=== PATIENT | female | born 1940 | race Caucasian/White ===

== ENCOUNTER 2021-07-29 15:12 | Inpatient (IN) | payer MEDICARE, OTHER ==
[~2021-07-29] VITALS: Ht 152.4 cm; Wt 65.4 kg
[2021-07-29] MEDS ORDERED: ERGO500090 PO (15:48)
[2021-07-29] MEDS ORDERED: NYST15PO9 TP (15:48)
[2021-07-29] MEDS ORDERED: [UNRECOGNIZED DRUG - CODE] TP (15:48)
[2021-07-29] MEDS ORDERED: MULT-460 PO (15:48)
[2021-07-29] MEDS ORDERED: ALPR1TAB2 PO (15:48)
[2021-07-29] MEDS ORDERED: ARIP15TA36 PO (15:48)
--- NOTE | 2021-07-29 16:03 | NUR ---
Nsg Note; admission Admission Note with Justification for Admission to [facility] Patient admitted to [facility] for protective oversight for emergency stabilization of acute psychiatric crisis. Pt admitted from: Home Mode of arrival: Secure Transport Accompanied By: EMS personnel Precipitating behaviors that initiated intake and admission: paranoia, packing bags to leave home, delusional, thinks someone is trying to steal her stuff, hiding knives, writing her name all over her clothes with a sharpie, insomnia, periods of aggression Description of failure of out patient attempts at stabilization in previous setting list behavior and medication trials: medication changes Behaviors and assessment findings upon admission: calm, amb to floor and room with staff, speech garbled, able to make needs known, states she was told she was coming here to see the doctor then go home, accepted well being told she is here for several weeks, conversant, oriented to name and but not date and knows she is in the hospital Plan: Admit for protective oversight for adjustment and stabilization of medications, behaviors and mood. Intense treatment regimen including groups, medication adjustments, therapy, consistent regimen for ADL's, self care, and sleep hygiene. Daily monitoring by Inpatient staff, Psychiatry, and Medical Physician.
[2021-07-29 16:12] VITALS: BP 162/79
[2021-07-29] MEDS ORDERED: NYSTATIN TOPICAL POWDER 15GM BOTTLE. TP PRN (16:15)
[2021-07-29] MEDS ORDERED: MAGNESIUM HYDROXIDE 2,400 MG/30 ML ORAL.SUSP. PO PRN (16:15)
[2021-07-29] MEDS ORDERED: MAG HYDROX/AL HYDROX/SIMETH 30 ML ORAL.SUSP PO PRN (16:15)
[2021-07-29] MEDS ORDERED: ACETAMINOPHEN 325 MG TABLET PO PRN (16:15)
[2021-07-29] MEDS ORDERED: METHYL SALICYLATE/MENTHOL TOPICAL OINTMENT 57GM TUBE. TP PRN (16:15)
[2021-07-29] MEDS ORDERED: diphenhydrAMINE/ZINC 2%/0.1% 28GM TUBE. TP PRN (16:30)
--- NOTE | 2021-07-29 17:04 | NUR ---
Nsg Note; vaccine status Pt refused flu vaccine this season and again refused it when offered today. Pt is not vaccinated for Covid
[2021-07-29 18:59] LABS: BASO # 0.1 x10^3/uL (0.0-0.2); BASO % 1 % (0-3); EOS # 0.1 x10^3/uL (0.0-0.7); EOS % 1 % (0-3); HEMATOCRIT 41.7 % (36.0-47.0); HEMOGLOBIN 13.9 g/dL (12.0-15.5); LYMPH # 1.3 x10^3/uL (1.0-4.8); LYMPH % 13 % (24-48); MEAN CORPUSCULAR HEMOGLOBIN 31 pg (25-35); MEAN CORPUSCULAR HGB CONC 33 g/dL (31-37); MEAN CORPUSCULAR VOLUME 92 fL (79-100); MONO # 0.5 x10^3/uL (0.0-1.1); MONO % 6 % (0-9); NEUT # 7.6 x10^3uL (1.8-7.7); NEUT % 79 % (31-73); PLATELET COUNT 295 x10^3/uL (140-400); RED BLOOD COUNT 4.55 x10^6/uL (3.50-5.40); RED CELL DISTRIBUTION WIDTH 14.6 % (11.5-14.5); WHITE BLOOD COUNT 9.6 x10^3/uL (4.0-11.0)
[2021-07-29 19:15] LABS: ALBUMIN 3.1 g/dL (3.4-5.0); ALBUMIN/GLOBULIN RATIO 0.8 (1.0-1.7); CALCIUM 9.7 mg/dL (8.5-10.1); CREATININE 0.9 mg/dL (0.6-1.0); GFR 60.4; MAGNESIUM 2.3 mg/dL (1.8-2.4); POTASSIUM 4.2 mmol/L (3.5-5.1); TOTAL BILIRUBIN 0.3 mg/dL (0.2-1.0); TOTAL PROTEIN 7.1 g/dL (6.4-8.2)
[2021-07-29] MEDS: ALPRAZolam 0.5 MG TABLET PO SCH ×2 (21:10→23:33)
--- NOTE | 2021-07-29 22:17 | PDOC ---
Exam Note: Florencio Note: Please also refer to the separate dictated note~for this date of service dictated separately.~Patient seen individually. Discussed the patient with Nursing staff reviewed the chart.~Reviewed interim history and current functioning. Reviewed vital signs,~Labs/ Radiology~and current medications noted below. Continue current treatment with the changes noted in the dictated addendum note Assessment: Vital Signs/I&O: Vital Signs Date Time Temp Pulse Resp B/P (MAP) Pulse Ox O2 Delivery O2 Flow Rate FiO2 07/29/21 16:12 98.1 68 16 162/79 (106) 95 Labs: Laboratory Tests Test 07/29/21 18:50 White Blood Count 9.6 x10^3/uL (4.0-11.0) Red Blood Count 4.55 x10^6/uL (3.50-5.40) Hemoglobin 13.9 g/dL (12.0-15.5) Hematocrit 41.7 % (36.0-47.0) Mean Corpuscular Volume 92 fL (79-100) Mean Corpuscular Hemoglobin 31 pg (25-35) Mean Corpuscular Hemoglobin Concent 33 g/dL (31-37) Red Cell Distribution Width 14.6 % (11.5-14.5) H Platelet Count 295 x10^3/uL (140-400) Neutrophils (%) (Auto) 79 % (31-73) H Lymphocytes (%) (Auto) 13 % (24-48) L Monocytes (%) (Auto) 6 % (0-9) Eosinophils (%) (Auto) 1 % (0-3) Basophils (%) (Auto) 1 % (0-3) Neutrophils # (Auto) 7.6 x10^3uL (1.8-7.7) Lymphocytes # (Auto) 1.3 x10^3/uL (1.0-4.8) Monocytes # (Auto) 0.5 x10^3/uL (0.0-1.1) Eosinophils # (Auto) 0.1 x10^3/uL (0.0-0.7) Basophils # (Auto) 0.1 x10^3/uL (0.0-0.2) Sodium Level 134 mmol/L (136-145) L Potassium Level 4.2 mmol/L (3.5-5.1) Chloride Level 101 mmol/L (98-107) Carbon Dioxide Level 27 mmol/L (21-32) Anion Gap 6 (6-14) Blood Urea Nitrogen 10 mg/dL (7-20) Creatinine 0.9 mg/dL (0.6-1.0) Estimated GFR (Cockcroft-Gault) 60.4 BUN/Creatinine Ratio 11 (6-20) Glucose Level 109 mg/dL (70-99) H Calcium Level 9.7 mg/dL (8.5-10.1) Magnesium Level 2.3 mg/dL (1.8-2.4) Total Bilirubin 0.3 mg/dL (0.2-1.0) Aspartate Amino Transferase (AST) 12 U/L (15-37) L Alanine Aminotransferase (ALT) 12 U/L (14-59) L Alkaline Phosphatase 93 U/L (46-116) Total Protein 7.1 g/dL (6.4-8.2) Albumin 3.1 g/dL (3.4-5.0) L Albumin/Globulin Ratio 0.8 (1.0-1.7) L Current Medications: I have reviewed the current psychotropics carefully including drug interactions. Risk benefit ratio favors no change other than as noted in my dictated progress note. Diagnosis: Problems: (1) Schizophrenia, chronic with acute exacerbation PATRIC DAVIS MD Jul 29, 2021 22:17
[2021-07-30 06:22] VITALS: BP 142/55
[2021-07-30 07:09] LABS: BACTERIA,URINE MANY /HPF (0-FEW); CLARITY,URINE CLOUDY; COLOR,URINE YELLOW; GLUCOSE,URINE NEG (NEG); NITRITE,URINE POS (NEG); UROBILINOGEN,URINE 0.2 mg/dL (0.2 mg/dL); WBC,URINE TNTC /HPF (0-4)
[2021-07-30] MEDS: ARIPiprazole 15 MG TABLET PO SCH (08:39)
[2021-07-30] MEDS: MULTIVITAMIN with MINERAL TABLET. PO SCH (08:39)
--- NOTE | 2021-07-30 09:21 | NUR ---
Nursing Note: Pt was in her room at time of AM med pass and assessment. She was pleasant and cooperative with her assessment. Compliant in taking her meds whole. She denied any pain at this time. Pt is currently working with PT in the hallway. Will continue to monitor.
--- NOTE | 2021-07-30 10:56 | NUR ---
WEEKLY ACTIVITY THERAPY NOTE Date of Admission:07/29/21 Date of AT Assessment: TBD Precipitating behaviors that initiated intake and admission: paranoia, packing bags to leave home, delusional, thinks someone is trying to steal her stuff, hiding knives, writing her name all over her clothes with a sharpie, insomnia, periods of aggression Goal aimed: TBD Initial Goal: TBD Weekly progress towards goal: NA Group participation level: NA Weekly highlights: arrived on [facility] Behaviors observed: Plan: meet/assess pt Beneficial adaptations: TBD
[2021-07-30] MEDS ORDERED: traZODone 50 MG TABLET. PO PRN (11:15)
--- NOTE | 2021-07-30 11:42 | HP ---
DATE OF SERVICE: 07/29/2021 ADMIT DATE: 07/29/2021 PSYCHIATRIC ADMISSION HISTORY/EVALUATION This note covers elements not covered in my initial note of 07/29. The patient was seen individually in the evening of 07/29 at length in her room. Discussed with Radha, nursing staff, reviewed the chart. Previously, I discussed the patient with Laurie Zimmerman, patient relations coordinator and obtained information from her primary care physician's office with ___ IDENTIFYING DATA: The patient is a 80-year-old female referred by her primary care physician noted above and admitted at the behest of her daughter who is her legal guardian on account of worsening psychosis within the context of her diagnosis of schizophrenia, chronic paranoid type versus schizoaffective disorder, bipolar type. She has been living at home with her and reportedly has been extremely paranoid, psychotic, hiding knives. She is delusional, thinking someone is stealing her things, packing her bags to leave. She is writing all over her clothing with a Sharpie. Reportedly, she had marked insomnia, had been off her medications and failed outpatient psychiatric interventions with her outpatient psychiatrist. The patient's behaviors were deemed dangerous and referred for inpatient psychiatric stabilization. CHIEF COMPLAINT: "I came today. They are stealing things from me." It is very difficult to understand the patient since she seems to have some articulation problems or perhaps some dystonia from her Abilify. HISTORY OF PRESENT ILLNESS: Reportedly, the patient has a long history of schizophrenia, chronic paranoid type. She has been treated as an outpatient and she states she has been treated by Dr. Solomon. Recently, she has had marked insomnia, psychosis, paranoia, agitation, sleep and appetite changes. No clear suicidal or homicidal ideation. PAST PSYCHIATRIC HISTORY: As above. MEDICAL HISTORY: Dysphagia, recurrent UTIs, vitamin D deficiency, garbled speech. DIET: Regular. ACCU-CHEKS: None. Ambulates independently. Takes medications whole. UA as needed. CURRENT PSYCHOTROPICS: Xanax 1 mg at bedtime, Abilify 15 mg a day. FAMILY HISTORY: Noncontributory. 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 No alcohol, drug abuse, physical, sexual, elder abuse. She is not known to be a perpetrator. REACTION TO HOSPITALIZATION: The patient accepting of it. ASSETS: Supportive family. REVIEW OF SYSTEMS: Difficulty with speech. No CV, , pulmonary, eye system symptoms on review. MENTAL STATUS EXAM: The patient is oriented to herself, situation. She knew she was admitted earlier today, knew the year was 2021, but thought the president was Been though she knew the prior president was President Jessica. Speech difficult to understand. Abstraction fair. Computation impaired. Language function intact. She is quite paranoid, suspicious with questionable hallucinations. No active suicidal or homicidal ideation. IMPRESSION: Schizophrenia, chronic paranoid type with acute exacerbation versus schizoaffective disorder, bipolar type, mixed, with psychotic features; anxiety disorder, unspecified; impulse control disorder, unspecified; mild cognitive impairment versus major neurocognitive disorder, early Alzheimer, vascular with delusion, depression. Rest as above. PLAN: Admit to Geropsychiatry unit at [facility]. I will see the patient daily individually from a psychiatric standpoint, medical followup, Dr. Dale/Dr. Bedoya. Continue the patient on her current psychotropics. Consider trazodone for insomnia or Remeron and Depakote as a mood stabilizer. May need to adjust Abilify depending on baseline assessment. ESTIMATED LENGTH OF STAY: 10-12 days. DISPOSITION PLANS: Back home to outpatient treatment once stable. GENESIS PEREZ: Maldonado TID: [id number]
[2021-07-30 13:10] LABS: THYROXINE 10.2 ug/dL (4.5-12.0)
--- NOTE | 2021-07-30 13:10 | NUR ---
ACTIVITY THERAPY ASSESSMENT completed based on notes, observation, and interview. Pt was sitting in the hallway after lunch and willing to answer assessment questions. Pt ambulates with a walker and did not report any pain during assessment. Pt has garbled speech and is very difficult to understand. Pt was delusional during time of assessment. HEAD USHER oriented pt to activities offered on the unit and asked her what activities she enjoys. Pt said "I don't get out much because I have a broken knee." Pt did say that she enjoys watching TV and reading. Pt reports that she is from her Romeo and HEAD USHER was unable to understand if she has children or not. Pt said "I'm " when talking about children.Pt did report some stress from being in the hospital but seemed to be in good spirits. Pt reports that she came from home and is fairly independent. Per notes pt has been cooperative and compliant sense admission. Initial goal aimed to increase socialization and engagement. Pt will participate in at least three Activity Therapy sessions per week. Addendum: 08/20/21 at 1128 by JOSSELINE CAPONE ACT Goal changed 08/20:Pt. will participate in at least five Activity Therapy sessions before discharge
--- NOTE | 2021-07-30 15:50 | RAD ---
EXAM: CT HEAD WITHOUT CONTRAST. HISTORY: Altered mental status. TECHNIQUE: Computed tomography of the head was performed without intravenous contrast. One or more of the following individualized dose reduction techniques were utilized for this examination: 1. Automated exposure control. 2. Adjustment of the mA and/or kV according to patient size. 3. Use of iterative reconstruction technique. COMPARISON: None. FINDINGS: There is no intracranial hemorrhage. Hypoattenuation within the periventricular white matte r indicates mild chronic microangiopathic change. The ventricles are normal in size and position. There is mucosal thickening bilaterally within the anterior nasal cavity, versus mucous retention cys ts or another mass. The orbits are unremarkable. The temporal bones are unremarkable. The calvarium reveals no suspicious lesions. IMPRESSION: 1. No acute intracranial findings for patient age. 2. Mucosal thickening versus a mass within the anterior nasal cavity. Recommend correlation with dire ct visualization. Electronically signed by: Felipe Pinzon MD (07/30/2021 3:48 PM) [id number]
--- NOTE | 2021-07-30 17:07 | NUR ---
Initial treatment team note: Pt ate 100% of breakfast this morning and slept 4.75 hours last night. Pt is mostly calm and compliant with cares. Pt is A/O x 4; however, was also found this morning in her room digging in her stools. Pt speech is difficult to understand and pt does at times appear anxious but is easily redirected. SW to completed PSA today and will look toward finding out more information re: her psych history so that records can be gathered.
[2021-07-30 17:12] VITALS: BP 124/54
[2021-07-30] MEDS: ALPRAZolam 0.5 MG TABLET PO SCH (20:41)
[2021-07-30 20:52] LABS: CHOLESTEROL/HDL RATIO 2.3; THYROID STIM HORMONE (TSH) 4.2 uIU/mL (0.358-3.740)
--- NOTE | 2021-07-30 22:13 | PDOC ---
Exam Note: Florencio Note: Please also refer to the separate dictated note~for this date of service dictated separately.~Patient seen individually. Discussed the patient with Nursing staff reviewed the chart.~Reviewed interim history and current functioning. Reviewed vital signs,~Labs/ Radiology~and current medications noted below. Continue current treatment with the changes noted in the dictated addendum note Assessment: Vital Signs/I&O: Vital Signs Date Time Temp Pulse Resp B/P (MAP) Pulse Ox O2 Delivery O2 Flow Rate FiO2 07/30/21 17:12 97.5 48 16 124/54 (77) 99 I & O 07/29/21 07/29/21 07/30/21 15:00 23:00 07:00 Intake Total 480 ml Balance 480 ml Labs: Laboratory Tests Test 07/30/21 05:50 Urine Collection Type Unknown Urine Color Yellow Urine Clarity Cloudy Urine pH 6.0 Urine Specific [place] 1.020 Urine Protein 100 mg/dl (NEG-TRACE) Urine Glucose (UA) Neg mg/dL (NEG) Urine Ketones (Stick) Neg mg/dL (NEG) Urine Blood Mod (NEG) Urine Nitrite Pos (NEG) Urine Bilirubin Neg (NEG) Urine Urobilinogen Dipstick 0.2 mg/dL (0.2 mg/dL) Urine Leukocyte Esterase Large (NEG) Urine RBC 3-5 /HPF (0-2) Urine WBC Tntc /HPF (0-4) Urine Squamous Epithelial Cells None /LPF Urine Bacteria Many /HPF (0-FEW) Current Medications: Meds: Laboratory Tests Test 07/30/21 05:50 Urine Collection Type Unknown Urine Color Yellow Urine Clarity Cloudy Urine pH 6.0 Urine Specific [place] 1.020 Urine Protein 100 mg/dl Urine Glucose (UA) Neg mg/dL Urine Ketones (Stick) Neg mg/dL Urine Blood Mod Urine Nitrite Pos Urine Bilirubin Neg Urine Urobilinogen Dipstick 0.2 mg/dL Urine Leukocyte Esterase Large Urine RBC 3-5 /HPF Urine WBC Tntc /HPF Urine Squamous Epithelial Cells None /LPF Urine Bacteria Many /HPF Current Medications Medications (Trade) Dose Ordered Sig/Dawit Route PRN Reason Start Time Stop Time Status Last Admin Dose Admin Acetaminophen (Tylenol) 650 mg PRN Q6HRS PRN PO MILD PAIN / TEMP > 100.3'F 07/29/21 16:15 Multi-Ingredient Ointment (Analgesic [place]) 1 paulo PRN QID PRN TP MUSCLE PAIN 07/29/21 16:15 Al Hydroxide/Mg Hydroxide (Mylanta Plus Xs) 15 ml PRN AFTMEALHC PRN PO DYSPEPSIA 07/29/21 16:15 Magnesium Hydroxide (Milk Of Magnesia) 2,400 mg PRN QHS PRN PO CONSTIPATION 07/29/21 16:15 Aripiprazole (Abilify) 15 mg DAILY PO 07/30/21 09:00 07/30/21 08:39 Nystatin (Nystop) 1 paulo PRN BID PRN TP RASH 07/29/21 16:15 Alprazolam (Xanax) 1 mg HS PO 07/29/21 21:00 07/30/21 20:41 Zinc Acetate/ Diphenhydramine (Benadryl Topical) 1 paulo PRN TID PRN TP ITCHY SKIN 07/29/21 16:30 Vitamin D (Vitamin D3) 50,000 unit WEEKLY PO 08/02/21 09:00 Multivitamins/ Calcium (Thera-M Plus) 1 tab DAILY PO 07/30/21 09:00 07/30/21 08:39 Olanzapine (ZyPREXA ZYDIS) 2.5 mg PRN Q2HR PRN PO PSYCHOSIS 07/30/21 11:15 Trazodone HCl (Desyrel) 50 mg PRN QHS PRN PO INSOMNIA, MAY REPEAT X1 07/30/21 11:15 07/30/21 20:41 Current Medications Medications (Trade) Dose Ordered Sig/Dawit Route PRN Reason Start Time Stop Time Status Last Admin Dose Admin Aripiprazole (Abilify) 15 mg DAILY PO 07/30/21 09:00 07/30/21 08:39 Multivitamins/ Calcium (Thera-M Plus) 1 tab DAILY PO 07/30/21 09:00 07/30/21 08:39 Trazodone HCl (Desyrel) 50 mg PRN QHS PRN PO INSOMNIA, MAY REPEAT X1 07/30/21 11:15 07/30/21 20:41 I have reviewed the current psychotropics carefully including drug interactions. Risk benefit ratio favors no change other than as noted in my dictated progress note. Diagnosis: Problems: (1) Schizophrenia, paranoid, chronic with acute exacerbation (2) Schizoaffective disorder, bipolar type (3) Mild cognitive impairment (4) Anxiety disorder, unspecified (5) Impulse control disorder, unspecified (6) Schizophrenia, chronic with acute exacerbation PATRIC DAVIS MD Jul 30, 2021 22:13
[2021-07-31 00:16] LABS: HEMOGLOBIN A1C 5.4 % (4.8-5.6)
--- NOTE | 2021-07-31 02:07 | NUR ---
assumed care of patient at 2100. Patient has been calm and cooperative. She took her medications whole with water. She did have some restlessness during the night, and was up a few times.
[2021-07-31 06:30] VITALS: BP 129/74
[2021-07-31] MEDS: ARIPiprazole 15 MG TABLET PO SCH (09:27)
[2021-07-31] MEDS: MULTIVITAMIN with MINERAL TABLET. PO SCH (09:27)
--- NOTE | 2021-07-31 13:01 | NUR ---
LATE ENTRY: WOUND CARE: Dressing change instructions left for this patient in book at nursing station. Spoke with RN regarding wounds and based dressings off picture assessment. Patient in isolation, unable to see yesterday. RN agreeable with dressings and v/u. Wound care will follow up next week if able to see patient. Please see orange paper regarding wound dressing change instructions.
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
[2021-07-31 16:10] VITALS: BP 109/63
--- NOTE | 2021-07-31 16:22 | NUR ---
Nursing note: MILL BEAM FITTER reports pulse rate 40. Manual pulse checked and confirmed pulse of 40. Pt is alert and oriented and is reporting no symptoms of low pulse rate. Will continue to monitor and report to Dr. Bedoya on rounds tomorrow.
[2021-07-31] MEDS: DIVALPROEX ER 500 MG TAB.ER.24H PO SCH (21:10)
[2021-07-31] MEDS: ALPRAZolam 0.5 MG TABLET PO SCH (21:10)
--- NOTE | 2021-07-31 22:15 | PDOC ---
Exam Note: Florencio Note: Please also refer to the separate dictated note~for this date of service dictated separately.~Patient seen individually. Discussed the patient with Nursing staff reviewed the chart.~Reviewed interim history and current functioning. Reviewed vital signs,~Labs/ Radiology~and current medications noted below. Continue current treatment with the changes noted in the dictated addendum note Assessment: Vital Signs/I&O: Vital Signs Date Time Temp Pulse Resp B/P (MAP) Pulse Ox O2 Delivery O2 Flow Rate FiO2 07/31/21 16:10 97.2 18 109/63 (78) 99 07/31/21 06:30 75 Room Air I & O 07/30/21 07/30/21 07/31/21 14:59 22:59 06:59 Intake Total 880 ml 780 ml Balance 880 ml 780 ml Current Medications: Meds: Current Medications Medications (Trade) Dose Ordered Sig/Dawit Route PRN Reason Start Time Stop Time Status Last Admin Dose Admin Acetaminophen (Tylenol) 650 mg PRN Q6HRS PRN PO MILD PAIN / TEMP > 100.3'F 07/29/21 16:15 Multi-Ingredient Ointment (Analgesic [place]) 1 paulo PRN QID PRN TP MUSCLE PAIN 07/29/21 16:15 Al Hydroxide/Mg Hydroxide (Mylanta Plus Xs) 15 ml PRN AFTMEALHC PRN PO DYSPEPSIA 07/29/21 16:15 Magnesium Hydroxide (Milk Of Magnesia) 2,400 mg PRN QHS PRN PO CONSTIPATION 07/29/21 16:15 Aripiprazole (Abilify) 15 mg DAILY PO 07/30/21 09:00 07/31/21 09:27 Nystatin (Nystop) 1 paulo PRN BID PRN TP RASH 07/29/21 16:15 Alprazolam (Xanax) 1 mg HS PO 07/29/21 21:00 07/31/21 21:10 Zinc Acetate/ Diphenhydramine (Benadryl Topical) 1 paulo PRN TID PRN TP ITCHY SKIN 07/29/21 16:30 Vitamin D (Vitamin D3) 50,000 unit WEEKLY PO 08/02/21 09:00 Multivitamins/ Calcium (Thera-M Plus) 1 tab DAILY PO 07/30/21 09:00 07/31/21 09:27 Olanzapine (ZyPREXA ZYDIS) 2.5 mg PRN Q2HR PRN PO PSYCHOSIS 07/30/21 11:15 Trazodone HCl (Desyrel) 50 mg PRN QHS PRN PO INSOMNIA, MAY REPEAT X1 07/30/21 11:15 07/30/21 20:41 Divalproex Sodium (Depakote Er) 500 mg QHS PO 07/31/21 21:00 07/31/21 21:10 Current Medications Medications (Trade) Dose Ordered Sig/Dawit Route PRN Reason Start Time Stop Time Status Last Admin Dose Admin Divalproex Sodium (Depakote Er) 500 mg QHS PO 07/31/21 21:00 07/31/21 21:10 I have reviewed the current psychotropics carefully including drug interactions. Risk benefit ratio favors no change other than as noted in my dictated progress note. Diagnosis: Problems: (1) Bipolar disorder, current episode mixed, severe, with psychotic features (2) Schizophrenia, chronic with acute exacerbation (3) Schizoaffective disorder, bipolar type (4) Impulse control disorder, unspecified (5) Mild cognitive impairment (6) Anxiety disorder, unspecified (7) Schizophrenia, paranoid, chronic with acute exacerbation PATRIC DAVIS MD Jul 31, 2021 22:15
--- NOTE | 2021-08-01 02:52 | CONS ---
DATE OF CONSULTATION: 07/31/2021 ATTENDING PHYSICIANS: Dr. Muñoz, Dr. Bedoya. We are asked to see the patient for medical consultation. HISTORY OF PRESENT ILLNESS: The patient is a 80-year-old female who has been living at home with her in [place], [place]. She has a longstanding history of schizoaffective disorder. She has been somewhat inappropriate, took a Sharpie and wrote names on her clothing. She has been hiding knives and seeing things, somewhat delusional. She is admitted here for further treatment adjustment of her medications. PAST MEDICAL HISTORY: From the chart indicates that she has a longstanding history of schizoaffective disorder, dysphagia, history of urinary tract infection and some dysarthria with her language. MEDICATIONS: Quite simple. She was on scheduled alprazolam, Abilify, diphenhydramine, vitamin D2, multivitamin and nystatin. ALLERGIES: SHE HAS ALLERGIES TO HALOPERIDOL, EXACT REACTION IS UNCLEAR. SOCIAL HISTORY: She is a nonsmoker, nondrinker. FAMILY HISTORY: Unobtainable. REVIEW OF SYSTEMS: Unobtainable due to the patient's confusion. PHYSICAL EXAMINATION: GENERAL: When I saw her, this is a pleasant elderly female in no acute distress. INITIAL VITAL SIGNS: Showed blood pressure 129/74 mm, her temperature 97.1 degrees Fahrenheit, her pulse is 75 and regular, oxygen saturation 99% on room air. HEENT: Head is without trauma. Pupils are reactive. Sclerae nonicteric. There is mild component of tardive dyskinesia. NECK: Supple, no bruits. LUNGS: Good breath sounds. CARDIOVASCULAR: Regular heart tones. No gallops. ABDOMEN: Soft. No guarding. EXTREMITIES: Showed degenerative arthritis and changes of her knees and ankles. SKIN: Warm and dry. NEUROLOGIC: Pleasantly confused. PERTINENT LABORATORY AND X-RAY STUDIES: Her admission hemoglobin was 13.9 g/dL with white count of 9600. Her TSH was normal. Her chemistry panel was unremarkable. Serology negative for Treponema pallidum. ASSESSMENT: 1. This 80-year-old female has a longstanding schizoaffective disorder with delusional behavior. 2. History of dysarthria and dysphagia. RECOMMENDATIONS: 1. I have reviewed her medications they are quite simple and should be continued on the same dosage. 2. She is stable from a medical standpoint at this time. Thank you again for asking me to see the patient for medical consultation. We shall gladly follow along during her inpatient course. UMER/LAKISHA DR: Hossein TID: [id number]
--- NOTE | 2021-08-01 06:10 | NUR ---
Patient was withdrawn to her room in the evening. She is pleasant when approached and cooperative. Patients speech is very hard to understand it is garbled and unintelligible. Patient drank an entire glass of water with her HS medications. Her preliminary UA has shown E.Coli >100,000. Patient was started on depakote ER last night, no adverse reactions have been noted.
[2021-08-01 06:18] VITALS: BP 137/59
[2021-08-01] MEDS: MULTIVITAMIN with MINERAL TABLET. PO SCH (09:10)
[2021-08-01] MEDS: ARIPiprazole 15 MG TABLET PO SCH (09:10)
--- NOTE | 2021-08-01 09:18 | PDOC ---
Exam Note: Florencio Note: This note is a late entry for 07/30/2021 covers elements not covered in my initial note. Subjective: The patient was reviewed at treatment team meeting individually in the morning on 07/30/2021 with Sofie Abdi, Laurie Light, and Irena Herrera (social services coordinator), Floridalma, activity therapy, and Cuco SIMON, discussed and reviewed the chart. Discussed her diagnoses, progress at length. The patient slept 4-3/4 hours previous night. Average sleep 4-3/4 hours. Appetite 100%. We will do a CT head if not done in 6 months and requesting past psyche records. She is alert and oriented x4. UA has been checked this morning. She has been digging in her bowels. We will defer to Dr. Dale, somewhat anxious at midnight when she woke up. We will start Zyprexa 2.5 mg q.2h. p.r.n. psychosis and agitation, maximum 7.5 mg in 24 hours and trazodone 50 mg h.s. p.r.n., may repeat x1. Review of Systems: Hard of hearing. No CV, , pulmonary, eye system symptoms on review. Reliability poor. Mental Status Exam: The patient is oriented to herself. Insight and judgment, recent and remote memory, attention and concentration, fund of knowledge is poor consistent with her diagnoses. Laboratory Data: Reviewed. Impression: Schizoaffective disorder, bipolar type, mixed with psychotic features. Schizophrenia with acute exacerbation. Anxiety disorder unspecified. Impulse control disorder unspecified. Plan: We will continue current psychotropics. Reviewed drug interactions, risk-benefit ratio. Assessment: Vital Signs/I&O: Vital Signs Date Time Temp Pulse Resp B/P (MAP) Pulse Ox O2 Delivery O2 Flow Rate FiO2 08/01/21 06:18 97.2 44 16 137/59 (85) 98 07/31/21 06:30 Room Air I & O 07/31/21 07/31/21 08/01/21 15:00 23:00 07:00 Intake Total 720 ml 120 ml Balance 720 ml 120 ml Current Medications: Meds: Current Medications Medications (Trade) Dose Ordered Sig/Dawit Route PRN Reason Start Time Stop Time Status Last Admin Dose Admin Divalproex Sodium (Depakote Er) 500 mg QHS PO 07/31/21 21:00 07/31/21 21:10 I have reviewed the current psychotropics carefully including drug interactions. Risk benefit ratio favors no change other than as noted in my dictated progress note. Diagnosis: Problems: (1) Schizophrenia, chronic with acute exacerbation (2) Schizoaffective disorder, bipolar type (3) Impulse control disorder, unspecified (4) Mild cognitive impairment (5) Anxiety disorder, unspecified (6) Schizophrenia, paranoid, chronic with acute exacerbation (7) Bipolar disorder, current episode mixed, severe, with psychotic features PATRIC DAVIS MD Aug 01, 2021 09:18
[2021-08-01 15:56] VITALS: BP 109/52
[2021-08-01] MEDS: DIVALPROEX ER 500 MG TAB.ER.24H PO SCH (20:27)
[2021-08-01] MEDS: ALPRAZolam 0.5 MG TABLET PO SCH (20:27)
--- NOTE | 2021-08-01 22:02 | PDOC ---
Exam Note: Florencio Note: Please also refer to the separate dictated note~for this date of service dictated separately.~Patient seen individually. Discussed the patient with Nursing staff reviewed the chart.~Reviewed interim history and current functioning. Reviewed vital signs,~Labs/ Radiology~and current medications noted below. Continue current treatment with the changes noted in the dictated addendum note Assessment: Vital Signs/I&O: Vital Signs Date Time Temp Pulse Resp B/P (MAP) Pulse Ox O2 Delivery O2 Flow Rate FiO2 08/01/21 15:56 97.4 56 16 109/52 (71) 97 07/31/21 06:30 Room Air I & O 07/31/21 07/31/21 08/01/21 15:00 23:00 07:00 Intake Total 720 ml 120 ml Balance 720 ml 120 ml Current Medications: Meds: Current Medications Medications (Trade) Dose Ordered Sig/Dawit Route PRN Reason Start Time Stop Time Status Last Admin Dose Admin Acetaminophen (Tylenol) 650 mg PRN Q6HRS PRN PO MILD PAIN / TEMP > 100.3'F 07/29/21 16:15 Multi-Ingredient Ointment (Analgesic [place]) 1 paulo PRN QID PRN TP MUSCLE PAIN 07/29/21 16:15 Al Hydroxide/Mg Hydroxide (Mylanta Plus Xs) 15 ml PRN AFTMEALHC PRN PO DYSPEPSIA 07/29/21 16:15 Magnesium Hydroxide (Milk Of Magnesia) 2,400 mg PRN QHS PRN PO CONSTIPATION 07/29/21 16:15 Aripiprazole (Abilify) 15 mg DAILY PO 07/30/21 09:00 08/01/21 09:10 Nystatin (Nystop) 1 paulo PRN BID PRN TP RASH 07/29/21 16:15 Alprazolam (Xanax) 1 mg HS PO 07/29/21 21:00 08/01/21 20:27 Zinc Acetate/ Diphenhydramine (Benadryl Topical) 1 paulo PRN TID PRN TP ITCHY SKIN 07/29/21 16:30 Vitamin D (Vitamin D3) 50,000 unit WEEKLY PO 08/02/21 09:00 Multivitamins/ Calcium (Thera-M Plus) 1 tab DAILY PO 07/30/21 09:00 08/01/21 09:10 Olanzapine (ZyPREXA ZYDIS) 2.5 mg PRN Q2HR PRN PO PSYCHOSIS 07/30/21 11:15 Trazodone HCl (Desyrel) 50 mg PRN QHS PRN PO INSOMNIA, MAY REPEAT X1 07/30/21 11:15 08/01/21 12:48 DC 07/30/21 20:41 Divalproex Sodium (Depakote Er) 500 mg QHS PO 07/31/21 21:00 08/01/21 20:27 Levofloxacin (Levaquin) 250 mg DAILY06 PO 08/02/21 06:00 I have reviewed the current psychotropics carefully including drug interactions. Risk benefit ratio favors no change other than as noted in my dictated progress note. Diagnosis: Problems: (1) Schizophrenia, chronic with acute exacerbation (2) Schizoaffective disorder, bipolar type (3) Impulse control disorder, unspecified (4) Mild cognitive impairment (5) Anxiety disorder, unspecified (6) Schizophrenia, paranoid, chronic with acute exacerbation (7) Bipolar disorder, current episode mixed, severe, with psychotic features PATRIC DAVIS MD Aug 01, 2021 22:02
--- NOTE | 2021-08-01 23:11 | NUR ---
Pt non compliant with her shower this evening, playing possum the entire time refusing to help staff shower her. Once placed in bed, pt was compliant with whole medications. Pt A/O to name and . Pt has very garbled speech and is hard to understand. No delusions noted this evening.
--- NOTE | 2021-08-01 23:17 | PDOC ---
Exam Note: Florencio Note: This note is a late entry for 07/31/2021 covers elements not covered in my initial note. Subjective: The patient was seen individually on 07/31/2021, discussed and reviewed the chart with Kristen SIMON. The patient slept 4-3/4 hours previous night. She has been fairly cooperative, withdrawn, spends much time in her room, still somewhat paranoid. I met with her in her room at some length. Review of Systems: Hard of hearing. No CV, , pulmonary, eye system symptoms on review. Mental Status Exam: The patient is oriented to herself and situation. Speech has some latency, difficult to understand but typical for her. Abstraction fair. Computation impaired. Language function intact. Mood and affect remains somewhat withdrawn. Laboratory Data: Reviewed. Impression: Schizoaffective disorder, bipolar type, with psychotic features. Anxiety disorder unspecified. Impulse control disorder unspecified. Plan: We will continue current psychotropics mentioned in my initial note including Abilify 15 mg a day. Start Depakote ER 500 mg p.o. h.s. Reviewed drug interactions, risk-benefit ratio. Check CBC, CMP, valproic level in 3 days. Adjust as clinically indicated. Assessment: Vital Signs/I&O: Vital Signs Date Time Temp Pulse Resp B/P (MAP) Pulse Ox O2 Delivery O2 Flow Rate FiO2 08/01/21 15:56 97.4 56 16 109/52 (71) 97 07/31/21 06:30 Room Air I & O 07/31/21 07/31/21 08/01/21 15:00 23:00 07:00 Intake Total 720 ml 120 ml Balance 720 ml 120 ml Current Medications: I have reviewed the current psychotropics carefully including drug interactions. Risk benefit ratio favors no change other than as noted in my dictated progress note. Diagnosis: Problems: (1) Schizoaffective disorder, bipolar type (2) Impulse control disorder, unspecified (3) Mild cognitive impairment (4) Anxiety disorder, unspecified (5) Bipolar disorder, current episode mixed, severe, with psychotic features PATRIC DAVIS MD Aug 01, 2021 23:16
[2021-08-02] MEDS: levoFLOXacin 250 MG TABLET PO SCH (05:27)
[2021-08-02 06:45] VITALS: BP 130/69
[2021-08-02] MEDS: CHOLECALCIFEROL (VITAMIN D3) 50,000 UNIT CAPSULE PO SCH (08:52)
[2021-08-02] MEDS: MULTIVITAMIN with MINERAL TABLET. PO SCH (08:52)
[2021-08-02] MEDS: ARIPiprazole 15 MG TABLET PO SCH (08:52)
--- NOTE | 2021-08-02 14:55 | NUR ---
Nursing note: Patient in bedroom for assessment & medication. She is compliant with medications taken whole. She is A/O X2, unable to report , or situation, did state she knew she was in the hospital. Patient denies pain/discomfort. She is very garbled when she speaks making it hard to understand her. She is calm, & cooperative. She ambulates with walker, can be unsteady at times. She is currently sitting in chair in her room. Will continue to monitor.
[2021-08-02 15:57] VITALS: BP 114/45
[2021-08-02] MEDS: ALPRAZolam 0.5 MG TABLET PO SCH (20:01)
[2021-08-02] MEDS: DIVALPROEX ER 500 MG TAB.ER.24H PO SCH (20:01)
--- NOTE | 2021-08-02 22:02 | PDOC ---
Exam Note: Florencio Note: Please also refer to the separate dictated note~for this date of service dictated separately.~Patient seen individually. Discussed the patient with Nursing staff reviewed the chart.~Reviewed interim history and current functioning. Reviewed vital signs,~Labs/ Radiology~and current medications noted below. Continue current treatment with the changes noted in the dictated addendum note Assessment: Vital Signs/I&O: Vital Signs Date Time Temp Pulse Resp B/P (MAP) Pulse Ox O2 Delivery O2 Flow Rate FiO2 08/02/21 15:57 98.9 49 16 114/45 (68) 97 08/02/21 06:45 Room Air I & O 08/01/21 08/01/21 08/02/21 15:00 23:00 07:00 Intake Total 420 ml 360 ml Balance 420 ml 360 ml Current Medications: Meds: Current Medications Medications (Trade) Dose Ordered Sig/Dawit Route PRN Reason Start Time Stop Time Status Last Admin Dose Admin Acetaminophen (Tylenol) 650 mg PRN Q6HRS PRN PO MILD PAIN / TEMP > 100.3'F 07/29/21 16:15 Multi-Ingredient Ointment (Analgesic Barn[place]) 1 paulo PRN QID PRN TP MUSCLE PAIN 07/29/21 16:15 Al Hydroxide/Mg Hydroxide (Mylanta Plus Xs) 15 ml PRN AFTMEALHC PRN PO DYSPEPSIA 07/29/21 16:15 Magnesium Hydroxide (Milk Of Magnesia) 2,400 mg PRN QHS PRN PO CONSTIPATION 07/29/21 16:15 Aripiprazole (Abilify) 15 mg DAILY PO 07/30/21 09:00 08/02/21 08:52 Nystatin (Nystop) 1 paulo PRN BID PRN TP RASH 07/29/21 16:15 Alprazolam (Xanax) 1 mg HS PO 07/29/21 21:00 08/02/21 20:01 Zinc Acetate/ Diphenhydramine (Benadryl Topical) 1 paulo PRN TID PRN TP ITCHY SKIN 07/29/21 16:30 Vitamin D (Vitamin D3) 50,000 unit WEEKLY PO 08/02/21 09:00 08/02/21 08:52 Multivitamins/ Calcium (Thera-M Plus) 1 tab DAILY PO 07/30/21 09:00 08/02/21 08:52 Olanzapine (ZyPREXA ZYDIS) 2.5 mg PRN Q2HR PRN PO PSYCHOSIS 07/30/21 11:15 Trazodone HCl (Desyrel) 50 mg PRN QHS PRN PO INSOMNIA, MAY REPEAT X1 07/30/21 11:15 08/01/21 12:48 DC 07/30/21 20:41 Divalproex Sodium (Depakote Er) 500 mg QHS PO 07/31/21 21:00 08/02/21 20:01 Levofloxacin (Levaquin) 250 mg DAILY06 PO 08/02/21 06:00 08/06/21 23:00 08/02/21 05:27 Current Medications Medications (Trade) Dose Ordered Sig/Dawit Route PRN Reason Start Time Stop Time Status Last Admin Dose Admin Vitamin D (Vitamin D3) 50,000 unit WEEKLY PO 08/02/21 09:00 08/02/21 08:52 Levofloxacin (Levaquin) 250 mg DAILY06 PO 08/02/21 06:00 08/06/21 23:00 08/02/21 05:27 I have reviewed the current psychotropics carefully including drug interactions. Risk benefit ratio favors no change other than as noted in my dictated progress note. Diagnosis: Problems: (1) Schizophrenia, chronic with acute exacerbation (2) Schizoaffective disorder, bipolar type (3) Impulse control disorder, unspecified (4) Mild cognitive impairment (5) Anxiety disorder, unspecified (6) Schizophrenia, paranoid, chronic with acute exacerbation (7) Bipolar disorder, current episode mixed, severe, with psychotic features PATRIC DAVIS MD Aug 02, 2021 22:02
--- NOTE | 2021-08-02 23:21 | NUR ---
Pt located in her room this evening sitting calmly. Pt pleasantly confused, A/O to name and . Compliant with whole medications.
[2021-08-03] MEDS: levoFLOXacin 250 MG TABLET PO SCH (05:26)
[2021-08-03 06:04] VITALS: BP 123/54
--- NOTE | 2021-08-03 06:29 | EKG ---
[address] [address] Test Date: 2021-08-03 Test Time: 05:05:53 Pat Name: SARAHI ARGUETA Department: Room: [address] [place] [address] Gender: F Superintendent Commissary: TERESA : 1940 Requested By: MOIRA MCKEE Order Number: [id number] Reading MD: Maikol Mcclain Measurements Intervals [place] Rate: 39 P: MA: QRS: -146 QRSD: 86 T: -159 QT: 548 QTc: 442 Interpretive Statements SINUS BRADYCARDIA QRS(T) CONTOUR ABNORMALITY CONSISTENT WITH ANTEROSEPTAL INFARCT AGE UNDETERMINED CONSISTENT WITH INFEROLATERAL INFARCT AGE UNDETERMINED Electronically Signed On 08-03-2021 8:59:07 CDT by Maikol Mcclain
[2021-08-03 07:53] LABS: BASO % 0 % (0-3); EOS # 0.5 x10^3/uL (0.0-0.7); EOS % 7 % (0-3); HEMATOCRIT 38.7 % (36.0-47.0); HEMOGLOBIN 12.7 g/dL (12.0-15.5); LYMPH % 28 % (24-48); MEAN CORPUSCULAR HEMOGLOBIN 30 pg (25-35); MEAN CORPUSCULAR HGB CONC 33 g/dL (31-37); MEAN CORPUSCULAR VOLUME 93 fL (79-100); MONO # 0.5 x10^3/uL (0.0-1.1); MONO % 7 % (0-9); NEUT # 4.1 x10^3uL (1.8-7.7); NEUT % 58 % (31-73); PLATELET COUNT 272 x10^3/uL (140-400); RED BLOOD COUNT 4.18 x10^6/uL (3.50-5.40); WHITE BLOOD COUNT 7.2 x10^3/uL (4.0-11.0)
[2021-08-03 08:10] LABS: ALBUMIN 2.7 g/dL (3.4-5.0); ALBUMIN/GLOBULIN RATIO 0.9 (1.0-1.7); ALK PHOS 79 U/L (46-116); ALT (SGPT) 9 U/L (14-59); ANION GAP 11 (6-14); AST (SGOT) 12 U/L (15-37); BLOOD UREA NITROGEN 15 mg/dL (7-20); BUN/CREATININE RATIO 21 (6-20); CALCIUM 9.4 mg/dL (8.5-10.1); CARBON DIOXIDE 25 mmol/L (21-32); CHLORIDE 100 mmol/L (98-107); CREATININE 0.7 mg/dL (0.6-1.0); GFR 80.7; GLUCOSE 125 mg/dL (70-99); POTASSIUM 4.2 mmol/L (3.5-5.1); SODIUM 136 mmol/L (136-145); TOTAL BILIRUBIN 0.3 mg/dL (0.2-1.0); TOTAL PROTEIN 5.8 g/dL (6.4-8.2)
[2021-08-03 08:13] LABS: VAL ACID 40 mcg/mL (50-100)
[2021-08-03] MEDS: ARIPiprazole 15 MG TABLET PO SCH (08:43)
[2021-08-03] MEDS: MULTIVITAMIN with MINERAL TABLET. PO SCH (08:43)
[2021-08-03] MEDS: LACTOBACILLUS RHAMNOSUS GG 1 CAPSULE. PO SCH ×2 (08:43→20:06)
--- NOTE | 2021-08-03 08:54 | PDOC ---
Exam Note: Florencio Note: This note is a late entry for 08/01/2021 covers elements not covered in my initial note. Subjective: The patient was seen individually on 08/01/2021, discussed and reviewed the chart with Kerry SIMON. The patient slept 5-1/4 hours previous night. Overall she is doing a little better. Nursing staff noticed that she was trying to make herself vomit after breakfast. She was talking about being and people here were trying to poison her. Her trazodone has been stopped secondary to possible heart rate in the 40s. Review of Systems: Hard of hearing. No CV, , pulmonary, eye system symptoms on review. Mental Status Exam: The patient is oriented to herself and situation. I met with her in her room. Speech difficult to understand because of deficit and she remains paranoid somewhat delusional. Abstraction fair. Computation impaired. Language function intact. Mood and affect remains somewhat withdrawn. Laboratory Data: Reviewed. Impression: Schizoaffective disorder, bipolar type, with psychotic features. Anxiety disorder unspecified. Impulse control disorder unspecified. Plan: We will continue current psychotropics mentioned in my initial note. Reviewed drug interactions, risk-benefit ratio. Adjust as clinically indicated. Assessment: Vital Signs/I&O: Vital Signs Date Time Temp Pulse Resp B/P (MAP) Pulse Ox O2 Delivery O2 Flow Rate FiO2 08/03/21 06:04 98.2 41 20 123/54 (77) 97 08/02/21 06:45 Room Air I & O 08/02/21 08/02/21 08/03/21 15:00 23:00 07:00 Intake Total 720 ml 360 ml Balance 720 ml 360 ml Labs: Laboratory Tests Test 08/03/21 06:20 White Blood Count 7.2 x10^3/uL (4.0-11.0) Red Blood Count 4.18 x10^6/uL (3.50-5.40) Hemoglobin 12.7 g/dL (12.0-15.5) Hematocrit 38.7 % (36.0-47.0) Mean Corpuscular Volume 93 fL (79-100) Mean Corpuscular Hemoglobin 30 pg (25-35) Mean Corpuscular Hemoglobin Concent 33 g/dL (31-37) Red Cell Distribution Width 15.0 % (11.5-14.5) H Platelet Count 272 x10^3/uL (140-400) Neutrophils (%) (Auto) 58 % (31-73) Lymphocytes (%) (Auto) 28 % (24-48) Monocytes (%) (Auto) 7 % (0-9) Eosinophils (%) (Auto) 7 % (0-3) H Basophils (%) (Auto) 0 % (0-3) Neutrophils # (Auto) 4.1 x10^3uL (1.8-7.7) Lymphocytes # (Auto) 2.0 x10^3/uL (1.0-4.8) Monocytes # (Auto) 0.5 x10^3/uL (0.0-1.1) Eosinophils # (Auto) 0.5 x10^3/uL (0.0-0.7) Basophils # (Auto) 0.0 x10^3/uL (0.0-0.2) Sodium Level 136 mmol/L (136-145) Potassium Level 4.2 mmol/L (3.5-5.1) Chloride Level 100 mmol/L (98-107) Carbon Dioxide Level 25 mmol/L (21-32) Anion Gap 11 (6-14) Blood Urea Nitrogen 15 mg/dL (7-20) Creatinine 0.7 mg/dL (0.6-1.0) Estimated GFR (Cockcroft-Gault) 80.7 BUN/Creatinine Ratio 21 (6-20) H Glucose Level 125 mg/dL (70-99) H Calcium Level 9.4 mg/dL (8.5-10.1) Total Bilirubin 0.3 mg/dL (0.2-1.0) Aspartate Amino Transferase (AST) 12 U/L (15-37) L Alanine Aminotransferase (ALT) 9 U/L (14-59) L Alkaline Phosphatase 79 U/L (46-116) Total Protein 5.8 g/dL (6.4-8.2) L Albumin 2.7 g/dL (3.4-5.0) L Albumin/Globulin Ratio 0.9 (1.0-1.7) L Valproic Acid Level 40 mcg/mL (50-100) L Valproic Acid Last Dose Date 08/02/21 Valproic Acid Last Dose Time 2100 Current Medications: Meds: Current Medications Medications (Trade) Dose Ordered Sig/Dawit Route PRN Reason Start Time Stop Time Status Last Admin Dose Admin Vitamin D (Vitamin D3) 50,000 unit WEEKLY PO 08/02/21 09:00 08/02/21 08:52 Lactobacillus Rhamnosus (Culturelle) 1 cap BID PO 08/03/21 09:00 08/03/21 08:43 I have reviewed the current psychotropics carefully including drug interactions. Risk benefit ratio favors no change other than as noted in my dictated progress note. Diagnosis: Problems: (1) Schizophrenia, chronic with acute exacerbation (2) Schizoaffective disorder, bipolar type (3) Impulse control disorder, unspecified (4) Mild cognitive impairment (5) Anxiety disorder, unspecified (6) Schizophrenia, paranoid, chronic with acute exacerbation (7) Bipolar disorder, current episode mixed, severe, with psychotic features PATRIC DAVIS MD Aug 03, 2021 08:54
--- NOTE | 2021-08-03 14:22 | NUR ---
SW contacted pt dtrs to do a conference call on how pt is doing and to have pt present so that they could speak to her. Pt informed them that she was doing well and doing what is asked of her. Pt noted that she had her slippers and wears her jacket all the time because it is cold in here. Pt then opened her jacket and told SW "it's raggedy" and laughed. Pt requested that her dtr send her brush and her Bible. Pt dtr questioned SW if that possible and SW noted she could have them. SW noted no major need for a bunch of snacks or depends; however, pt did ask for cookies and noted she likes the cookies with icing on them. SW told the family the cookies were perfectly acceptable. Pt family inquired about having a Facetime set up and SW planned to have a Zoom meeting for Tuesday at 1300. Addendum: 08/05/21 at 1415 by BARBARA GUIDO Correction: Zoom meeting is for Saturday 08/05 @ 1300
--- NOTE | 2021-08-03 14:37 | NUR ---
Nursing note: Patient in bedroom for assessment & medication. She is compliant with medications taken whole. She is A/O X3, unable to report , or situation. She reported being and having a different last name, this nurse was unable to understand the name voiced. Patient denies pain/discomfort. She is very garbled when she speaks making it hard to understand her. She is calm, & cooperative. She ambulates with walker, can be unsteady at times. She is currently sitting in chair in her room. Will continue to monitor.
[2021-08-03 15:35] VITALS: BP 156/63
[2021-08-03] MEDS: ALPRAZolam 0.5 MG TABLET PO SCH (20:06)
[2021-08-03] MEDS: DIVALPROEX ER 500 MG TAB.ER.24H PO SCH (20:06)
[2021-08-03] MEDS: risperiDONE 0.5 MG TABLET. PO SCH (20:06)
[2021-08-03] MEDS: DIVALPROEX ER 250 MG TAB.ER.24H. PO SCH (20:06)
--- NOTE | 2021-08-03 21:49 | PDOC ---
Exam Note: Florencio Note: Please also refer to the separate dictated note~for this date of service dictated separately.~Patient seen individually. Discussed the patient with Nursing staff reviewed the chart.~Reviewed interim history and current functioning. Reviewed vital signs,~Labs/ Radiology~and current medications noted below. Continue current treatment with the changes noted in the dictated addendum note Assessment: Vital Signs/I&O: Vital Signs Date Time Temp Pulse Resp B/P (MAP) Pulse Ox O2 Delivery O2 Flow Rate FiO2 08/03/21 15:35 98.2 55 16 156/63 (94) 95 08/02/21 06:45 Room Air I & O 08/02/21 08/02/21 08/03/21 15:00 23:00 07:00 Intake Total 720 ml 360 ml Balance 720 ml 360 ml Labs: Laboratory Tests Test 08/03/21 06:20 White Blood Count 7.2 x10^3/uL (4.0-11.0) Red Blood Count 4.18 x10^6/uL (3.50-5.40) Hemoglobin 12.7 g/dL (12.0-15.5) Hematocrit 38.7 % (36.0-47.0) Mean Corpuscular Volume 93 fL (79-100) Mean Corpuscular Hemoglobin 30 pg (25-35) Mean Corpuscular Hemoglobin Concent 33 g/dL (31-37) Red Cell Distribution Width 15.0 % (11.5-14.5) H Platelet Count 272 x10^3/uL (140-400) Neutrophils (%) (Auto) 58 % (31-73) Lymphocytes (%) (Auto) 28 % (24-48) Monocytes (%) (Auto) 7 % (0-9) Eosinophils (%) (Auto) 7 % (0-3) H Basophils (%) (Auto) 0 % (0-3) Neutrophils # (Auto) 4.1 x10^3uL (1.8-7.7) Lymphocytes # (Auto) 2.0 x10^3/uL (1.0-4.8) Monocytes # (Auto) 0.5 x10^3/uL (0.0-1.1) Eosinophils # (Auto) 0.5 x10^3/uL (0.0-0.7) Basophils # (Auto) 0.0 x10^3/uL (0.0-0.2) Sodium Level 136 mmol/L (136-145) Potassium Level 4.2 mmol/L (3.5-5.1) Chloride Level 100 mmol/L (98-107) Carbon Dioxide Level 25 mmol/L (21-32) Anion Gap 11 (6-14) Blood Urea Nitrogen 15 mg/dL (7-20) Creatinine 0.7 mg/dL (0.6-1.0) Estimated GFR (Cockcroft-Gault) 80.7 BUN/Creatinine Ratio 21 (6-20) H Glucose Level 125 mg/dL (70-99) H Calcium Level 9.4 mg/dL (8.5-10.1) Total Bilirubin 0.3 mg/dL (0.2-1.0) Aspartate Amino Transferase (AST) 12 U/L (15-37) L Alanine Aminotransferase (ALT) 9 U/L (14-59) L Alkaline Phosphatase 79 U/L (46-116) Total Protein 5.8 g/dL (6.4-8.2) L Albumin 2.7 g/dL (3.4-5.0) L Albumin/Globulin Ratio 0.9 (1.0-1.7) L Valproic Acid Level 40 mcg/mL (50-100) L Valproic Acid Last Dose Date 08/02/21 Valproic Acid Last Dose Time 2100 Current Medications: Meds: Laboratory Tests Test 08/03/21 06:20 White Blood Count 7.2 x10^3/uL Red Blood Count 4.18 x10^6/uL Hemoglobin 12.7 g/dL Hematocrit 38.7 % Mean Corpuscular Volume 93 fL Mean Corpuscular Hemoglobin 30 pg Mean Corpuscular Hemoglobin Concent 33 g/dL Red Cell Distribution Width 15.0 % Platelet Count 272 x10^3/uL Neutrophils (%) (Auto) 58 % Lymphocytes (%) (Auto) 28 % Monocytes (%) (Auto) 7 % Eosinophils (%) (Auto) 7 % Basophils (%) (Auto) 0 % Neutrophils # (Auto) 4.1 x10^3uL Lymphocytes # (Auto) 2.0 x10^3/uL Monocytes # (Auto) 0.5 x10^3/uL Eosinophils # (Auto) 0.5 x10^3/uL Basophils # (Auto) 0.0 x10^3/uL Sodium Level 136 mmol/L Potassium Level 4.2 mmol/L Chloride Level 100 mmol/L Carbon Dioxide Level 25 mmol/L Anion Gap 11 Blood Urea Nitrogen 15 mg/dL Creatinine 0.7 mg/dL Estimated GFR (Cockcroft-Gault) 80.7 BUN/Creatinine Ratio 21 Glucose Level 125 mg/dL Calcium Level 9.4 mg/dL Total Bilirubin 0.3 mg/dL Aspartate Amino Transf (AST/SGOT) 12 U/L Alanine Aminotransferase (ALT/SGPT) 9 U/L Alkaline Phosphatase 79 U/L Total Protein 5.8 g/dL Albumin 2.7 g/dL Albumin/Globulin Ratio 0.9 Valproic Acid (Depakene) Level 40 mcg/mL Valproic Acid Last Dose Date 08/02/21 Valproic Acid Last Dose Time 2100 Current Medications Medications (Trade) Dose Ordered Sig/Dawit Route PRN Reason Start Time Stop Time Status Last Admin Dose Admin Acetaminophen (Tylenol) 650 mg PRN Q6HRS PRN PO MILD PAIN / TEMP > 100.3'F 07/29/21 16:15 Multi-Ingredient Ointment (Analgesic [place]) 1 paulo PRN QID PRN TP MUSCLE PAIN 07/29/21 16:15 Al Hydroxide/Mg Hydroxide (Mylanta Plus Xs) 15 ml PRN AFTMEALHC PRN PO DYSPEPSIA 07/29/21 16:15 Magnesium Hydroxide (Milk Of Magnesia) 2,400 mg PRN QHS PRN PO CONSTIPATION 07/29/21 16:15 Aripiprazole (Abilify) 15 mg DAILY PO 07/30/21 09:00 08/03/21 18:42 DC 08/03/21 08:43 Nystatin (Nystop) 1 paulo PRN BID PRN TP RASH 07/29/21 16:15 08/03/21 10:30 Alprazolam (Xanax) 1 mg HS PO 07/29/21 21:00 08/03/21 20:06 Zinc Acetate/ Diphenhydramine (Benadryl Topical) 1 paulo PRN TID PRN TP ITCHY SKIN 07/29/21 16:30 Vitamin D (Vitamin D3) 50,000 unit WEEKLY PO 08/02/21 09:00 08/02/21 08:52 Multivitamins/ Calcium (Thera-M Plus) 1 tab DAILY PO 07/30/21 09:00 08/03/21 08:43 Olanzapine (ZyPREXA ZYDIS) 2.5 mg PRN Q2HR PRN PO PSYCHOSIS 07/30/21 11:15 Trazodone HCl (Desyrel) 50 mg PRN QHS PRN PO INSOMNIA, MAY REPEAT X1 07/30/21 11:15 08/01/21 12:48 DC 07/30/21 20:41 Divalproex Sodium (Depakote Er) 500 mg QHS PO 07/31/21 21:00 08/03/21 18:58 DC 08/02/21 20:01 Levofloxacin (Levaquin) 250 mg DAILY06 PO 08/02/21 06:00 08/06/21 23:00 08/03/21 05:26 Lactobacillus Rhamnosus (Culturelle) 1 cap BID PO 08/03/21 09:00 08/03/21 20:06 Risperidone (RisperDAL) 0.5 mg QHS PO 08/03/21 21:00 08/03/21 20:06 Divalproex Sodium (Depakote Er) 250 mg HS PO 08/03/21 21:00 08/03/21 20:06 Divalproex Sodium (Depakote Er) 500 mg HS PO 08/03/21 21:00 08/03/21 20:06 Current Medications Medications (Trade) Dose Ordered Sig/Dawit Route PRN Reason Start Time Stop Time Status Last Admin Dose Admin Lactobacillus Rhamnosus (Culturelle) 1 cap BID PO 08/03/21 09:00 08/03/21 20:06 Risperidone (RisperDAL) 0.5 mg QHS PO 08/03/21 21:00 08/03/21 20:06 Divalproex Sodium (Depakote Er) 250 mg HS PO 08/03/21 21:00 08/03/21 20:06 Divalproex Sodium (Depakote Er) 500 mg HS PO 08/03/21 21:00 08/03/21 20:06 I have reviewed the current psychotropics carefully including drug interactions. Risk benefit ratio favors no change other than as noted in my dictated progress note. Diagnosis: Problems: (1) Schizoaffective disorder, bipolar type (2) Impulse control disorder, unspecified (3) Mild cognitive impairment (4) Anxiety disorder, unspecified (5) Schizophrenia, paranoid, chronic with acute exacerbation (6) Bipolar disorder, current episode mixed, severe, with psychotic features PATRIC DAVIS MD Aug 03, 2021 21:49
--- NOTE | 2021-08-03 22:42 | NUR ---
Patient was in bed asleep when this nurse entered her room to give her HS medications. Patient sat up to take medications and then laid down. When checked a bit later she was asleep. Patient took medications whole.
[2021-08-04] MEDS: levoFLOXacin 250 MG TABLET PO SCH (05:57)
[2021-08-04 06:10] VITALS: BP 148/74
--- NOTE | 2021-08-04 08:32 | PDOC ---
Exam Note: Florencio Note: This note is a late entry for 08/02/2021 covers elements not covered in my initial note. Subjective: The patient was seen individually on 08/02/2021, discussed and reviewed the chart with Yesy SIMON. The patient slept 8 hours previous night. She does have UTI and on antibiotics. She seems to have speech problems but no behavioral dyscontrol. I met with her in her room. Review of Systems: Hard of hearing. No CV, , pulmonary, eye system symptoms on review. Mental Status Exam: The patient is oriented to herself and situation. Speech she continues to have some articulation problems, has been paranoid intermittently per nursing staff. Abstraction fair. Computation impaired. Aman guage function intact. Mood and affect remains somewhat withdrawn. No suicidal or homicidal ideation. Laboratory Data: Reviewed. Impression: Schizoaffective disorder, bipolar type, with psychotic features. Anxiety disorder unspecified. Impulse control disorder unspecified. Plan: We are adjusting her Depakote, labs and valproic acid level to be checked on 08/03. Reviewed drug interactions, risk-benefit ratio. We will adjust further as clinically indicated. Assessment: Vital Signs/I&O: Vital Signs Date Time Temp Pulse Resp B/P (MAP) Pulse Ox O2 Delivery O2 Flow Rate FiO2 08/04/21 06:10 97.6 56 18 148/74 (98) 96 Room Air I & O 08/03/21 08/03/21 08/04/21 15:00 23:00 07:00 Intake Total 600 ml 600 ml Balance 600 ml 600 ml Current Medications: Meds: Current Medications Medications (Trade) Dose Ordered Sig/Dawit Route PRN Reason Start Time Stop Time Status Last Admin Dose Admin Lactobacillus Rhamnosus (Culturelle) 1 cap BID PO 08/03/21 09:00 08/03/21 20:06 Risperidone (RisperDAL) 0.5 mg QHS PO 08/03/21 21:00 08/03/21 20:06 Divalproex Sodium (Depakote Er) 250 mg HS PO 08/03/21 21:00 08/03/21 20:06 Divalproex Sodium (Depakote Er) 500 mg HS PO 08/03/21 21:00 08/03/21 20:06 I have reviewed the current psychotropics carefully including drug interactions. Risk benefit ratio favors no change other than as noted in my dictated progress note. Diagnosis: Problems: (1) Schizoaffective disorder, bipolar type (2) Impulse control disorder, unspecified (3) Mild cognitive impairment (4) Anxiety disorder, unspecified (5) Schizophrenia, paranoid, chronic with acute exacerbation (6) Bipolar disorder, current episode mixed, severe, with psychotic features PATRIC DAVIS MD Aug 04, 2021 08:32
[2021-08-04] MEDS: LACTOBACILLUS RHAMNOSUS GG 1 CAPSULE. PO SCH ×2 (08:44→19:52)
[2021-08-04] MEDS: MULTIVITAMIN with MINERAL TABLET. PO SCH (08:44)
--- NOTE | 2021-08-04 08:47 | PDOC ---
Exam Note: Florencio Note: This note is a late entry for 08/03/2021 covers elements not covered in my initial note. Subjective: The patient was seen individually on 08/03/2021, discussed and reviewed the chart with Kira SIMON. The patient slept 4-3/4 hours previous night. I met with her in her room at some length in the evening. I have reviewed an email from the patients daughter reflecting that family feels the Abilify currently 15 mg a day has been relatively ineffective recently. She has been on it about 6 to 8 months and this was helpful for her psychotic symptoms initially but not now. She is a little confused, knows her first name, does not know her date of or the month and the year though she knew she was in the hospital. She has had some intermittent psychotic symptoms observed by nursing staff. Review of Systems: Difficulty with speech. Hard of hearing. No CV, , pulmonary, eye system symptoms on review. She is still on Levaquin for UTI. Mental Status Exam: The patient is alert and oriented to herself and situation. Speech difficult to understand because of her dysarthria. Abstraction fair. Computation impaired. Language function intact, somewhat distractible, anxious, suspicious. No suicidal or homicidal ideation. Laboratory Data: Reviewed. Impression: Schizoaffective disorder, bipolar type, with psychotic features. Anxiety disorder unspecified. Impulse control disorder unspecified. Plan: We will continue current psychotropics mentioned in my initial note. Reviewed drug interactions, risk-benefit ratio. Patients valproic acid level is 40 subtherapeutic on Depakote ER 500 mg h.s. We will increase to 750 mg h.s. Check CBC, CMP, valproic acid level in 3 days. Also we will change the Abilify to Risperdal 0.5 mg h.s. and increase gradually as tolerated for her psychotic symptoms. Assessment: Vital Signs/I&O: Vital Signs Date Time Temp Pulse Resp B/P (MAP) Pulse Ox O2 Delivery O2 Flow Rate FiO2 08/04/21 06:10 97.6 56 18 148/74 (98) 96 Room Air I & O 08/03/21 08/03/21 08/04/21 15:00 23:00 07:00 Intake Total 600 ml 600 ml Balance 600 ml 600 ml Current Medications: Meds: Current Medications Medications (Trade) Dose Ordered Sig/Dawit Route PRN Reason Start Time Stop Time Status Last Admin Dose Admin Lactobacillus Rhamnosus (Culturelle) 1 cap BID PO 08/03/21 09:00 08/03/21 20:06 Risperidone (RisperDAL) 0.5 mg QHS PO 08/03/21 21:00 08/03/21 20:06 Divalproex Sodium (Depakote Er) 250 mg HS PO 08/03/21 21:00 08/03/21 20:06 Divalproex Sodium (Depakote Er) 500 mg HS PO 08/03/21 21:00 08/03/21 20:06 I have reviewed the current psychotropics carefully including drug interactions. Risk benefit ratio favors no change other than as noted in my dictated progress note. Diagnosis: Problems: (1) Schizoaffective disorder, bipolar type (2) Impulse control disorder, unspecified (3) Mild cognitive impairment (4) Anxiety disorder, unspecified (5) Schizophrenia, paranoid, chronic with acute exacerbation (6) Bipolar disorder, current episode mixed, severe, with psychotic features PATRIC DAVIS MD Aug 04, 2021 08:47
--- NOTE | 2021-08-04 15:07 | NUR ---
Patient remained in her room most of the morning sitting in her wheelchair. She was compliant and took her whole medication. . She is A/O X3, unable to report , or situation. She's pleasant and cooperative, but confused. Pt was encouraged She reported being and having a different last name, this nurse was unable to understand the name voiced. Patient denies pain/discomfort, no acute distress noted. She is calm and was encouraged to socialize with peers, but she did not leave her room. She ambulates with walker, can be unsteady at times. She is currently sitting in chair in her room. Will continue to monitor for safety.
[2021-08-04 16:19] VITALS: BP 120/44
[2021-08-04] MEDS: DIVALPROEX ER 500 MG TAB.ER.24H PO SCH (19:52)
[2021-08-04] MEDS: ALPRAZolam 0.5 MG TABLET PO SCH (19:52)
[2021-08-04] MEDS: DIVALPROEX ER 250 MG TAB.ER.24H. PO SCH (19:52)
[2021-08-04] MEDS: risperiDONE 0.5 MG TABLET. PO SCH (19:52)
--- NOTE | 2021-08-04 22:01 | PDOC ---
Exam Note: Florencio Note: Please also refer to the separate dictated note~for this date of service dictated separately.~Patient seen individually. Discussed the patient with Nursing staff reviewed the chart.~Reviewed interim history and current functioning. Reviewed vital signs,~Labs/ Radiology~and current medications noted below. Continue current treatment with the changes noted in the dictated addendum note Assessment: Vital Signs/I&O: Vital Signs Date Time Temp Pulse Resp B/P (MAP) Pulse Ox O2 Delivery O2 Flow Rate FiO2 08/04/21 16:19 99.0 43 14 120/44 (69) 97 08/04/21 06:10 Room Air I & O 08/03/21 08/03/21 08/04/21 15:00 23:00 07:00 Intake Total 600 ml 600 ml Balance 600 ml 600 ml Current Medications: Meds: Current Medications Medications (Trade) Dose Ordered Sig/Dawit Route PRN Reason Start Time Stop Time Status Last Admin Dose Admin Acetaminophen (Tylenol) 650 mg PRN Q6HRS PRN PO MILD PAIN / TEMP > 100.3'F 07/29/21 16:15 Multi-Ingredient Ointment (Analgesic [place]) 1 paulo PRN QID PRN TP MUSCLE PAIN 07/29/21 16:15 Al Hydroxide/Mg Hydroxide (Mylanta Plus Xs) 15 ml PRN AFTMEALHC PRN PO DYSPEPSIA 07/29/21 16:15 Magnesium Hydroxide (Milk Of Magnesia) 2,400 mg PRN QHS PRN PO CONSTIPATION 07/29/21 16:15 Aripiprazole (Abilify) 15 mg DAILY PO 07/30/21 09:00 08/03/21 18:42 DC 08/03/21 08:43 Nystatin (Nystop) 1 paulo PRN BID PRN TP RASH 07/29/21 16:15 08/03/21 10:30 Alprazolam (Xanax) 1 mg HS PO 07/29/21 21:00 08/04/21 19:52 Zinc Acetate/ Diphenhydramine (Benadryl Topical) 1 paulo PRN TID PRN TP ITCHY SKIN 07/29/21 16:30 Vitamin D (Vitamin D3) 50,000 unit WEEKLY PO 08/02/21 09:00 08/02/21 08:52 Multivitamins/ Calcium (Thera-M Plus) 1 tab DAILY PO 07/30/21 09:00 08/04/21 08:44 Olanzapine (ZyPREXA ZYDIS) 2.5 mg PRN Q2HR PRN PO PSYCHOSIS 07/30/21 11:15 Trazodone HCl (Desyrel) 50 mg PRN QHS PRN PO INSOMNIA, MAY REPEAT X1 07/30/21 11:15 08/01/21 12:48 DC 07/30/21 20:41 Divalproex Sodium (Depakote Er) 500 mg QHS PO 07/31/21 21:00 08/03/21 18:58 DC 08/02/21 20:01 Levofloxacin (Levaquin) 250 mg DAILY06 PO 08/02/21 06:00 08/06/21 23:00 08/04/21 05:57 Lactobacillus Rhamnosus (Culturelle) 1 cap BID PO 08/03/21 09:00 08/04/21 19:52 Risperidone (RisperDAL) 0.5 mg QHS PO 08/03/21 21:00 08/04/21 19:52 Divalproex Sodium (Depakote Er) 250 mg HS PO 08/03/21 21:00 08/04/21 19:52 Divalproex Sodium (Depakote Er) 500 mg HS PO 08/03/21 21:00 08/04/21 19:52 I have reviewed the current psychotropics carefully including drug interactions. Risk benefit ratio favors no change other than as noted in my dictated progress note. Diagnosis: Problems: (1) Schizoaffective disorder, bipolar type (2) Impulse control disorder, unspecified (3) Mild cognitive impairment (4) Anxiety disorder, unspecified (5) Schizophrenia, paranoid, chronic with acute exacerbation (6) Bipolar disorder, current episode mixed, severe, with psychotic features PATRIC DAVIS MD Aug 04, 2021 22:01
--- NOTE | 2021-08-04 22:10 | NUR ---
Patient was in her room most of the night, she was cooperative and compliant with medications. Patient was sitting in the chair and then went to bed shortly after that. She has been calm and pleasant.
[2021-08-05] MEDS: levoFLOXacin 250 MG TABLET PO SCH (05:32)
[2021-08-05 06:05] VITALS: BP 138/72
[2021-08-05] MEDS: LACTOBACILLUS RHAMNOSUS GG 1 CAPSULE. PO SCH ×2 (08:51→20:14)
[2021-08-05] MEDS: MULTIVITAMIN with MINERAL TABLET. PO SCH (08:51)
--- NOTE | 2021-08-05 10:12 | PDOC ---
Exam Note: Florencio Note: This note is a late entry for 08/04/2021 covers elements not covered in my initial note. Subjective: The patient was seen individually on 08/04/2021, discussed and reviewed the chart with Kira ISMON. The patient slept 5-1/4 hours previous night. I met with her in her room. The patient has been somewhat delusional, believed she has , in fact she is not. She knew the year, unable to tell me her date of and situation. She is on Levaquin for her UTI till 08/06. Review of Systems: Hard of hearing. No CV, , pulmonary, eye system symptoms on review. Mental Status Exam: The patient is alert and oriented to herself and situation. I met with her in her room. Speech difficult to understand due to her dysarthria. Abstraction fair. Computation impaired. Language function intact. Mood and affect quite paranoid but denied this when I specifically questioned her, anxious. No suicidal or homicidal ideation. Laboratory Data: Reviewed. Impression: Schizoaffective disorder, bipolar type, with psychotic features. Anxiety disorder unspecified. Impulse control disorder unspecified. Plan: We will continue current psychotropics mentioned in my initial note. Reviewed drug interactions, risk-benefit ratio. Adjust as clinically indicated. Assessment: Vital Signs/I&O: Vital Signs Date Time Temp Pulse Resp B/P (MAP) Pulse Ox O2 Delivery O2 Flow Rate FiO2 08/05/21 06:05 97.8 38 16 138/72 (94) 98 08/04/21 06:10 Room Air I & O 08/04/21 08/04/21 08/05/21 15:00 23:00 07:00 Intake Total 480 ml 700 ml Balance 480 ml 700 ml Current Medications: I have reviewed the current psychotropics carefully including drug interactions. Risk benefit ratio favors no change other than as noted in my dictated progress note. Diagnosis: Problems: (1) Schizophrenia, chronic with acute exacerbation (2) Schizoaffective disorder, bipolar type (3) Impulse control disorder, unspecified (4) Mild cognitive impairment (5) Anxiety disorder, unspecified (6) Schizophrenia, paranoid, chronic with acute exacerbation (7) Bipolar disorder, current episode mixed, severe, with psychotic features PATRIC DAVIS MD Aug 05, 2021 10:12
--- NOTE | 2021-08-05 13:05 | NUR ---
HAY completed a Zoom meeting with pt so that she could see her family. Pt smiled and was able to note her children; however, was adamant that her Isidro was not present, although he was sitting in front of the camera. She said her Isidro was a ysabel named Ramos. But could not tell SW who Ramos was. Pt smiled and told her daughters that she was taking her medications and doing what is asked of her, "I'm ready to come home". SW noted that she would be moved later today if not tomorrow and would get to start attending groups. Pt dtr will be by priscilla around 2030 to drop off a few items for pt. HAY will notify staff. HAY will call pt family tomorrow for treatment team.
[2021-08-05 16:11] VITALS: BP 135/54
--- NOTE | 2021-08-05 18:49 | NUR ---
Patient was compliant with medications taken whole. She is A/O X3, unable to report , or situation. Patient denies pain/discomfort. She is very garbled when she speaks making it hard to understand her. She stays in her room sitting most of the shift. Will continue to monitor for safety.
[2021-08-05] MEDS: DIVALPROEX ER 250 MG TAB.ER.24H. PO SCH (20:14)
[2021-08-05] MEDS: risperiDONE 0.5 MG TABLET. PO SCH (20:14)
[2021-08-05] MEDS: DIVALPROEX ER 500 MG TAB.ER.24H PO SCH (20:14)
[2021-08-05] MEDS: ALPRAZolam 0.5 MG TABLET PO SCH (20:15)
--- NOTE | 2021-08-05 21:30 | NUR ---
At change of shift, Pt was calm and pleasant sitting in chair in hallway with walker next to her. Pt was pleasant and cooperative during assessment. Pt ate HS snack independently. Pt was interactive and appropriate with staff during shower. Pt was compliant with her HS medications taken whole. Pt ambulated with walker to new room and sat in chair till bedtime.
--- NOTE | 2021-08-05 21:58 | PDOC ---
Exam Note: Florencio Note: Please also refer to the separate dictated note~for this date of service dictated separately.~Patient seen individually. Discussed the patient with Nursing staff reviewed the chart.~Reviewed interim history and current functioning. Reviewed vital signs,~Labs/ Radiology~and current medications noted below. Continue current treatment with the changes noted in the dictated addendum note Assessment: Vital Signs/I&O: Vital Signs Date Time Temp Pulse Resp B/P (MAP) Pulse Ox O2 Delivery O2 Flow Rate FiO2 08/05/21 16:11 98.4 48 19 135/54 (81) 98 08/04/21 06:10 Room Air I & O 08/04/21 08/04/21 08/05/21 15:00 23:00 07:00 Intake Total 480 ml 700 ml Balance 480 ml 700 ml Labs: Laboratory Tests Test 08/05/21 07:50 SARS-CoV-2 (PCR) Not detected (NOT DETECTD) Current Medications: Meds: Laboratory Tests Test 08/05/21 07:50 Coronavirus (COVID-19)(PCR) Not detected Current Medications Medications (Trade) Dose Ordered Sig/Dawit Route PRN Reason Start Time Stop Time Status Last Admin Dose Admin Acetaminophen (Tylenol) 650 mg PRN Q6HRS PRN PO MILD PAIN / TEMP > 100.3'F 07/29/21 16:15 08/05/21 03:07 Multi-Ingredient Ointment (Analgesic [place]) 1 paulo PRN QID PRN TP MUSCLE PAIN 07/29/21 16:15 Al Hydroxide/Mg Hydroxide (Mylanta Plus Xs) 15 ml PRN AFTMEALHC PRN PO DYSPEPSIA 07/29/21 16:15 Magnesium Hydroxide (Milk Of Magnesia) 2,400 mg PRN QHS PRN PO CONSTIPATION 07/29/21 16:15 Aripiprazole (Abilify) 15 mg DAILY PO 07/30/21 09:00 08/03/21 18:42 DC 08/03/21 08:43 Nystatin (Nystop) 1 paulo PRN BID PRN TP RASH 07/29/21 16:15 08/03/21 10:30 Alprazolam (Xanax) 1 mg HS PO 07/29/21 21:00 08/05/21 20:15 Zinc Acetate/ Diphenhydramine (Benadryl Topical) 1 paulo PRN TID PRN TP ITCHY SKIN 07/29/21 16:30 Vitamin D (Vitamin D3) 50,000 unit WEEKLY PO 08/02/21 09:00 08/02/21 08:52 Multivitamins/ Calcium (Thera-M Plus) 1 tab DAILY PO 07/30/21 09:00 08/05/21 08:51 Olanzapine (ZyPREXA ZYDIS) 2.5 mg PRN Q2HR PRN PO PSYCHOSIS 07/30/21 11:15 Trazodone HCl (Desyrel) 50 mg PRN QHS PRN PO INSOMNIA, MAY REPEAT X1 07/30/21 11:15 08/01/21 12:48 DC 07/30/21 20:41 Divalproex Sodium (Depakote Er) 500 mg QHS PO 07/31/21 21:00 08/03/21 18:58 DC 08/02/21 20:01 Levofloxacin (Levaquin) 250 mg DAILY06 PO 08/02/21 06:00 08/06/21 23:00 08/05/21 05:32 Lactobacillus Rhamnosus (Culturelle) 1 cap BID PO 08/03/21 09:00 08/05/21 20:14 Risperidone (RisperDAL) 0.5 mg QHS PO 08/03/21 21:00 08/05/21 20:14 Divalproex Sodium (Depakote Er) 250 mg HS PO 08/03/21 21:00 08/05/21 20:14 Divalproex Sodium (Depakote Er) 500 mg HS PO 08/03/21 21:00 08/05/21 20:14 I have reviewed the current psychotropics carefully including drug interactions. Risk benefit ratio favors no change other than as noted in my dictated progress note. Diagnosis: Problems: (1) Schizoaffective disorder, bipolar type (2) Impulse control disorder, unspecified (3) Mild cognitive impairment (4) Anxiety disorder, unspecified (5) Schizophrenia, paranoid, chronic with acute exacerbation (6) Bipolar disorder, current episode mixed, severe, with psychotic features PATRIC DAVIS MD Aug 05, 2021 21:58
[2021-08-06 06:23] VITALS: BP 95/56
[2021-08-06 06:25] VITALS: BP 136/75
[2021-08-06] MEDS: levoFLOXacin 250 MG TABLET PO SCH (06:28)
[2021-08-06 07:19] LABS: BASO % 1 % (0-3); EOS # 0.3 x10^3/uL (0.0-0.7); EOS % 6 % (0-3); HEMATOCRIT 39.9 % (36.0-47.0); HEMOGLOBIN 13.2 g/dL (12.0-15.5); LYMPH # 1.7 x10^3/uL (1.0-4.8); LYMPH % 29 % (24-48); MEAN CORPUSCULAR HEMOGLOBIN 30 pg (25-35); MEAN CORPUSCULAR HGB CONC 33 g/dL (31-37); MEAN CORPUSCULAR VOLUME 92 fL (79-100); MONO # 0.4 x10^3/uL (0.0-1.1); MONO % 7 % (0-9); NEUT # 3.4 x10^3uL (1.8-7.7); NEUT % 58 % (31-73); PLATELET COUNT 266 x10^3/uL (140-400); RED BLOOD COUNT 4.36 x10^6/uL (3.50-5.40); RED CELL DISTRIBUTION WIDTH 14.8 % (11.5-14.5); WHITE BLOOD COUNT 5.9 x10^3/uL (4.0-11.0)
[2021-08-06 07:40] LABS: ALBUMIN 2.9 g/dL (3.4-5.0); ALBUMIN/GLOBULIN RATIO 0.9 (1.0-1.7); ALK PHOS 79 U/L (46-116); ALT (SGPT) 12 U/L (14-59); ANION GAP 6 (6-14); AST (SGOT) 13 U/L (15-37); BLOOD UREA NITROGEN 15 mg/dL (7-20); BUN/CREATININE RATIO 21 (6-20); CALCIUM 9.6 mg/dL (8.5-10.1); CARBON DIOXIDE 29 mmol/L (21-32); CHLORIDE 95 mmol/L (98-107); CREATININE 0.7 mg/dL (0.6-1.0); GFR 80.7; GLUCOSE 100 mg/dL (70-99); POTASSIUM 4.4 mmol/L (3.5-5.1); SODIUM 130 mmol/L (136-145); TOTAL BILIRUBIN 0.2 mg/dL (0.2-1.0); TOTAL PROTEIN 6.2 g/dL (6.4-8.2)
[2021-08-06 07:44] LABS: VAL ACID 81 mcg/mL (50-100)
[2021-08-06] MEDS: LACTOBACILLUS RHAMNOSUS GG 1 CAPSULE. PO SCH ×2 (08:14→21:17)
[2021-08-06] MEDS: MULTIVITAMIN with MINERAL TABLET. PO SCH (08:14)
--- NOTE | 2021-08-06 09:16 | PDOC ---
Exam Note: Florencio Note: This note is a late entry for 08/05/2021 covers elements not covered in my initial note. Subjective: The patient was seen individually on 08/05/2021, discussed and reviewed the chart with Vlad SIMON. The patient slept 6-1/2 hours previous night. I met with her in her room. She has been isolative, withdrawn, somewhat delusional, but less so than before. Review of Systems: Ambulation impaired, with walker. No CV, , pulmonary, eye system symptoms on review. Mental Status Exam: The patient is alert and oriented to herself and situation. Speech difficult to understand due to her dysarthria. Abstraction fair. Computation impaired. Language function intact. Mood and affect somewhat paranoid, dysphoric, anxious. No suicidal or homicidal ideation. She is somewhat distractible. Laboratory Data: Reviewed. Impression: Schizoaffective disorder, bipolar type, with psychotic features. Anxiety disorder unspecified. Impulse control disorder unspecified. Plan: We will continue current psychotropics mentioned in my initial note. Reviewed drug interactions, risk-benefit ratio. Adjust as clinically indicated. Continue Risperdal, Xanax along with Zyprexa p.r.n., Depakote ER 750 mg h.s. We will repeat labs level to reach therapeutic level. Assessment: Vital Signs/I&O: Vital Signs Date Time Temp Pulse Resp B/P (MAP) Pulse Ox O2 Delivery O2 Flow Rate FiO2 08/06/21 06:25 97.4 48 18 136/75 (95) 97 08/04/21 06:10 Room Air I & O 08/05/21 08/05/21 08/06/21 14:59 22:59 06:59 Intake Total 440 ml 120 ml Balance 440 ml 120 ml Labs: Laboratory Tests Test 08/06/21 06:55 White Blood Count 5.9 x10^3/uL (4.0-11.0) Red Blood Count 4.36 x10^6/uL (3.50-5.40) Hemoglobin 13.2 g/dL (12.0-15.5) Hematocrit 39.9 % (36.0-47.0) Mean Corpuscular Volume 92 fL (79-100) Mean Corpuscular Hemoglobin 30 pg (25-35) Mean Corpuscular Hemoglobin Concent 33 g/dL (31-37) Red Cell Distribution Width 14.8 % (11.5-14.5) H Platelet Count 266 x10^3/uL (140-400) Neutrophils (%) (Auto) 58 % (31-73) Lymphocytes (%) (Auto) 29 % (24-48) Monocytes (%) (Auto) 7 % (0-9) Eosinophils (%) (Auto) 6 % (0-3) H Basophils (%) (Auto) 1 % (0-3) Neutrophils # (Auto) 3.4 x10^3uL (1.8-7.7) Lymphocytes # (Auto) 1.7 x10^3/uL (1.0-4.8) Monocytes # (Auto) 0.4 x10^3/uL (0.0-1.1) Eosinophils # (Auto) 0.3 x10^3/uL (0.0-0.7) Basophils # (Auto) 0.0 x10^3/uL (0.0-0.2) Sodium Level 130 mmol/L (136-145) L Potassium Level 4.4 mmol/L (3.5-5.1) Chloride Level 95 mmol/L (98-107) L Carbon Dioxide Level 29 mmol/L (21-32) Anion Gap 6 (6-14) Blood Urea Nitrogen 15 mg/dL (7-20) Creatinine 0.7 mg/dL (0.6-1.0) Estimated GFR (Cockcroft-Gault) 80.7 BUN/Creatinine Ratio 21 (6-20) H Glucose Level 100 mg/dL (70-99) H Calcium Level 9.6 mg/dL (8.5-10.1) Total Bilirubin 0.2 mg/dL (0.2-1.0) Aspartate Amino Transferase (AST) 13 U/L (15-37) L Alanine Aminotransferase (ALT) 12 U/L (14-59) L Alkaline Phosphatase 79 U/L (46-116) Ammonia < 10 mcmol/L (11-34) L Total Protein 6.2 g/dL (6.4-8.2) L Albumin 2.9 g/dL (3.4-5.0) L Albumin/Globulin Ratio 0.9 (1.0-1.7) L Valproic Acid Level 81 mcg/mL (50-100) Valproic Acid Last Dose Date 08/05/21 Valproic Acid Last Dose Time 2100 Current Medications: I have reviewed the current psychotropics carefully including drug interactions. Risk benefit ratio favors no change other than as noted in my dictated progress note. Diagnosis: Problems: (1) Schizoaffective disorder, bipolar type (2) Impulse control disorder, unspecified (3) Mild cognitive impairment (4) Anxiety disorder, unspecified (5) Schizophrenia, paranoid, chronic with acute exacerbation (6) Bipolar disorder, current episode mixed, severe, with psychotic features PATRIC DAVIS MD Aug 06, 2021 09:16
--- NOTE | 2021-08-06 09:49 | NUR ---
WEEKLY ACTIVITY THERAPY NOTE Date of Admission:07/29/21 Date of AT Assessment: 07/30 Precipitating behaviors that initiated intake and admission: paranoia, packing bags to leave home, delusional, thinks someone is trying to steal her stuff, hiding knives, writing her name all over her clothes with a sharpie, insomnia, periods of aggression Goal aimed: increase socialization and engagement Initial Goal: Pt will participate in at least three Activity Therapy sessions per week Weekly progress towards goal: did not achieve, on admission lopez Group participation level: declined 1:1 Tuesday afternoon, 1 mod 1:1 Weekly highlights: accepted coloring pages from [employer] Tuesday Behaviors observed: declined 1:1 Tuesday afternoon Plan: no change to goal, move to group therapy side 08/05 Beneficial adaptations:
--- NOTE | 2021-08-06 14:15 | NUR ---
Wound Care Wound Type/Assessment: patient seen per wound care consult. see wound assessment. patient had previously had breakdown to the buttocks and right groin- this appears healed at this time. patient has a scab to the left abdomen. the patient has dry crusty red non granulated small round open areas to the left and right hip, these areas were cleaned, measured, pictured and a dressing was applied at this time. Treatment Recommendations/Plan: Recommendations of Cleansing the area then apply Betadine to the areas then apply a foam dressing, change every 3-4 days. Education provided: Educated patient about the POC with her wounds Offloading surface/device: N/A Recommended Referrals/Tests: N/A Discharge Recommendations for dressings: Wound care will continue to f/u. Notified ALFRED Gomez about the POC
--- NOTE | 2021-08-06 14:55 | NUR ---
Treatment team updates: Pt is eating between 75-100% of meals and sleeping on average 5.5 hours. Pt mostly stays in her room and withdrawn from peers but interactive with staff. Pt is medication compliant and today is the last day for antibiotic re: her UTI. Pt dtrs Chinmay were present during treatment team via conference call. Pt dtrs are questioned if Dementia is part of the diagnosis. It is noted that with pt psychosis it is hard to make the dementia determination; once the psychosis clears up a bit then Dementia can be evaluated. Pt dtrs were also made aware of the fact that pt may need a pacemaker; she will be placed on the list for the hospitalist to see and determine if a consult to cardiology will need to be made. The family is questioning if placement is needed and SW will plan to further discuss this with the family tomorrow around 1300.
--- NOTE | 2021-08-06 15:51 | TX PLAN ---
Interdisciplinary Tx Plan Admission Information Jul 29, 2021 at 15:45 Legal Status (on Admission): Voluntary DPOA/Guardian Name: Michelle Scruggs Contact Other Contact Verified Code Status: Full Code Allergies: Coded Allergies: haloperidol (Verified Allergy, Intermediate, 07/29/21) Diagnoses Primary Diagnosis: Schiizophrenia with acute exacerbation Reasons for Admission: Delusions, Suspicious/paranoid, Poor impulse control, Other Problem in Patient's Words: Not consistently taking her medications and had a few medication changes that may not be appropriate for her at this time. Additional Admission Comments: According to the intake, pt took a sharpie and wrote names all over her clothing, hiding knives , packing various items around the house, delusional and thinks someone is stealing her stuff. Problems Active Problems: withdrawn delusional Inactive Problems: medication compliant Pt Strengths/Limitations Ability for [place]: Poor Cognitive Functioning/Ability: Fair Communication Skills/Ability: Fair Financial Resources: Fair Insight/Judgement: Poor Intellectual Ability: Fair Physical Health: Fair Social Skills: Fair Stability in Family: Excellent Stability in School/Work: Poor Verbal Skills: Fair Discharge Criteria Discharge Criteria: Adequate arrangements @DC, Improved behavior, Improved mood/thought Preliminary Discharge Plan Preliminary DC Plan: Current Living Arrange., Other Special Precautions Fall Risk: Low Initial D/C Plan Pt may discharge home. Identified Discharge Needs: considering possible referral for placement Currently Utilized Resources Currently Utilized Resources/P: PCP Identified Problems/Hx/Goals Objectives/Short-Term Goals Short Term Goals: Dec. Hallucination/Delus, Dec. Outbursts, Medication Stabilization, Prevent Deterioration, Promote Coping Skill Short Term Goals in Patient's: n/a Interventions/Frequency Staff Interventions/Frequency&: Psychiatrist to assess pt at least 3x per week for medication management. Social Work to assess pt at least 2x per week to identify barriers to care and discharge planning goals Nursing to assess behavior modification, medication effects and complete 15 minute checks daily. Encourage participation in group activities (if applicable) or 1:1 engagement based off activity dept goals. 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 (-) Education: Pt did graduate from high school (12th grade). Community Follow-up PCP follow-up Treatment Plan Explained Patient/Metal Miner had this treatment plan explained to him/her as indicated by the signature below and has been given the opportunity to ask questions and make suggestions: Date: Patient/Metal Miner Signature: Patient/Metal Miner Decline: No (Family is very involved in pt care.) Status Update Update Pt is eating between 75-100% of meals and sleeping on average 5.5 hours. Pt asim carter stays in her room and withdrawn from peers but interactive with staff. Pt is medication compliant and today is the last day for antibiotic re: her UTI. Pt dtrs Chinmay were present during treatment team via conference call. Pt dtrs are questioned if Dementia is part of the diagnosis. It is noted that with pt psychosis it is hard to make the dementia determination; once the psychosis clears up a bit then Dementia can be evaluated. Pt dtrs were also made aware of the fact that pt may need a pacemaker; she will be placed on the list for the hospitalist to see and determine if a consult to cardiology will need to be made. The family is questioning if placement is needed and SW will plan to further discuss this with the family tomorrow around 1300. BARBARA FRANCIS Aug 06, 2021 15:51
[2021-08-06 16:34] VITALS: BP 162/88
--- NOTE | 2021-08-06 18:30 | NUR ---
Patient has been calm, disorganized, pleasantly confused, and withdrawn to her room throughout this shift. Will continue to monitor and report to oncoming shift.
[2021-08-06] MEDS: DIVALPROEX ER 500 MG TAB.ER.24H PO SCH (21:16)
[2021-08-06] MEDS: DIVALPROEX ER 250 MG TAB.ER.24H. PO SCH (21:16)
[2021-08-06] MEDS: risperiDONE 0.5 MG TABLET. PO SCH (21:17)
[2021-08-06] MEDS: ALPRAZolam 0.5 MG TABLET PO SCH (21:19)
--- NOTE | 2021-08-06 21:25 | PDOC ---
Exam Note: Florencio Note: Please also refer to the separate dictated note~for this date of service dictated separately.~Patient seen individually. Discussed the patient with Nursing staff reviewed the chart.~Reviewed interim history and current functioning. Reviewed vital signs,~Labs/ Radiology~and current medications noted below. Continue current treatment with the changes noted in the dictated addendum note Assessment: Vital Signs/I&O: Vital Signs Date Time Temp Pulse Resp B/P (MAP) Pulse Ox O2 Delivery O2 Flow Rate FiO2 08/06/21 16:34 98.1 75 18 162/88 (112) 95 08/04/21 06:10 Room Air I & O 08/05/21 08/05/21 08/06/21 15:00 23:00 07:00 Intake Total 440 ml 120 ml Balance 440 ml 120 ml Labs: Laboratory Tests Test 08/06/21 06:55 White Blood Count 5.9 x10^3/uL (4.0-11.0) Red Blood Count 4.36 x10^6/uL (3.50-5.40) Hemoglobin 13.2 g/dL (12.0-15.5) Hematocrit 39.9 % (36.0-47.0) Mean Corpuscular Volume 92 fL (79-100) Mean Corpuscular Hemoglobin 30 pg (25-35) Mean Corpuscular Hemoglobin Concent 33 g/dL (31-37) Red Cell Distribution Width 14.8 % (11.5-14.5) H Platelet Count 266 x10^3/uL (140-400) Neutrophils (%) (Auto) 58 % (31-73) Lymphocytes (%) (Auto) 29 % (24-48) Monocytes (%) (Auto) 7 % (0-9) Eosinophils (%) (Auto) 6 % (0-3) H Basophils (%) (Auto) 1 % (0-3) Neutrophils # (Auto) 3.4 x10^3uL (1.8-7.7) Lymphocytes # (Auto) 1.7 x10^3/uL (1.0-4.8) Monocytes # (Auto) 0.4 x10^3/uL (0.0-1.1) Eosinophils # (Auto) 0.3 x10^3/uL (0.0-0.7) Basophils # (Auto) 0.0 x10^3/uL (0.0-0.2) Sodium Level 130 mmol/L (136-145) L Potassium Level 4.4 mmol/L (3.5-5.1) Chloride Level 95 mmol/L (98-107) L Carbon Dioxide Level 29 mmol/L (21-32) Anion Gap 6 (6-14) Blood Urea Nitrogen 15 mg/dL (7-20) Creatinine 0.7 mg/dL (0.6-1.0) Estimated GFR (Cockcroft-Gault) 80.7 BUN/Creatinine Ratio 21 (6-20) H Glucose Level 100 mg/dL (70-99) H Calcium Level 9.6 mg/dL (8.5-10.1) Total Bilirubin 0.2 mg/dL (0.2-1.0) Aspartate Amino Transferase (AST) 13 U/L (15-37) L Alanine Aminotransferase (ALT) 12 U/L (14-59) L Alkaline Phosphatase 79 U/L (46-116) Ammonia < 10 mcmol/L (11-34) L Total Protein 6.2 g/dL (6.4-8.2) L Albumin 2.9 g/dL (3.4-5.0) L Albumin/Globulin Ratio 0.9 (1.0-1.7) L Valproic Acid Level 81 mcg/mL (50-100) Valproic Acid Last Dose Date 08/05/21 Valproic Acid Last Dose Time 2100 Current Medications: Meds: Laboratory Tests Test 08/06/21 06:55 White Blood Count 5.9 x10^3/uL Red Blood Count 4.36 x10^6/uL Hemoglobin 13.2 g/dL Hematocrit 39.9 % Mean Corpuscular Volume 92 fL Mean Corpuscular Hemoglobin 30 pg Mean Corpuscular Hemoglobin Concent 33 g/dL Red Cell Distribution Width 14.8 % Platelet Count 266 x10^3/uL Neutrophils (%) (Auto) 58 % Lymphocytes (%) (Auto) 29 % Monocytes (%) (Auto) 7 % Eosinophils (%) (Auto) 6 % Basophils (%) (Auto) 1 % Neutrophils # (Auto) 3.4 x10^3uL Lymphocytes # (Auto) 1.7 x10^3/uL Monocytes # (Auto) 0.4 x10^3/uL Eosinophils # (Auto) 0.3 x10^3/uL Basophils # (Auto) 0.0 x10^3/uL Sodium Level 130 mmol/L Potassium Level 4.4 mmol/L Chloride Level 95 mmol/L Carbon Dioxide Level 29 mmol/L Anion Gap 6 Blood Urea Nitrogen 15 mg/dL Creatinine 0.7 mg/dL Estimated GFR (Cockcroft-Gault) 80.7 BUN/Creatinine Ratio 21 Glucose Level 100 mg/dL Calcium Level 9.6 mg/dL Total Bilirubin 0.2 mg/dL Aspartate Amino Transf (AST/SGOT) 13 U/L Alanine Aminotransferase (ALT/SGPT) 12 U/L Alkaline Phosphatase 79 U/L Ammonia < 10 mcmol/L Total Protein 6.2 g/dL Albumin 2.9 g/dL Albumin/Globulin Ratio 0.9 Valproic Acid (Depakene) Level 81 mcg/mL Valproic Acid Last Dose Date 08/05/21 Valproic Acid Last Dose Time 2100 Current Medications Medications (Trade) Dose Ordered Sig/Dawit Route PRN Reason Start Time Stop Time Status Last Admin Dose Admin Acetaminophen (Tylenol) 650 mg PRN Q6HRS PRN PO MILD PAIN / TEMP > 100.3'F 07/29/21 16:15 08/05/21 03:07 Multi-Ingredient Ointment (Analgesic [place]) 1 paulo PRN QID PRN TP MUSCLE PAIN 07/29/21 16:15 Al Hydroxide/Mg Hydroxide (Mylanta Plus Xs) 15 ml PRN AFTMEALHC PRN PO DYSPEPSIA 07/29/21 16:15 Magnesium Hydroxide (Milk Of Magnesia) 2,400 mg PRN QHS PRN PO CONSTIPATION 07/29/21 16:15 Aripiprazole (Abilify) 15 mg DAILY PO 07/30/21 09:00 08/03/21 18:42 DC 08/03/21 08:43 Nystatin (Nystop) 1 paulo PRN BID PRN TP RASH 07/29/21 16:15 08/03/21 10:30 Alprazolam (Xanax) 1 mg HS PO 07/29/21 21:00 08/06/21 21:19 Zinc Acetate/ Diphenhydramine (Benadryl Topical) 1 paulo PRN TID PRN TP ITCHY SKIN 07/29/21 16:30 Vitamin D (Vitamin D3) 50,000 unit WEEKLY PO 08/02/21 09:00 08/02/21 08:52 Multivitamins/ Calcium (Thera-M Plus) 1 tab DAILY PO 07/30/21 09:00 08/06/21 08:14 Olanzapine (ZyPREXA ZYDIS) 2.5 mg PRN Q2HR PRN PO PSYCHOSIS 07/30/21 11:15 Trazodone HCl (Desyrel) 50 mg PRN QHS PRN PO INSOMNIA, MAY REPEAT X1 07/30/21 11:15 08/01/21 12:48 DC 07/30/21 20:41 Divalproex Sodium (Depakote Er) 500 mg QHS PO 07/31/21 21:00 08/03/21 18:58 DC 08/02/21 20:01 Levofloxacin (Levaquin) 250 mg DAILY06 PO 08/02/21 06:00 08/06/21 23:00 08/06/21 06:28 Lactobacillus Rhamnosus (Culturelle) 1 cap BID PO 08/03/21 09:00 08/06/21 21:17 Risperidone (RisperDAL) 0.5 mg QHS PO 08/03/21 21:00 08/06/21 21:17 Divalproex Sodium (Depakote Er) 250 mg HS PO 08/03/21 21:00 08/06/21 21:16 Divalproex Sodium (Depakote Er) 500 mg HS PO 08/03/21 21:00 08/06/21 21:16 I have reviewed the current psychotropics carefully including drug interactions. Risk benefit ratio favors no change other than as noted in my dictated progress note. Diagnosis: Problems: (1) Schizoaffective disorder, bipolar type (2) Impulse control disorder, unspecified (3) Mild cognitive impairment (4) Anxiety disorder, unspecified (5) Schizophrenia, paranoid, chronic with acute exacerbation (6) Bipolar disorder, current episode mixed, severe, with psychotic features PATRIC DAVIS MD Aug 06, 2021 21:25
--- NOTE | 2021-08-07 03:11 | NUR ---
Pt has been pleasant and cooperative with staff tonight. Meds were taken whole and she has had no behaviors tonight. Since going to bed she has been sleeping.
[2021-08-07 06:32] VITALS: BP 140/59
[2021-08-07] MEDS: LACTOBACILLUS RHAMNOSUS GG 1 CAPSULE. PO SCH ×2 (07:33→20:11)
[2021-08-07] MEDS: MULTIVITAMIN with MINERAL TABLET. PO SCH (07:33)
--- NOTE | 2021-08-07 08:34 | PDOC2 ---
CARDIAC CONSULT DATE OF CONSULT DOS: DATE: 08/07/21 TIME: 08:24 REASON FOR CONSULT Reason for Consult Bradycardia REFERRING PHYSICIAN Referring Physician Dr. Muñoz SOURCE Source: Chart review HPI History of Present Illness This is a 80 yo female who was admitted to [facility] secondary to increased paranoia, delusional thinking, and increased insomnia. Was noted to be bradycardic, which prompted this consult. Patient difficult to understand due to her dysarthria. She tells me she is at the hospital. Knows her name, but not year. She denies any dizziness, diaphoresis, chest pain, shortness of breath, or passing out episodes. HR per review of vital signs have range from 39-75. Has had multiple EKG's which all show sinus bradycardia. No high-grade AV blocks noted. RN reports no complaints of dizziness. She has had no falls or syncopal episodes. PAST MEDICAL HISTORY Cardiovascular: No pertinent hx Pulmonary: No pertinent hx Psych: Schizophrenia Renal/: No pertinent hx, UTI PAST SURGICAL HISTORY Past Surgical History: No pertinent history FAMILY HISTORY Family History: Family History Unknown SOCIAL HISTORY ALCOHOL: none Drugs: None Lives: Intermediate CURRENT MEDICATIONS Current Medications Current Medications Acetaminophen (Tylenol) 650 mg PRN Q6HRS PRN PO MILD PAIN / TEMP > 100.3'F Last administered on 08/05/21at 03:07; Start 07/29/21 at 16:15 Multi-Ingredient Ointment (Analgesic [place]) 1 eddy PRN QID PRN TP MUSCLE PAIN; Start 07/29/21 at 16:15 Al Hydroxide/Mg Hydroxide (Mylanta Plus Xs) 15 ml PRN AFTMEALHC PRN PO DYSPEPSIA; Start 07/29/21 at 16:15 Magnesium Hydroxide (Milk Of Magnesia) 2,400 mg PRN QHS PRN PO CONSTIPATION; Start 07/29/21 at 16:15 Aripiprazole (Abilify) 15 mg DAILY PO Last administered on 08/03/21at 08:43; Start 07/30/21 at 09:00; Stop 08/03/21 at 18:42; Status DC Nystatin (Nystop) 1 eddy PRN BID PRN TP RASH Last administered on 08/03/21at 10:30; Start 07/29/21 at 16:15 Alprazolam (Xanax) 1 mg HS PO Last administered on 08/06/21 21:19; Start 07/29/21 at 21:00 Zinc Acetate/ Diphenhydramine (Benadryl Topical) 1 eddy PRN TID PRN TP ITCHY SKIN; Start 07/29/21 at 16:30 Vitamin D (Vitamin D3) 50,000 unit WEEKLY PO Last administered on 08/02/21 08:52; Start 08/02/21 at 09:00 Multivitamins/ Calcium (Thera-M Plus) 1 tab DAILY PO Last administered on 08/07/21 07:33; Start 07/30/21 at 09:00 Olanzapine (ZyPREXA ZYDIS) 2.5 mg PRN Q2HR PRN PO PSYCHOSIS; Start 07/30/21 at 11:15 Trazodone HCl (Desyrel) 50 mg PRN QHS PRN PO INSOMNIA, MAY REPEAT X1 Last administered on 07/30/21at 20:41; Start 07/30/21 at 11:15; Stop 08/01/21 at 12:48; Status DC Divalproex Sodium (Depakote Er) 500 mg QHS PO Last administered on 08/02/21 20:01; Start 07/31/21 at 21:00; Stop 08/03/21 at 18:58; Status DC Levofloxacin (Levaquin) 250 mg DAILY06 PO Last administered on 08/06/21 06:28; Start 08/02/21 at 06:00; Stop 08/06/21 at 23:00; Status DC Lactobacillus Rhamnosus (Culturelle) 1 cap BID PO Last administered on 08/07/21 07:33; Start 08/03/21 at 09:00 Risperidone (RisperDAL) 0.5 mg QHS PO Last administered on 08/06/21 21:17; Start 08/03/21 at 21:00 Divalproex Sodium (Depakote Er) 250 mg HS PO Last administered on 08/06/21 21:16; Start 08/03/21 at 21:00 Divalproex Sodium (Depakote Er) 500 mg HS PO Last administered on 08/06/21 21:16; Start 08/03/21 at 21:00 Active Scripts Active Reported Abilify (Aripiprazole) 15 Mg Tablet 1 Tab PO DAILY Nystatin 15 Gm Powder 1 Eddy TP BID PRN apply to affected area(s) Benadryl Itch Cooling [place] (Diphenhydramine Hcl/Zinc Acet) 59 Ml [place] 1 Eddy TP TID PRN Vitamin D2 (Ergocalciferol (Vitamin D2)) 1,250 Mcg Capsule 1,250 Mcg PO WEEKLY Multiple Vitamin (Multivitamin With Minerals) 1 Each Tablet 1 Each PO DAILY Xanax (Alprazolam) 1 Mg Tablet 1 Tab PO HS ALLERGIES Allergies: Coded Allergies: haloperidol (Verified Allergy, Intermediate, 07/29/21) ROS Review of Systems unobtainable PHYSICAL EXAM General: Alert, Cooperative, No acute distress HEENT: Atraumatic Lungs: Clear to auscultation Heart: Other (SR/SB ) Abdomen: Soft, No tenderness Extremities: No cyanosis, Other (1+ bilateral LE edema ) Skin: No breakdown Neuro: Sensation intact, Other (dysarthria ) MUSCULOSKELETAL: Osteoarthritic changes both hands VITALS Vital Signs Vital Signs Date Time Temp Pulse Resp B/P (MAP) Pulse Ox O2 Delivery O2 Flow Rate FiO2 08/07/21 06:32 97.5 60 20 140/59 (86) 97 08/04/21 06:10 Room Air LABS LABS Laboratory Tests Test 08/06/21 06:55 White Blood Count 5.9 x10^3/uL (4.0-11.0) Red Blood Count 4.36 x10^6/uL (3.50-5.40) Hemoglobin 13.2 g/dL (12.0-15.5) Hematocrit 39.9 % (36.0-47.0) Mean Corpuscular Volume 92 fL (79-100) Mean Corpuscular Hemoglobin 30 pg (25-35) Mean Corpuscular Hemoglobin Concent 33 g/dL (31-37) Red Cell Distribution Width 14.8 % (11.5-14.5) Platelet Count 266 x10^3/uL (140-400) Neutrophils (%) (Auto) 58 % (31-73) Lymphocytes (%) (Auto) 29 % (24-48) Monocytes (%) (Auto) 7 % (0-9) Eosinophils (%) (Auto) 6 % (0-3) Basophils (%) (Auto) 1 % (0-3) Neutrophils # (Auto) 3.4 x10^3uL (1.8-7.7) Lymphocytes # (Auto) 1.7 x10^3/uL (1.0-4.8) Monocytes # (Auto) 0.4 x10^3/uL (0.0-1.1) Eosinophils # (Auto) 0.3 x10^3/uL (0.0-0.7) Basophils # (Auto) 0.0 x10^3/uL (0.0-0.2) Sodium Level 130 mmol/L (136-145) Potassium Level 4.4 mmol/L (3.5-5.1) Chloride Level 95 mmol/L (98-107) Carbon Dioxide Level 29 mmol/L (21-32) Anion Gap 6 (6-14) Blood Urea Nitrogen 15 mg/dL (7-20) Creatinine 0.7 mg/dL (0.6-1.0) Estimated GFR (Cockcroft-Gault) 80.7 BUN/Creatinine Ratio 21 (6-20) Glucose Level 100 mg/dL (70-99) Calcium Level 9.6 mg/dL (8.5-10.1) Total Bilirubin 0.2 mg/dL (0.2-1.0) Aspartate Amino Transf (AST/SGOT) 13 U/L (15-37) Alanine Aminotransferase (ALT/SGPT) 12 U/L (14-59) Alkaline Phosphatase 79 U/L (46-116) Ammonia < 10 mcmol/L (11-34) Total Protein 6.2 g/dL (6.4-8.2) Albumin 2.9 g/dL (3.4-5.0) Albumin/Globulin Ratio 0.9 (1.0-1.7) Valproic Acid (Depakene) Level 81 mcg/mL (50-100) Valproic Acid Last Dose Date 08/05/21 Valproic Acid Last Dose Time 2100 ASSESSMENT/PLAN Assessment/Plan 1. Schizophrenia, paranoia, delusional thinking; CT head without acute findings 2. Sinus bradycardia; HR ranges from 39-75 per vitals. No reports of dizziness, falls, or syncope. Meds list reviewed, no clear culprits for bradycardia noted 3. UTI 4. Hypothyroidism Recommendations Avoid AV denia blocking agents Monitor rate with activity today to ensure appropriate chronotropic response Doubt patient would comply with heart monitor Could consider outpatient loop recorder Supportive care STELLA GARCÍA APRN Aug 07, 2021 08:34
--- NOTE | 2021-08-07 12:00 | NUR ---
Per Cardiology's instructions, patient's pulse rate was measured at rest and then after walking around. Patient's pulse rate at rest was 51bpm; while walking her pulse varied between 61 and 75bpm, then when seated her pulse was 60bpm. She had no reports of feeling light-headed or dizzy. Will continue to monitor.
--- NOTE | 2021-08-07 13:55 | NUR ---
HAY had a conference call with pt dtrs Chinmay to further discuss discharge plans. SW educated the difference between AL, SNF and LTC as well as the financial responsibility. SW also discussed how pt is doing here, noting that pt may be performing well here as she is aware enough to know that she is in the hospital and with staff doing 15 minute checks and having a consistent schedule may be helping her. Pt family fears that in bringing pt home, she does not always recognize her and will not accept care from him; furthermore, they had struggle getting her to outpt appointments so home may not be the best option. SW went over options for placement and will send the options to them via email along with a copy of pt medication list. HAY did note that visiting is now open and explained how that would go. HAY was able to schedule a visit for Tuesday at 1200. Chinmay will discuss this with pt and get back to no later than Tuesday with their decision on discharge.
[2021-08-07 15:42] VITALS: BP 116/78
--- NOTE | 2021-08-07 17:54 | NUR ---
Patient has been withdrawn to her room most of the shift, only spending a short amount of time in the day room. She has been cooperative with meds and assessments. Patient has not voiced any psychoses. Will continue to monitor and report to oncoming staff.
--- NOTE | 2021-08-07 19:01 | EKG ---
[address] [address] Test Date: 2021-08-07 Test Time: 09:48:02 Pat Name: SARAHI ARGUETA Department: Room: [address] [place] [address] Gender: F [employer]: : 1940 Requested By: STELLA GARCÍA Order Number: [id number] Reading MD: Maikol Mcclain Measurements Intervals [place] Rate: 52 P: 37 MO: 154 QRS: -42 QRSD: 88 T: 12 QT: 442 QTc: 413 Interpretive Statements SINUS ARRHYTHMIA ABNORMAL LEFT AXIS DEVIATION QRS(T) CONTOUR ABNORMALITY CONSISTENT WITH ANTEROSEPTAL INFARCT PROBABLY OLD CONSISTENT WITH INFERIOR INFARCT PROBABLY OLD ABNORMAL ECG Electronically Signed On 08-14-2021 14:17:15 CDT by Maikol Mcclain
[2021-08-07] MEDS: risperiDONE 0.5 MG TABLET. PO SCH (20:10)
[2021-08-07] MEDS: ALPRAZolam 0.5 MG TABLET PO SCH (20:10)
[2021-08-07] MEDS: DIVALPROEX ER 250 MG TAB.ER.24H. PO SCH (20:11)
[2021-08-07] MEDS: DIVALPROEX ER 500 MG TAB.ER.24H PO SCH (20:11)
--- NOTE | 2021-08-07 22:14 | PDOC ---
Exam Note: Florencio Note: Please also refer to the separate dictated note~for this date of service dictated separately.~Patient seen individually. Discussed the patient with Nursing staff reviewed the chart.~Reviewed interim history and current functioning. Reviewed vital signs,~Labs/ Radiology~and current medications noted below. Continue current treatment with the changes noted in the dictated addendum note Assessment: Vital Signs/I&O: Vital Signs Date Time Temp Pulse Resp B/P (MAP) Pulse Ox O2 Delivery O2 Flow Rate FiO2 08/07/21 15:42 98.2 40 20 116/78 (91) 99 08/04/21 06:10 Room Air I & O 08/06/21 08/06/21 08/07/21 14:59 22:59 06:59 Intake Total 200 ml 420 ml Balance 200 ml 420 ml Current Medications: Meds: Current Medications Medications (Trade) Dose Ordered Sig/Dawit Route PRN Reason Start Time Stop Time Status Last Admin Dose Admin Acetaminophen (Tylenol) 650 mg PRN Q6HRS PRN PO MILD PAIN / TEMP > 100.3'F 07/29/21 16:15 08/05/21 03:07 Multi-Ingredient Ointment (Analgesic [place]) 1 paulo PRN QID PRN TP MUSCLE PAIN 07/29/21 16:15 Al Hydroxide/Mg Hydroxide (Mylanta Plus Xs) 15 ml PRN AFTMEALHC PRN PO DYSPEPSIA 07/29/21 16:15 Magnesium Hydroxide (Milk Of Magnesia) 2,400 mg PRN QHS PRN PO CONSTIPATION 07/29/21 16:15 Aripiprazole (Abilify) 15 mg DAILY PO 07/30/21 09:00 08/03/21 18:42 DC 08/03/21 08:43 Nystatin (Nystop) 1 paulo PRN BID PRN TP RASH 07/29/21 16:15 08/03/21 10:30 Alprazolam (Xanax) 1 mg HS PO 07/29/21 21:00 08/07/21 20:10 Zinc Acetate/ Diphenhydramine (Benadryl Topical) 1 paulo PRN TID PRN TP ITCHY SKIN 07/29/21 16:30 Vitamin D (Vitamin D3) 50,000 unit WEEKLY PO 08/02/21 09:00 08/02/21 08:52 Multivitamins/ Calcium (Thera-M Plus) 1 tab DAILY PO 07/30/21 09:00 08/07/21 07:33 Olanzapine (ZyPREXA ZYDIS) 2.5 mg PRN Q2HR PRN PO PSYCHOSIS 07/30/21 11:15 Trazodone HCl (Desyrel) 50 mg PRN QHS PRN PO INSOMNIA, MAY REPEAT X1 07/30/21 11:15 08/01/21 12:48 DC 07/30/21 20:41 Divalproex Sodium (Depakote Er) 500 mg QHS PO 07/31/21 21:00 08/03/21 18:58 DC 08/02/21 20:01 Levofloxacin (Levaquin) 250 mg DAILY06 PO 08/02/21 06:00 08/06/21 23:00 DC 08/06/21 06:28 Lactobacillus Rhamnosus (Culturelle) 1 cap BID PO 08/03/21 09:00 08/07/21 20:11 Risperidone (RisperDAL) 0.5 mg QHS PO 08/03/21 21:00 08/07/21 20:10 Divalproex Sodium (Depakote Er) 250 mg HS PO 08/03/21 21:00 08/07/21 20:11 Divalproex Sodium (Depakote Er) 500 mg HS PO 08/03/21 21:00 08/07/21 20:11 I have reviewed the current psychotropics carefully including drug interactions. Risk benefit ratio favors no change other than as noted in my dictated progress note. Diagnosis: Problems: (1) Schizoaffective disorder, bipolar type (2) Impulse control disorder, unspecified (3) Mild cognitive impairment (4) Anxiety disorder, unspecified (5) Schizophrenia, paranoid, chronic with acute exacerbation (6) Bipolar disorder, current episode mixed, severe, with psychotic features PATRIC DAVIS MD Aug 07, 2021 22:13
--- NOTE | 2021-08-07 23:54 | NUR ---
Pt located in her room this evening sitting calmly. Pt compliant with whole medications. Pt pleasant and has garbled speech.
[2021-08-08 05:58] VITALS: BP 129/69
--- NOTE | 2021-08-08 10:27 | PDOC ---
Exam Note: Florencio Note: This note is a late entry for 08/06/2021 covers elements not covered in my initial note. Subjective: The patient was reviewed at treatment team meeting individually in the morning on 08/06/2021 with Sofie Abdi and Irena Herrera (professor of social work), Floridalma, activity therapy, and Jason SIMON, discussed and reviewed the chart. Her daughter Chinmay attended the meeting and shared very relevant historical information including progressive memory deficits, questionable diagnosis of dementia. However, she does have psychotic symptoms and we like these to be resolved to be able to assess level of dementia. She may then need neuropsychological testing at that stage. It could be done as an outpatient. The patient slept 3 hours previous night. Average sleep 5-1/2 hours. Appetite 80%. Discussed the patients diagnoses, progress, prognosis and medications at great length in treatment team meeting and answered many appropriate questions by the family. Also discussed with Sammy SIMON in the evening. She has had some bradycardia and we will have a Cardiology consult to follow up on this. She has completed Levaquin for UTI. Review of Systems: Ambulation impaired, with walker. No CV, , pulmonary, eye system symptoms on review. Mental Status Exam: The patient is oriented to herself and situation. Speech d ifficult to understand due to her dysarthria. Abstraction fair. Computation impaired. Language function intact. Short-term memory impaired. She denies hallucinations. No suicidal or homicidal ideation. Laboratory Data: Reviewed. Impression: Schizoaffective disorder, bipolar type, with psychotic features. Anxiety disorder unspecified. Impulse control disorder unspecified. Plan: We will continue current psychotropics mentioned in my initial note. Reviewed drug interactions, risk-benefit ratio. We will have Cardiology follow up and for now there is no psychotic symptoms even though the low dose Risperdal 0.5 mg h.s. we will maintain at that together with Xanax and Depakote and we will adjust latter to reach therapeutic level. Assessment: Vital Signs/I&O: Vital Signs Date Time Temp Pulse Resp B/P (MAP) Pulse Ox O2 Delivery O2 Flow Rate FiO2 08/08/21 05:58 97.1 47 14 129/69 (89) 96 08/04/21 06:10 Room Air I & O 08/07/21 08/07/21 08/08/21 15:00 23:00 07:00 Intake Total 600 ml 880 ml Balance 600 ml 880 ml Current Medications: I have reviewed the current psychotropics carefully including drug interactions. Risk benefit ratio favors no change other than as noted in my dictated progress note. Diagnosis: Problems: (1) Schizophrenia, chronic with acute exacerbation (2) Schizoaffective disorder, bipolar type (3) Impulse control disorder, unspecified (4) Mild cognitive impairment (5) Anxiety disorder, unspecified (6) Schizophrenia, paranoid, chronic with acute exacerbation (7) Bipolar disorder, current episode mixed, severe, with psychotic features PATRIC DAVIS MD Aug 08, 2021 10:27
[2021-08-08] MEDS: MULTIVITAMIN with MINERAL TABLET. PO SCH (12:26)
[2021-08-08] MEDS: LACTOBACILLUS RHAMNOSUS GG 1 CAPSULE. PO SCH ×2 (12:26→20:07)
[2021-08-08 16:29] VITALS: BP 100/64
--- NOTE | 2021-08-08 17:40 | NUR ---
Patient has been withdrawn to her room most of the shift, she slept in late and skipped breakfast. She has been cooperative with meds and assessments. Patient has not voiced any psychoses. Will continue to monitor and report to oncoming staff.
[2021-08-08] MEDS: DIVALPROEX ER 500 MG TAB.ER.24H PO SCH (20:06)
[2021-08-08] MEDS: ALPRAZolam 0.5 MG TABLET PO SCH (20:07)
[2021-08-08] MEDS: DIVALPROEX ER 250 MG TAB.ER.24H. PO SCH (20:07)
[2021-08-08] MEDS: risperiDONE 0.5 MG TABLET. PO SCH (20:07)
--- NOTE | 2021-08-08 21:58 | PDOC ---
Exam Note: Florencio Note: Please also refer to the separate dictated note~for this date of service dictated separately.~Patient seen individually. Discussed the patient with Nursing staff reviewed the chart.~Reviewed interim history and current functioning. Reviewed vital signs,~Labs/ Radiology~and current medications noted below. Continue current treatment with the changes noted in the dictated addendum note Assessment: Vital Signs/I&O: Vital Signs Date Time Temp Pulse Resp B/P (MAP) Pulse Ox O2 Delivery O2 Flow Rate FiO2 08/08/21 16:29 97.6 45 18 100/64 (76) 98 08/04/21 06:10 Room Air I & O 08/07/21 08/07/21 08/08/21 15:00 23:00 07:00 Intake Total 600 ml 880 ml Balance 600 ml 880 ml Labs: Laboratory Tests Test 08/08/21 19:16 Glucose (Fingerstick) 92 mg/dL (70-99) Current Medications: Meds: Laboratory Tests Test 08/08/21 19:16 Glucose (Fingerstick) 92 mg/dL Current Medications Medications (Trade) Dose Ordered Sig/Dawit Route PRN Reason Start Time Stop Time Status Last Admin Dose Admin Acetaminophen (Tylenol) 650 mg PRN Q6HRS PRN PO MILD PAIN / TEMP > 100.3'F 07/29/21 16:15 08/05/21 03:07 Multi-Ingredient Ointment (Analgesic [place]) 1 paulo PRN QID PRN TP MUSCLE PAIN 07/29/21 16:15 Al Hydroxide/Mg Hydroxide (Mylanta Plus Xs) 15 ml PRN AFTMEALHC PRN PO DYSPEPSIA 07/29/21 16:15 Magnesium Hydroxide (Milk Of Magnesia) 2,400 mg PRN QHS PRN PO CONSTIPATION 07/29/21 16:15 Aripiprazole (Abilify) 15 mg DAILY PO 07/30/21 09:00 08/03/21 18:42 DC 08/03/21 08:43 Nystatin (Nystop) 1 paulo PRN BID PRN TP RASH 07/29/21 16:15 08/03/21 10:30 Alprazolam (Xanax) 1 mg HS PO 07/29/21 21:00 08/08/21 20:07 Zinc Acetate/ Diphenhydramine (Benadryl Topical) 1 paulo PRN TID PRN TP ITCHY SKIN 07/29/21 16:30 Vitamin D (Vitamin D3) 50,000 unit WEEKLY PO 08/02/21 09:00 08/02/21 08:52 Multivitamins/ Calcium (Thera-M Plus) 1 tab DAILY PO 07/30/21 09:00 08/08/21 12:26 Olanzapine (ZyPREXA ZYDIS) 2.5 mg PRN Q2HR PRN PO PSYCHOSIS 07/30/21 11:15 Trazodone HCl (Desyrel) 50 mg PRN QHS PRN PO INSOMNIA, MAY REPEAT X1 07/30/21 11:15 08/01/21 12:48 DC 07/30/21 20:41 Divalproex Sodium (Depakote Er) 500 mg QHS PO 07/31/21 21:00 08/03/21 18:58 DC 08/02/21 20:01 Levofloxacin (Levaquin) 250 mg DAILY06 PO 08/02/21 06:00 08/06/21 23:00 DC 08/06/21 06:28 Lactobacillus Rhamnosus (Culturelle) 1 cap BID PO 08/03/21 09:00 08/08/21 20:07 Risperidone (RisperDAL) 0.5 mg QHS PO 08/03/21 21:00 08/08/21 20:07 Divalproex Sodium (Depakote Er) 250 mg HS PO 08/03/21 21:00 08/08/21 20:07 Divalproex Sodium (Depakote Er) 500 mg HS PO 08/03/21 21:00 08/08/21 20:06 I have reviewed the current psychotropics carefully including drug interactions. Risk benefit ratio favors no change other than as noted in my dictated progress note. Diagnosis: Problems: (1) Schizoaffective disorder, bipolar type (2) Impulse control disorder, unspecified (3) Mild cognitive impairment (4) Anxiety disorder, unspecified (5) Schizophrenia, paranoid, chronic with acute exacerbation (6) Bipolar disorder, current episode mixed, severe, with psychotic features PATRIC DAVIS MD Aug 08, 2021 21:57
--- NOTE | 2021-08-08 23:57 | NUR ---
Pt located in her room this evening. Compliant with whole medications. Pleasant and cooperative.
[2021-08-09 05:53] VITALS: BP 124/44
--- NOTE | 2021-08-09 08:14 | PDOC ---
Exam Note: Florencio Note: This note is a late entry for 08/07/2021 covers elements not covered in my initial note. Subjective: The patient was seen individually on 08/07/2021, discussed and reviewed the chart with Jason SIMON. The patient slept 3-1/4 hours previous night. She has been somewhat withdrawn. No clear psychotic symptoms. She was seen by Cardiology. EKG is being repeated and I will defer to them for her bradycardia. I met with her in her room. Review of Systems: Ambulation impaired, with walker. No CV, , pulmonary, eye system symptoms on review. Mental Status Exam: The patient is oriented to herself and situation. Speech difficult to understand.. Abstraction fair. Computation impaired. Language function intact. Short-term memory impaired. No suicidal or homicidal ideation. Laboratory Data: Reviewed. Impression: Schizoaffective disorder, bipolar type, with psychotic features. Anxiety disorder unspecified. Impulse control disorder unspecified. Plan: We will continue current psychotropics mentioned in my initial note. Reviewed drug interactions, risk-benefit ratio. Assessment: Vital Signs/I&O: Vital Signs Date Time Temp Pulse Resp B/P (MAP) Pulse Ox O2 Delivery O2 Flow Rate FiO2 08/09/21 05:53 98.1 48 18 124/44 (70) 94 Room Air I & O 08/08/21 08/08/21 08/09/21 15:00 23:00 07:00 Intake Total 240 ml 360 ml Balance 240 ml 360 ml Labs: Laboratory Tests Test 08/08/21 19:16 Glucose (Fingerstick) 92 mg/dL (70-99) Current Medications: I have reviewed the current psychotropics carefully including drug interactions. Risk benefit ratio favors no change other than as noted in my dictated progress note. Diagnosis: Problems: (1) Schizoaffective disorder, bipolar type (2) Impulse control disorder, unspecified (3) Mild cognitive impairment (4) Anxiety disorder, unspecified (5) Schizophrenia, paranoid, chronic with acute exacerbation (6) Bipolar disorder, current episode mixed, severe, with psychotic features PATRIC DAVIS MD Aug 09, 2021 08:14
[2021-08-09] MEDS: MULTIVITAMIN with MINERAL TABLET. PO SCH (08:48)
[2021-08-09] MEDS: CHOLECALCIFEROL (VITAMIN D3) 50,000 UNIT CAPSULE PO SCH (08:48)
[2021-08-09] MEDS: LACTOBACILLUS RHAMNOSUS GG 1 CAPSULE. PO SCH ×2 (08:48→20:48)
[2021-08-09 11:09] LABS: BASO % 1 % (0-3); EOS # 0.3 x10^3/uL (0.0-0.7); EOS % 6 % (0-3); HEMATOCRIT 36.9 % (36.0-47.0); HEMOGLOBIN 12.3 g/dL (12.0-15.5); LYMPH # 1.2 x10^3/uL (1.0-4.8); LYMPH % 25 % (24-48); MEAN CORPUSCULAR HEMOGLOBIN 31 pg (25-35); MEAN CORPUSCULAR HGB CONC 33 g/dL (31-37); MEAN CORPUSCULAR VOLUME 91 fL (79-100); MONO # 0.4 x10^3/uL (0.0-1.1); MONO % 8 % (0-9); NEUT # 3.1 x10^3uL (1.8-7.7); NEUT % 61 % (31-73); PLATELET COUNT 225 x10^3/uL (140-400); RED BLOOD COUNT 4.04 x10^6/uL (3.50-5.40); RED CELL DISTRIBUTION WIDTH 14.8 % (11.5-14.5)
[2021-08-09 11:33] LABS: ALBUMIN 2.7 g/dL (3.4-5.0); ALBUMIN/GLOBULIN RATIO 0.8 (1.0-1.7); CALCIUM 9.5 mg/dL (8.5-10.1); CREATININE 0.7 mg/dL (0.6-1.0); GFR 80.7; POTASSIUM 3.8 mmol/L (3.5-5.1); TOTAL BILIRUBIN 0.3 mg/dL (0.2-1.0); TOTAL PROTEIN 6.2 g/dL (6.4-8.2)
--- NOTE | 2021-08-09 15:36 | NUR ---
Nursing note: Patient in bedroom for assessment & medication. She is compliant with medications taken whole. She is A/O X3, unable to situation. She reported being and having a different last name. Patient denies pain/discomfort, 3+ pitting edema BLE noted. She is very garbled when she speaks making it hard to understand her. She is calm, & cooperative. She had a visit with family that went well. She ambulates with walker, can be unsteady at times. She is currently sitting in bed in her room. Will continue to monitor.
[2021-08-09 15:46] VITALS: BP 121/60
[2021-08-09] MEDS: DIVALPROEX ER 500 MG TAB.ER.24H PO SCH (20:48)
[2021-08-09] MEDS: risperiDONE 0.5 MG TABLET. PO SCH (20:48)
[2021-08-09] MEDS: DIVALPROEX ER 250 MG TAB.ER.24H. PO SCH (20:48)
[2021-08-09] MEDS: ALPRAZolam 0.5 MG TABLET PO SCH (20:50)
--- NOTE | 2021-08-09 21:58 | PDOC ---
Exam Note: Florencio Note: Please also refer to the separate dictated note~for this date of service dictated separately.~Patient seen individually. Discussed the patient with Nursing staff reviewed the chart.~Reviewed interim history and current functioning. Reviewed vital signs,~Labs/ Radiology~and current medications noted below. Continue current treatment with the changes noted in the dictated addendum note Assessment: Vital Signs/I&O: Vital Signs Date Time Temp Pulse Resp B/P (MAP) Pulse Ox O2 Delivery O2 Flow Rate FiO2 08/09/21 15:46 97.6 52 17 121/60 (80) 97 08/09/21 05:53 Room Air I & O 08/08/21 08/08/21 08/09/21 15:00 23:00 07:00 Intake Total 240 ml 360 ml Balance 240 ml 360 ml Labs: Laboratory Tests Test 08/09/21 10:30 White Blood Count 5.0 x10^3/uL (4.0-11.0) Red Blood Count 4.04 x10^6/uL (3.50-5.40) Hemoglobin 12.3 g/dL (12.0-15.5) Hematocrit 36.9 % (36.0-47.0) Mean Corpuscular Volume 91 fL (79-100) Mean Corpuscular Hemoglobin 31 pg (25-35) Mean Corpuscular Hemoglobin Concent 33 g/dL (31-37) Red Cell Distribution Width 14.8 % (11.5-14.5) H Platelet Count 225 x10^3/uL (140-400) Neutrophils (%) (Auto) 61 % (31-73) Lymphocytes (%) (Auto) 25 % (24-48) Monocytes (%) (Auto) 8 % (0-9) Eosinophils (%) (Auto) 6 % (0-3) H Basophils (%) (Auto) 1 % (0-3) Neutrophils # (Auto) 3.1 x10^3uL (1.8-7.7) Lymphocytes # (Auto) 1.2 x10^3/uL (1.0-4.8) Monocytes # (Auto) 0.4 x10^3/uL (0.0-1.1) Eosinophils # (Auto) 0.3 x10^3/uL (0.0-0.7) Basophils # (Auto) 0.0 x10^3/uL (0.0-0.2) Sodium Level 135 mmol/L (136-145) L Potassium Level 3.8 mmol/L (3.5-5.1) Chloride Level 100 mmol/L (98-107) Carbon Dioxide Level 25 mmol/L (21-32) Anion Gap 10 (6-14) Blood Urea Nitrogen 14 mg/dL (7-20) Creatinine 0.7 mg/dL (0.6-1.0) Estimated GFR (Cockcroft-Gault) 80.7 BUN/Creatinine Ratio 20 (6-20) Glucose Level 68 mg/dL (70-99) L Calcium Level 9.5 mg/dL (8.5-10.1) Total Bilirubin 0.3 mg/dL (0.2-1.0) Aspartate Amino Transferase (AST) 15 U/L (15-37) Alanine Aminotransferase (ALT) 11 U/L (14-59) L Alkaline Phosphatase 72 U/L (46-116) Total Protein 6.2 g/dL (6.4-8.2) L Albumin 2.7 g/dL (3.4-5.0) L Albumin/Globulin Ratio 0.8 (1.0-1.7) L Current Medications: Meds: Laboratory Tests Test 08/09/21 10:30 White Blood Count 5.0 x10^3/uL Red Blood Count 4.04 x10^6/uL Hemoglobin 12.3 g/dL Hematocrit 36.9 % Mean Corpuscular Volume 91 fL Mean Corpuscular Hemoglobin 31 pg Mean Corpuscular Hemoglobin Concent 33 g/dL Red Cell Distribution Width 14.8 % Platelet Count 225 x10^3/uL Neutrophils (%) (Auto) 61 % Lymphocytes (%) (Auto) 25 % Monocytes (%) (Auto) 8 % Eosinophils (%) (Auto) 6 % Basophils (%) (Auto) 1 % Neutrophils # (Auto) 3.1 x10^3uL Lymphocytes # (Auto) 1.2 x10^3/uL Monocytes # (Auto) 0.4 x10^3/uL Eosinophils # (Auto) 0.3 x10^3/uL Basophils # (Auto) 0.0 x10^3/uL Sodium Level 135 mmol/L Potassium Level 3.8 mmol/L Chloride Level 100 mmol/L Carbon Dioxide Level 25 mmol/L Anion Gap 10 Blood Urea Nitrogen 14 mg/dL Creatinine 0.7 mg/dL Estimated GFR (Cockcroft-Gault) 80.7 BUN/Creatinine Ratio 20 Glucose Level 68 mg/dL Calcium Level 9.5 mg/dL Total Bilirubin 0.3 mg/dL Aspartate Amino Transf (AST/SGOT) 15 U/L Alanine Aminotransferase (ALT/SGPT) 11 U/L Alkaline Phosphatase 72 U/L Total Protein 6.2 g/dL Albumin 2.7 g/dL Albumin/Globulin Ratio 0.8 Current Medications Medications (Trade) Dose Ordered Sig/Dawit Route PRN Reason Start Time Stop Time Status Last Admin Dose Admin Acetaminophen (Tylenol) 650 mg PRN Q6HRS PRN PO MILD PAIN / TEMP > 100.3'F 07/29/21 16:15 08/05/21 03:07 Multi-Ingredient Ointment (Analgesic [place]) 1 paulo PRN QID PRN TP MUSCLE PAIN 07/29/21 16:15 Al Hydroxide/Mg Hydroxide (Mylanta Plus Xs) 15 ml PRN AFTMEALHC PRN PO DYSPEPSIA 07/29/21 16:15 Magnesium Hydroxide (Milk Of Magnesia) 2,400 mg PRN QHS PRN PO CONSTIPATION 07/29/21 16:15 Aripiprazole (Abilify) 15 mg DAILY PO 07/30/21 09:00 08/03/21 18:42 DC 08/03/21 08:43 Nystatin (Nystop) 1 paulo PRN BID PRN TP RASH 07/29/21 16:15 08/03/21 10:30 Alprazolam (Xanax) 1 mg HS PO 07/29/21 21:00 08/09/21 20:50 Zinc Acetate/ Diphenhydramine (Benadryl Topical) 1 paulo PRN TID PRN TP ITCHY SKIN 07/29/21 16:30 Vitamin D (Vitamin D3) 50,000 unit WEEKLY PO 08/02/21 09:00 08/09/21 08:48 Multivitamins/ Calcium (Thera-M Plus) 1 tab DAILY PO 07/30/21 09:00 08/09/21 08:48 Olanzapine (ZyPREXA ZYDIS) 2.5 mg PRN Q2HR PRN PO PSYCHOSIS 07/30/21 11:15 Trazodone HCl (Desyrel) 50 mg PRN QHS PRN PO INSOMNIA, MAY REPEAT X1 07/30/21 11:15 08/01/21 12:48 DC 07/30/21 20:41 Divalproex Sodium (Depakote Er) 500 mg QHS PO 07/31/21 21:00 08/03/21 18:58 DC 08/02/21 20:01 Levofloxacin (Levaquin) 250 mg DAILY06 PO 08/02/21 06:00 08/06/21 23:00 DC 08/06/21 06:28 Lactobacillus Rhamnosus (Culturelle) 1 cap BID PO 08/03/21 09:00 08/09/21 20:48 Risperidone (RisperDAL) 0.5 mg QHS PO 08/03/21 21:00 08/09/21 20:48 Divalproex Sodium (Depakote Er) 250 mg HS PO 08/03/21 21:00 08/09/21 20:48 Divalproex Sodium (Depakote Er) 500 mg HS PO 08/03/21 21:00 08/09/21 20:48 I have reviewed the current psychotropics carefully including drug interactions. Risk benefit ratio favors no change other than as noted in my dictated progress note. Diagnosis: Problems: (1) Schizoaffective disorder, bipolar type (2) Impulse control disorder, unspecified (3) Mild cognitive impairment (4) Anxiety disorder, unspecified (5) Schizophrenia, paranoid, chronic with acute exacerbation (6) Bipolar disorder, current episode mixed, severe, with psychotic features PATRIC DAVIS MD Aug 09, 2021 21:58
--- NOTE | 2021-08-09 23:56 | NUR ---
Pt located in her room all evening. Pt pleasant and cooperative. Compliant with whole medications.
[2021-08-10 06:42] VITALS: BP 142/55
--- NOTE | 2021-08-10 08:24 | PDOC ---
Exam Note: Florencio Note: This note is a late entry for 08/08/2021 covers elements not covered in my initial note. Subjective: The patient was seen individually on 08/08/2021, discussed and reviewed the chart with Yesy SIMON. The patient slept 7-1/2 hours previous night. I met with her in her room. Overall she has been less paranoid, quite appropriate. She has difficulty with her speech due to the articulation problems. Review of Systems: Ambulation impaired, with walker. No CV, , pulmonary, eye system symptoms on review. Mental Status Exam: The patient is oriented to herself and situation. Speech difficult to understand. Abstraction fair. Computation impaired. Language function intact. Short-term memory impaired. No suicidal or homicidal ideation. When questioned directly on having any psychotic symptoms she denied these. Laboratory Data: Reviewed. Impression: Schizoaffective disorder, bipolar type, with psychotic features. Anxiety disorder unspecified. Impulse control disorder unspecified. Plan: We will continue current psychotropics mentioned in my initial note. Reviewed drug interactions, risk-benefit ratio. Assessment: Vital Signs/I&O: Vital Signs Date Time Temp Pulse Resp B/P (MAP) Pulse Ox O2 Delivery O2 Flow Rate FiO2 08/10/21 06:42 97.7 42 16 142/55 (84) 97 08/09/21 05:53 Room Air I & O 08/09/21 08/09/21 08/10/21 15:00 23:00 07:00 Intake Total 480 ml 300 ml 120 ml Balance 480 ml 300 ml 120 ml Labs: Laboratory Tests Test 08/09/21 10:30 White Blood Count 5.0 x10^3/uL (4.0-11.0) Red Blood Count 4.04 x10^6/uL (3.50-5.40) Hemoglobin 12.3 g/dL (12.0-15.5) Hematocrit 36.9 % (36.0-47.0) Mean Corpuscular Volume 91 fL (79-100) Mean Corpuscular Hemoglobin 31 pg (25-35) Mean Corpuscular Hemoglobin Concent 33 g/dL (31-37) Red Cell Distribution Width 14.8 % (11.5-14.5) H Platelet Count 225 x10^3/uL (140-400) Neutrophils (%) (Auto) 61 % (31-73) Lymphocytes (%) (Auto) 25 % (24-48) Monocytes (%) (Auto) 8 % (0-9) Eosinophils (%) (Auto) 6 % (0-3) H Basophils (%) (Auto) 1 % (0-3) Neutrophils # (Auto) 3.1 x10^3uL (1.8-7.7) Lymphocytes # (Auto) 1.2 x10^3/uL (1.0-4.8) Monocytes # (Auto) 0.4 x10^3/uL (0.0-1.1) Eosinophils # (Auto) 0.3 x10^3/uL (0.0-0.7) Basophils # (Auto) 0.0 x10^3/uL (0.0-0.2) Sodium Level 135 mmol/L (136-145) L Potassium Level 3.8 mmol/L (3.5-5.1) Chloride Level 100 mmol/L (98-107) Carbon Dioxide Level 25 mmol/L (21-32) Anion Gap 10 (6-14) Blood Urea Nitrogen 14 mg/dL (7-20) Creatinine 0.7 mg/dL (0.6-1.0) Estimated GFR (Cockcroft-Gault) 80.7 BUN/Creatinine Ratio 20 (6-20) Glucose Level 68 mg/dL (70-99) L Calcium Level 9.5 mg/dL (8.5-10.1) Total Bilirubin 0.3 mg/dL (0.2-1.0) Aspartate Amino Transferase (AST) 15 U/L (15-37) Alanine Aminotransferase (ALT) 11 U/L (14-59) L Alkaline Phosphatase 72 U/L (46-116) Total Protein 6.2 g/dL (6.4-8.2) L Albumin 2.7 g/dL (3.4-5.0) L Albumin/Globulin Ratio 0.8 (1.0-1.7) L Current Medications: I have reviewed the current psychotropics carefully including drug interactions. Risk benefit ratio favors no change other than as noted in my dictated progress note. Diagnosis: Problems: (1) Schizophrenia, chronic with acute exacerbation (2) Schizoaffective disorder, bipolar type (3) Impulse control disorder, unspecified (4) Mild cognitive impairment (5) Anxiety disorder, unspecified (6) Schizophrenia, paranoid, chronic with acute exacerbation (7) Bipolar disorder, current episode mixed, severe, with psychotic features PATRIC DAVIS MD Aug 10, 2021 08:24
--- NOTE | 2021-08-10 08:50 | PDOC ---
Exam Note: Florencio Note: This note is a late entry for 08/09/2021 covers elements not covered in my initial note. Subjective: The patient was seen individually on 08/09/2021, discussed and reviewed the chart with Yesy SIMON. The patient slept 4 hours previous night. Family visited today and patient has done well. She has been taking medications. Review of Systems: Ambulation impaired, with walker. No CV, , pulmonary, eye system symptoms on review. Mental Status Exam: The patient is oriented to herself and situation. I met with her in her room. Speech remains unchanged, difficult to understand.. Abstraction fair. Computation impaired. Language function intact. No suicidal or homicidal ideation. Laboratory Data: Reviewed. Impression: Schizoaffective disorder, bipolar type, with psychotic features. Anxiety disorder unspecified. Impulse control disorder unspecified. Plan: We will continue current psychotropics mentioned in my initial note. Re viewed drug interactions, risk-benefit ratio. We will continue Risperdal 0.5 mg h.s., Xanax 1 mg h.s., Depakote ER 750 mg h.s., level therapeutic at 81. Adjust as clinically indicated. Assessment: Vital Signs/I&O: Vital Signs Date Time Temp Pulse Resp B/P (MAP) Pulse Ox O2 Delivery O2 Flow Rate FiO2 08/10/21 06:42 97.7 42 16 142/55 (84) 97 08/09/21 05:53 Room Air I & O 08/09/21 08/09/21 08/10/21 15:00 23:00 07:00 Intake Total 480 ml 300 ml 120 ml Balance 480 ml 300 ml 120 ml Labs: Laboratory Tests Test 08/09/21 10:30 White Blood Count 5.0 x10^3/uL (4.0-11.0) Red Blood Count 4.04 x10^6/uL (3.50-5.40) Hemoglobin 12.3 g/dL (12.0-15.5) Hematocrit 36.9 % (36.0-47.0) Mean Corpuscular Volume 91 fL (79-100) Mean Corpuscular Hemoglobin 31 pg (25-35) Mean Corpuscular Hemoglobin Concent 33 g/dL (31-37) Red Cell Distribution Width 14.8 % (11.5-14.5) H Platelet Count 225 x10^3/uL (140-400) Neutrophils (%) (Auto) 61 % (31-73) Lymphocytes (%) (Auto) 25 % (24-48) Monocytes (%) (Auto) 8 % (0-9) Eosinophils (%) (Auto) 6 % (0-3) H Basophils (%) (Auto) 1 % (0-3) Neutrophils # (Auto) 3.1 x10^3uL (1.8-7.7) Lymphocytes # (Auto) 1.2 x10^3/uL (1.0-4.8) Monocytes # (Auto) 0.4 x10^3/uL (0.0-1.1) Eosinophils # (Auto) 0.3 x10^3/uL (0.0-0.7) Basophils # (Auto) 0.0 x10^3/uL (0.0-0.2) Sodium Level 135 mmol/L (136-145) L Potassium Level 3.8 mmol/L (3.5-5.1) Chloride Level 100 mmol/L (98-107) Carbon Dioxide Level 25 mmol/L (21-32) Anion Gap 10 (6-14) Blood Urea Nitrogen 14 mg/dL (7-20) Creatinine 0.7 mg/dL (0.6-1.0) Estimated GFR (Cockcroft-Gault) 80.7 BUN/Creatinine Ratio 20 (6-20) Glucose Level 68 mg/dL (70-99) L Calcium Level 9.5 mg/dL (8.5-10.1) Total Bilirubin 0.3 mg/dL (0.2-1.0) Aspartate Amino Transferase (AST) 15 U/L (15-37) Alanine Aminotransferase (ALT) 11 U/L (14-59) L Alkaline Phosphatase 72 U/L (46-116) Total Protein 6.2 g/dL (6.4-8.2) L Albumin 2.7 g/dL (3.4-5.0) L Albumin/Globulin Ratio 0.8 (1.0-1.7) L Current Medications: I have reviewed the current psychotropics carefully including drug interactions. Risk benefit ratio favors no change other than as noted in my dictated progress note. Diagnosis: Problems: (1) Schizophrenia, chronic with acute exacerbation (2) Schizoaffective disorder, bipolar type (3) Impulse control disorder, unspecified (4) Mild cognitive impairment (5) Anxiety disorder, unspecified (6) Schizophrenia, paranoid, chronic with acute exacerbation (7) Bipolar disorder, current episode mixed, severe, with psychotic features PATRIC DAVIS MD Aug 10, 2021 08:50
[2021-08-10] MEDS: LACTOBACILLUS RHAMNOSUS GG 1 CAPSULE. PO SCH ×2 (09:06→20:27)
[2021-08-10] MEDS: MULTIVITAMIN with MINERAL TABLET. PO SCH (09:07)
--- NOTE | 2021-08-10 15:28 | NUR ---
Nursing note: Pt has been pleasant, med compliant and cooperative this shift. Pt spends some time in the day room, but is mostly withdrawn to her room. She denies having any pain/concerns. Will continue to monitor.
[2021-08-10 15:57] VITALS: BP 17/73
[2021-08-10] MEDS: risperiDONE 0.5 MG TABLET. PO SCH (20:27)
[2021-08-10] MEDS: DIVALPROEX ER 500 MG TAB.ER.24H PO SCH (20:27)
[2021-08-10] MEDS: DIVALPROEX ER 250 MG TAB.ER.24H. PO SCH (20:27)
[2021-08-10] MEDS: ALPRAZolam 0.5 MG TABLET PO SCH (20:28)
--- NOTE | 2021-08-10 21:53 | PDOC ---
Exam Note: Florencio Note: Please also refer to the separate dictated note~for this date of service dictated separately.~Patient seen individually. Discussed the patient with Nursing staff reviewed the chart.~Reviewed interim history and current functioning. Reviewed vital signs,~Labs/ Radiology~and current medications noted below. Continue current treatment with the changes noted in the dictated addendum note Assessment: Vital Signs/I&O: Vital Signs Date Time Temp Pulse Resp B/P (MAP) Pulse Ox O2 Delivery O2 Flow Rate FiO2 08/10/21 15:57 97.1 68 16 17/73 (55) 96 08/09/21 05:53 Room Air I & O 08/09/21 08/09/21 08/10/21 14:59 22:59 06:59 Intake Total 480 ml 300 ml 120 ml Balance 480 ml 300 ml 120 ml Current Medications: Meds: Current Medications Medications (Trade) Dose Ordered Sig/Dawit Route PRN Reason Start Time Stop Time Status Last Admin Dose Admin Acetaminophen (Tylenol) 650 mg PRN Q6HRS PRN PO MILD PAIN / TEMP > 100.3'F 07/29/21 16:15 08/05/21 03:07 Multi-Ingredient Ointment (Analgesic [place]) 1 paulo PRN QID PRN TP MUSCLE PAIN 07/29/21 16:15 Al Hydroxide/Mg Hydroxide (Mylanta Plus Xs) 15 ml PRN AFTMEALHC PRN PO DYSPEPSIA 07/29/21 16:15 Magnesium Hydroxide (Milk Of Magnesia) 2,400 mg PRN QHS PRN PO CONSTIPATION 07/29/21 16:15 Aripiprazole (Abilify) 15 mg DAILY PO 07/30/21 09:00 08/03/21 18:42 DC 08/03/21 08:43 Nystatin (Nystop) 1 paulo PRN BID PRN TP RASH 07/29/21 16:15 08/03/21 10:30 Alprazolam (Xanax) 1 mg HS PO 07/29/21 21:00 08/10/21 20:28 Zinc Acetate/ Diphenhydramine (Benadryl Topical) 1 paulo PRN TID PRN TP ITCHY SKIN 07/29/21 16:30 Vitamin D (Vitamin D3) 50,000 unit WEEKLY PO 08/02/21 09:00 08/09/21 08:48 Multivitamins/ Calcium (Thera-M Plus) 1 tab DAILY PO 07/30/21 09:00 08/10/21 09:07 Olanzapine (ZyPREXA ZYDIS) 2.5 mg PRN Q2HR PRN PO PSYCHOSIS 07/30/21 11:15 Trazodone HCl (Desyrel) 50 mg PRN QHS PRN PO INSOMNIA, MAY REPEAT X1 07/30/21 11:15 08/01/21 12:48 DC 07/30/21 20:41 Divalproex Sodium (Depakote Er) 500 mg QHS PO 07/31/21 21:00 08/03/21 18:58 DC 08/02/21 20:01 Levofloxacin (Levaquin) 250 mg DAILY06 PO 08/02/21 06:00 08/06/21 23:00 DC 08/06/21 06:28 Lactobacillus Rhamnosus (Culturelle) 1 cap BID PO 08/03/21 09:00 08/10/21 20:27 Risperidone (RisperDAL) 0.5 mg QHS PO 08/03/21 21:00 08/10/21 20:27 Divalproex Sodium (Depakote Er) 250 mg HS PO 08/03/21 21:00 08/10/21 20:27 Divalproex Sodium (Depakote Er) 500 mg HS PO 08/03/21 21:00 08/10/21 20:27 I have reviewed the current psychotropics carefully including drug interactions. Risk benefit ratio favors no change other than as noted in my dictated progress note. Diagnosis: Problems: (1) Schizophrenia, chronic with acute exacerbation (2) Schizoaffective disorder, bipolar type (3) Impulse control disorder, unspecified (4) Mild cognitive impairment (5) Anxiety disorder, unspecified (6) Schizophrenia, paranoid, chronic with acute exacerbation (7) Bipolar disorder, current episode mixed, severe, with psychotic features PATRIC DAVIS MD Aug 10, 2021 21:53
--- NOTE | 2021-08-10 23:20 | NUR ---
Pt located in her room sitting calmly. Compliant with whole medications. Pt stated that she was concerned about the swelling in her lower extremities. Pt informed that Dr. Dale is aware and is following her. Pt pleasant and cooperative.
[2021-08-11 06:27] VITALS: BP 186/78
[2021-08-11] MEDS: LACTOBACILLUS RHAMNOSUS GG 1 CAPSULE. PO SCH ×2 (08:30→20:30)
[2021-08-11] MEDS: MULTIVITAMIN with MINERAL TABLET. PO SCH (08:30)
--- NOTE | 2021-08-11 10:44 | NUR ---
Nursing note: Pt in dining room at time of AM med pass and assessment. She is pleasant, med compliant and cooperative. Pt denies having any pain/concerns. She was cooperative with dressing change and COVID swab this AM. She is currently sitting quietly in her room. Will continue to monitor.
[2021-08-11 15:52] VITALS: BP 133/59
[2021-08-11] MEDS: DIVALPROEX ER 500 MG TAB.ER.24H PO SCH (20:30)
[2021-08-11] MEDS: risperiDONE 0.5 MG TABLET. PO SCH (20:30)
[2021-08-11] MEDS: DIVALPROEX ER 250 MG TAB.ER.24H. PO SCH (20:30)
[2021-08-11] MEDS: ALPRAZolam 0.5 MG TABLET PO SCH (20:30)
--- NOTE | 2021-08-11 21:55 | PDOC ---
Exam Note: Florencio Note: Please also refer to the separate dictated note~for this date of service dictated separately.~Patient seen individually. Discussed the patient with Nursing staff reviewed the chart.~Reviewed interim history and current functioning. Reviewed vital signs,~Labs/ Radiology~and current medications noted below. Continue current treatment with the changes noted in the dictated addendum note Assessment: Vital Signs/I&O: Vital Signs Date Time Temp Pulse Resp B/P (MAP) Pulse Ox O2 Delivery O2 Flow Rate FiO2 08/11/21 15:52 98.3 42 20 133/59 (83) 99 08/09/21 05:53 Room Air I & O 08/10/21 08/10/21 08/11/21 15:00 23:00 07:00 Intake Total 540 ml 360 ml Balance 540 ml 360 ml Labs: Laboratory Tests Test 08/11/21 06:18 Prothrombin Time 9.9 SEC (9.4-11.4) Prothrombin Time INR 1.0 (0.9-1.1) Hepatitis A IgM Antibody Nonreactive (Nonreactive) Hepatitis B Surface Antigen Nonreactive (Nonreactive) Hepatitis B Core IgM Antibody Nonreactive (Nonreactive) Hepatitis C IgG Antibody Nonreactive (Nonreactive) Current Medications: Meds: Laboratory Tests Test 08/11/21 06:18 Prothrombin Time 9.9 SEC Prothromb Time International Ratio 1.0 Hepatitis A IgM Antibody Nonreactive Hepatitis B Surface Antigen Nonreactive Hepatitis B Core IgM Antibody Nonreactive Hepatitis C IgG Antibody Nonreactive Current Medications Medications (Trade) Dose Ordered Sig/Dawit Route PRN Reason Start Time Stop Time Status Last Admin Dose Admin Acetaminophen (Tylenol) 650 mg PRN Q6HRS PRN PO MILD PAIN / TEMP > 100.3'F 07/29/21 16:15 08/05/21 03:07 Multi-Ingredient Ointment (Analgesic [place]) 1 paulo PRN QID PRN TP MUSCLE PAIN 07/29/21 16:15 Al Hydroxide/Mg Hydroxide (Mylanta Plus Xs) 15 ml PRN AFTMEALHC PRN PO DYSPEPSIA 07/29/21 16:15 Magnesium Hydroxide (Milk Of Magnesia) 2,400 mg PRN QHS PRN PO CONSTIPATION 07/29/21 16:15 Aripiprazole (Abilify) 15 mg DAILY PO 07/30/21 09:00 08/03/21 18:42 DC 08/03/21 08:43 Nystatin (Nystop) 1 paulo PRN BID PRN TP RASH 07/29/21 16:15 08/03/21 10:30 Alprazolam (Xanax) 1 mg HS PO 07/29/21 21:00 08/11/21 20:30 Zinc Acetate/ Diphenhydramine (Benadryl Topical) 1 paulo PRN TID PRN TP ITCHY SKIN 07/29/21 16:30 Vitamin D (Vitamin D3) 50,000 unit WEEKLY PO 08/02/21 09:00 08/09/21 08:48 Multivitamins/ Calcium (Thera-M Plus) 1 tab DAILY PO 07/30/21 09:00 08/11/21 08:30 Olanzapine (ZyPREXA ZYDIS) 2.5 mg PRN Q2HR PRN PO PSYCHOSIS 07/30/21 11:15 Trazodone HCl (Desyrel) 50 mg PRN QHS PRN PO INSOMNIA, MAY REPEAT X1 07/30/21 11:15 08/01/21 12:48 DC 07/30/21 20:41 Divalproex Sodium (Depakote Er) 500 mg QHS PO 07/31/21 21:00 08/03/21 18:58 DC 08/02/21 20:01 Levofloxacin (Levaquin) 250 mg DAILY06 PO 08/02/21 06:00 08/06/21 23:00 DC 08/06/21 06:28 Lactobacillus Rhamnosus (Culturelle) 1 cap BID PO 08/03/21 09:00 08/11/21 20:30 Risperidone (RisperDAL) 0.5 mg QHS PO 08/03/21 21:00 08/11/21 20:30 Divalproex Sodium (Depakote Er) 250 mg HS PO 08/03/21 21:00 08/11/21 20:30 Divalproex Sodium (Depakote Er) 500 mg HS PO 08/03/21 21:00 08/11/21 20:30 I have reviewed the current psychotropics carefully including drug interactions. Risk benefit ratio favors no change other than as noted in my dictated progress note. Diagnosis: Problems: (1) Schizoaffective disorder, bipolar type (2) Impulse control disorder, unspecified (3) Mild cognitive impairment (4) Anxiety disorder, unspecified (5) Schizophrenia, paranoid, chronic with acute exacerbation (6) Bipolar disorder, current episode mixed, severe, with psychotic features PATRIC DAVIS MD Aug 11, 2021 21:55
--- NOTE | 2021-08-11 23:05 | NUR ---
Pt withdrawn to room, lying in bed coloring when approached. Pt calm, pleasantly confused, and disorganized. Pt cooperative with assessment and compliant with medications administered whole. No agitation or delusions noted thus far this shift.
[2021-08-12 06:17] VITALS: BP 126/72
[2021-08-12] MEDS: LACTOBACILLUS RHAMNOSUS GG 1 CAPSULE. PO SCH ×2 (08:12→20:16)
[2021-08-12] MEDS: MULTIVITAMIN with MINERAL TABLET. PO SCH (08:12)
--- NOTE | 2021-08-12 08:27 | PDOC ---
Exam Note: Florencio Note: This note is a late entry for 08/10/2021 covers elements not covered in my initial note. Subjective: The patient was seen individually on 08/10/2021, discussed and reviewed the chart with Kristen SIMON. The patient slept 5 hours previous night. I met with the patient in her room. Overall she is doing reasonably well, withdrawn, less paranoid. Denies hallucinations. Review of Systems: Ambulation impaired, with walker. No CV, , pulmonary, eye system symptoms on review. Mental Status Exam: The patient is oriented to herself and situation. Speech difficulty to dysarthria. Abstraction fair. Computation impaired. Language function intact. No suicidal or homicidal ideation. Laboratory Data: Reviewed. Impression: Schizoaffective disorder, bipolar type, with psychotic features. Anxiety disorder unspecified. Impulse control disorder unspecified. Plan: We will continue current psychotropics mentioned in my initial note. Reviewed drug interactions, risk-benefit ratio. We will continue Depakote ER 750 mg h.s., level therapeutic at 81. We may consider reducing Xanax. Maintain Risperdal 0.5 mg h.s. and Zyprexa p.r.n. Assessment: Vital Signs/I&O: Vital Signs Date Time Temp Pulse Resp B/P (MAP) Pulse Ox O2 Delivery O2 Flow Rate FiO2 08/12/21 06:17 98.3 62 20 126/72 (90) 96 08/09/21 05:53 Room Air I & O 08/11/21 08/11/21 08/12/21 15:00 23:00 07:00 Intake Total 920 ml 480 ml Balance 920 ml 480 ml Labs: Laboratory Tests Test 08/11/21 10:11 POC SARS CoV-2 Antigen Negative (NEGATIVE) Current Medications: I have reviewed the current psychotropics carefully including drug interactions. Risk benefit ratio favors no change other than as noted in my dictated progress note. Diagnosis: Problems: (1) Schizoaffective disorder, bipolar type (2) Impulse control disorder, unspecified (3) Mild cognitive impairment (4) Anxiety disorder, unspecified (5) Schizophrenia, paranoid, chronic with acute exacerbation (6) Bipolar disorder, current episode mixed, severe, with psychotic features PATRIC DAVIS MD Aug 12, 2021 08:27
--- NOTE | 2021-08-12 08:44 | PDOC ---
Exam Note: Florencio Note: This note is a late entry for 08/11/2021 covers elements not covered in my initial note. Subjective: The patient was seen individually on 08/11/2021, discussed and reviewed the chart with Kristen SIMON. The patient slept 5 hours previous night. Overall she has done reasonably well. I met with her in her room. She has been somewhat anxious, obsessive about believing she has been discharged today. She did redirect. She was seated on the chair in her room as I met with her. Review of Systems: Ambulation impaired, with walker. No CV, , pulmonary, eye system symptoms on review. Mental Status Exam: The patient is oriented to herself and situation. Speech difficulty due to dysarthria. Abstraction fair. Computation impaired. Language function intact. No suicidal or homicidal ideation. Laboratory Data: Reviewed. Impression: Schizoaffective disorder, bipolar type, with psychotic features. Anxiety disorder unspecified. Impulse control disorder unspecified. Plan: We will continue current psychotropics mentioned in my initial note. Reviewed drug interactions, risk-benefit ratio. The patients valproic acid level is therapeutic at 81. Maintain Risperdal, Xanax and Depakote at current dosage. Assessment: Vital Signs/I&O: Vital Signs Date Time Temp Pulse Resp B/P (MAP) Pulse Ox O2 Delivery O2 Flow Rate FiO2 08/12/21 06:17 98.3 62 20 126/72 (90) 96 08/09/21 05:53 Room Air I & O 08/11/21 08/11/21 08/12/21 15:00 23:00 07:00 Intake Total 920 ml 480 ml Balance 920 ml 480 ml Labs: Laboratory Tests Test 08/11/21 10:11 POC SARS CoV-2 Antigen Negative (NEGATIVE) Current Medications: I have reviewed the current psychotropics carefully including drug interactions. Risk benefit ratio favors no change other than as noted in my dictated progress note. Diagnosis: Problems: (1) Schizoaffective disorder, bipolar type (2) Impulse control disorder, unspecified (3) Mild cognitive impairment (4) Anxiety disorder, unspecified (5) Schizophrenia, paranoid, chronic with acute exacerbation (6) Bipolar disorder, current episode mixed, severe, with psychotic features PATRIC DAVIS MD Aug 12, 2021 08:44
--- NOTE | 2021-08-12 15:55 | NUR ---
Nursing note: Pt has been withdrawn to her room this shift. She is pleasant, med compliant and cooperative. Pt denies having any pain/concerns. She is currently sitting quietly in her room eating a snack. Will continue to monitor.
[2021-08-12 16:14] VITALS: BP 127/54
--- NOTE | 2021-08-12 18:33 | NUR ---
Nursing note: Spoke with pt's daughter, ANNIKA, regarding pt's garbled speech. She reported that pt has had issues with swallowing for most of her life, but in past couple years has had more issues regarding her speech. Pt has not been observed having problems with swallowing food/drink, but will continue to monitor pt while she is eating. Will pass this information off to oncoming shift to get reported to Dr. Muñoz for further consideration of treatment.
[2021-08-12] MEDS: DIVALPROEX ER 250 MG TAB.ER.24H. PO SCH (20:16)
[2021-08-12] MEDS: traZODone 50 MG TABLET. PO PRN ×2 (20:16→23:28)
[2021-08-12] MEDS: ALPRAZolam 0.5 MG TABLET PO SCH (20:16)
[2021-08-12] MEDS: DIVALPROEX ER 500 MG TAB.ER.24H PO SCH (20:16)
[2021-08-12] MEDS: risperiDONE 1 MG TABLET. PO SCH (20:17)
--- NOTE | 2021-08-12 21:49 | PDOC ---
Exam Note: Florencio Note: Please also refer to the separate dictated note~for this date of service dictated separately.~Patient seen individually. Discussed the patient with Nursing staff reviewed the chart.~Reviewed interim history and current functioning. Reviewed vital signs,~Labs/ Radiology~and current medications noted below. Continue current treatment with the changes noted in the dictated addendum note Assessment: Vital Signs/I&O: Vital Signs Date Time Temp Pulse Resp B/P (MAP) Pulse Ox O2 Delivery O2 Flow Rate FiO2 08/12/21 16:14 97.7 46 18 127/54 (78) 98 08/09/21 05:53 Room Air I & O 08/11/21 08/11/21 08/12/21 15:00 23:00 07:00 Intake Total 920 ml 480 ml Balance 920 ml 480 ml Current Medications: Meds: Current Medications Medications (Trade) Dose Ordered Sig/Dawit Route PRN Reason Start Time Stop Time Status Last Admin Dose Admin Acetaminophen (Tylenol) 650 mg PRN Q6HRS PRN PO MILD PAIN / TEMP > 100.3'F 07/29/21 16:15 08/05/21 03:07 Multi-Ingredient Ointment (Analgesic [place]) 1 paulo PRN QID PRN TP MUSCLE PAIN 07/29/21 16:15 Al Hydroxide/Mg Hydroxide (Mylanta Plus Xs) 15 ml PRN AFTMEALHC PRN PO DYSPEPSIA 07/29/21 16:15 Magnesium Hydroxide (Milk Of Magnesia) 2,400 mg PRN QHS PRN PO CONSTIPATION 07/29/21 16:15 Aripiprazole (Abilify) 15 mg DAILY PO 07/30/21 09:00 08/03/21 18:42 DC 08/03/21 08:43 Nystatin (Nystop) 1 paulo PRN BID PRN TP RASH 07/29/21 16:15 08/03/21 10:30 Alprazolam (Xanax) 1 mg HS PO 07/29/21 21:00 08/12/21 20:16 Zinc Acetate/ Diphenhydramine (Benadryl Topical) 1 paulo PRN TID PRN TP ITCHY SKIN 07/29/21 16:30 Vitamin D (Vitamin D3) 50,000 unit WEEKLY PO 08/02/21 09:00 08/09/21 08:48 Multivitamins/ Calcium (Thera-M Plus) 1 tab DAILY PO 07/30/21 09:00 08/12/21 08:12 Olanzapine (ZyPREXA ZYDIS) 2.5 mg PRN Q2HR PRN PO PSYCHOSIS 07/30/21 11:15 Trazodone HCl (Desyrel) 50 mg PRN QHS PRN PO INSOMNIA, MAY REPEAT X1 07/30/21 11:15 08/01/21 12:48 DC 07/30/21 20:41 Divalproex Sodium (Depakote Er) 500 mg QHS PO 07/31/21 21:00 08/03/21 18:58 DC 08/02/21 20:01 Levofloxacin (Levaquin) 250 mg DAILY06 PO 08/02/21 06:00 08/06/21 23:00 DC 08/06/21 06:28 Lactobacillus Rhamnosus (Culturelle) 1 cap BID PO 08/03/21 09:00 08/12/21 20:16 Risperidone (RisperDAL) 0.5 mg QHS PO 08/03/21 21:00 08/12/21 17:27 DC 08/11/21 20:30 Divalproex Sodium (Depakote Er) 250 mg HS PO 08/03/21 21:00 08/12/21 20:16 Divalproex Sodium (Depakote Er) 500 mg HS PO 08/03/21 21:00 08/12/21 20:16 Risperidone (RisperDAL) 1 mg QHS PO 08/12/21 21:00 08/12/21 20:17 Trazodone HCl (Desyrel) 50 mg PRN QHS PRN PO INSOMNIA, MAY REPEAT X1 08/12/21 17:30 08/12/21 20:16 Current Medications Medications (Trade) Dose Ordered Sig/Dawit Route PRN Reason Start Time Stop Time Status Last Admin Dose Admin Risperidone (RisperDAL) 1 mg QHS PO 08/12/21 21:00 08/12/21 20:17 Trazodone HCl (Desyrel) 50 mg PRN QHS PRN PO INSOMNIA, MAY REPEAT X1 08/12/21 17:30 08/12/21 20:16 I have reviewed the current psychotropics carefully including drug interactions. Risk benefit ratio favors no change other than as noted in my dictated progress note. Diagnosis: Problems: (1) Schizoaffective disorder, bipolar type (2) Impulse control disorder, unspecified (3) Mild cognitive impairment (4) Anxiety disorder, unspecified (5) Schizophrenia, paranoid, chronic with acute exacerbation (6) Bipolar disorder, current episode mixed, severe, with psychotic features PATRIC DAVIS MD Aug 12, 2021 21:49
--- NOTE | 2021-08-12 23:32 | NUR ---
Pt withdrawn to room, sitting quietly when approached. Pt calm, confused, and disorganized. Pt cooperative with assessment and compliant with medications administered whole. PRN Trazodone administered with HS medications with repeat dose administered @2330. No agitation or delusions noted thus far this shift.
[2021-08-13 05:53] VITALS: BP 144/77
[2021-08-13] MEDS: LACTOBACILLUS RHAMNOSUS GG 1 CAPSULE. PO SCH ×2 (08:33→21:01)
[2021-08-13] MEDS: MULTIVITAMIN with MINERAL TABLET. PO SCH (08:33)
--- NOTE | 2021-08-13 11:34 | NUR ---
WEEKLY ACTIVITY THERAPY NOTE Date of Admission:07/29/21 Date of AT Assessment: 07/30 Precipitating behaviors that initiated intake and admission: paranoia, packing bags to leave home, delusional, thinks someone is trying to steal her stuff, hiding knives, writing her name all over her clothes with a sharpie, insomnia, periods of aggression Goal aimed: increase socialization and engagement Initial Goal: Pt will participate in at least three Activity Therapy sessions per week Weekly progress towards goal: did not achieve, 2/3 Group participation level: 2 min Weekly highlights: guess word puzzles , shouted out a few guesses Tuesday Behaviors observed: withdrawn to room Plan: no change to goal Beneficial adaptations:
--- NOTE | 2021-08-13 12:02 | NUR ---
Nsg Note; confusion- COMPENSATION/BENEFITS SPECIALIST attempted to get an outfit out of pt's closet for after her shower. the pt grabbed the whole bag, saying that she needs that as she is going home today. Pt was reassured and allowed us to get out an outfit, and then amb to shower with COMPENSATION/BENEFITS SPECIALIST
--- NOTE | 2021-08-13 15:14 | NUR ---
Wound Care Wound Type/Assessment: patient seen for a follow up of wound care consult. see wound assessment. patient has a scab to the left abdomen. the patient has dry crusty red non granulated small round open areas to the left and right hip, these areas were cleaned, measured, and a dressing was applied at this time. Treatment Recommendations/Plan: Recommendations of Cleansing the area then apply Betadine to the areas then apply a foam dressing, change every 3-4 days. Education provided: Educated patient about the POC with her wounds Offloading surface/device: N/A Recommended Referrals/Tests: N/A Discharge Recommendations for dressings: Wound care will continue to f/u.Notified ALFRED Garcia about the POC
[2021-08-13 16:08] VITALS: BP 134/61
[2021-08-13] MEDS: DIVALPROEX ER 500 MG TAB.ER.24H PO SCH (21:01)
[2021-08-13] MEDS: DIVALPROEX ER 250 MG TAB.ER.24H. PO SCH (21:01)
[2021-08-13] MEDS: ALPRAZolam 0.5 MG TABLET PO SCH (21:01)
[2021-08-13] MEDS: traZODone 50 MG TABLET. PO PRN (21:01)
[2021-08-13] MEDS: risperiDONE 1 MG TABLET. PO SCH (21:01)
--- NOTE | 2021-08-13 22:13 | PDOC ---
Exam Note: Florencio Note: Please also refer to the separate dictated note~for this date of service dictated separately.~Patient seen individually. Discussed the patient with Nursing staff reviewed the chart.~Reviewed interim history and current functioning. Reviewed vital signs,~Labs/ Radiology~and current medications noted below. Continue current treatment with the changes noted in the dictated addendum note Assessment: Vital Signs/I&O: Vital Signs Date Time Temp Pulse Resp B/P (MAP) Pulse Ox O2 Delivery O2 Flow Rate FiO2 08/13/21 16:08 98.3 66 18 134/61 (85) 99 08/13/21 05:53 Room Air I & O 08/12/21 08/12/21 08/13/21 15:00 23:00 07:00 Intake Total 520 ml 480 ml Balance 520 ml 480 ml Current Medications: Meds: Current Medications Medications (Trade) Dose Ordered Sig/Dawit Route PRN Reason Start Time Stop Time Status Last Admin Dose Admin Acetaminophen (Tylenol) 650 mg PRN Q6HRS PRN PO MILD PAIN / TEMP > 100.3'F 07/29/21 16:15 08/05/21 03:07 Multi-Ingredient Ointment (Analgesic [place]) 1 paulo PRN QID PRN TP MUSCLE PAIN 07/29/21 16:15 Al Hydroxide/Mg Hydroxide (Mylanta Plus Xs) 15 ml PRN AFTMEALHC PRN PO DYSPEPSIA 07/29/21 16:15 Magnesium Hydroxide (Milk Of Magnesia) 2,400 mg PRN QHS PRN PO CONSTIPATION 07/29/21 16:15 Aripiprazole (Abilify) 15 mg DAILY PO 07/30/21 09:00 08/03/21 18:42 DC 08/03/21 08:43 Nystatin (Nystop) 1 paulo PRN BID PRN TP RASH 07/29/21 16:15 08/03/21 10:30 Alprazolam (Xanax) 1 mg HS PO 07/29/21 21:00 08/13/21 21:01 Zinc Acetate/ Diphenhydramine (Benadryl Topical) 1 paulo PRN TID PRN TP ITCHY SKIN 07/29/21 16:30 Vitamin D (Vitamin D3) 50,000 unit WEEKLY PO 08/02/21 09:00 08/09/21 08:48 Multivitamins/ Calcium (Thera-M Plus) 1 tab DAILY PO 07/30/21 09:00 08/13/21 08:33 Olanzapine (ZyPREXA ZYDIS) 2.5 mg PRN Q2HR PRN PO PSYCHOSIS 07/30/21 11:15 08/13/21 21:05 Trazodone HCl (Desyrel) 50 mg PRN QHS PRN PO INSOMNIA, MAY REPEAT X1 07/30/21 11:15 08/01/21 12:48 DC 07/30/21 20:41 Divalproex Sodium (Depakote Er) 500 mg QHS PO 07/31/21 21:00 08/03/21 18:58 DC 08/02/21 20:01 Levofloxacin (Levaquin) 250 mg DAILY06 PO 08/02/21 06:00 08/06/21 23:00 DC 08/06/21 06:28 Lactobacillus Rhamnosus (Culturelle) 1 cap BID PO 08/03/21 09:00 08/13/21 21:01 Risperidone (RisperDAL) 0.5 mg QHS PO 08/03/21 21:00 08/12/21 17:27 DC 08/11/21 20:30 Divalproex Sodium (Depakote Er) 250 mg HS PO 08/03/21 21:00 08/13/21 21:01 Divalproex Sodium (Depakote Er) 500 mg HS PO 08/03/21 21:00 08/13/21 21:01 Risperidone (RisperDAL) 1 mg QHS PO 08/12/21 21:00 08/13/21 21:01 Trazodone HCl (Desyrel) 50 mg PRN QHS PRN PO INSOMNIA, MAY REPEAT X1 08/12/21 17:30 08/13/21 21:01 Benztropine Mesylate (Cogentin) 0.5 mg DAILY PO 08/14/21 09:00 I have reviewed the current psychotropics carefully including drug interactions. Risk benefit ratio favors no change other than as noted in my dictated progress note. Diagnosis: Problems: (1) Schizoaffective disorder, bipolar type (2) Impulse control disorder, unspecified (3) Mild cognitive impairment (4) Anxiety disorder, unspecified (5) Schizophrenia, paranoid, chronic with acute exacerbation (6) Bipolar disorder, current episode mixed, severe, with psychotic features PATRIC DAVIS MD Aug 13, 2021 22:13
--- NOTE | 2021-08-14 01:34 | NUR ---
Pt withdrawn to room, sitting quietly when approached. Pt confused, disorganized, and delusional. Pt reporting to staff that the doctor told her that she is discharging home tonight. Pt difficult to re-direct, adamant that she needs to pack her belongings. Pt cooperative with assessment and compliant with medications administered whole. PRN Trazodone and PRN Zydis administered with HS medications.
[2021-08-14 06:02] VITALS: BP 116/49
[2021-08-14] MEDS: LACTOBACILLUS RHAMNOSUS GG 1 CAPSULE. PO SCH ×2 (08:03→20:37)
[2021-08-14] MEDS: BENZTROPINE MESYLATE 0.5 MG TABLET PO SCH (08:04)
[2021-08-14] MEDS: MULTIVITAMIN with MINERAL TABLET. PO SCH (08:04)
--- NOTE | 2021-08-14 11:46 | PDOC ---
Exam Note: Florencio Note: This note is a late entry for 08/12/2021 covers elements not covered in my initial note. Subjective: The patient was seen individually on 08/12/2021, discussed and reviewed the chart with Kristen SIMON. The patient slept 2 hours previous night. I met with her in her room. 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 Nursing report does appear to be a delusion according to the family. Review of Systems: Ambulation impaired, with walker. No CV, , pulmonary, eye system symptoms on review. Mental Status Exam: The patient is oriented to herself and situation. Speech difficulty due to dysarthria. Abstraction fair. Computation impaired. Language function intact. No suicidal or homicidal ideation. Laboratory Data: Reviewed. Impression: Schizoaffective disorder, bipolar type, with psychotic features. Anxiety disorder unspecified. Impulse control disorder unspecified. Plan: We will continue current psychotropics mentioned in my initial note. Reviewed drug interactions, risk-benefit ratio. Assessment: Vital Signs/I&O: Vital Signs Date Time Temp Pulse Resp B/P (MAP) Pulse Ox O2 Delivery O2 Flow Rate FiO2 08/14/21 06:02 97.9 53 16 116/49 (71) 92 08/13/21 05:53 Room Air I & O 08/13/21 08/13/21 08/14/21 15:00 23:00 07:00 Intake Total 240 ml 240 ml Output Total 1 ml Balance 240 ml 239 ml Current Medications: Meds: Current Medications Medications (Trade) Dose Ordered Sig/Dawit Route PRN Reason Start Time Stop Time Status Last Admin Dose Admin Benztropine Mesylate (Cogentin) 0.5 mg DAILY PO 08/14/21 09:00 08/14/21 08:04 I have reviewed the current psychotropics carefully including drug interactions. Risk benefit ratio favors no change other than as noted in my dictated progress note. Diagnosis: Problems: (1) Schizophrenia, chronic with acute exacerbation (2) Schizoaffective disorder, bipolar type (3) Impulse control disorder, unspecified (4) Mild cognitive impairment (5) Anxiety disorder, unspecified (6) Schizophrenia, paranoid, chronic with acute exacerbation (7) Bipolar disorder, current episode mixed, severe, with psychotic features PATRIC DAVIS MD Aug 14, 2021 11:46
--- NOTE | 2021-08-14 12:07 | PDOC ---
Exam Note: Florencio Note: This note is a late entry for 08/13/2021 covers elements not covered in my initial note. Subjective: The patient was reviewed at treatment team meeting individually in the morning on 08/13/2021 with Sofie Abdi, Laurie Light, and Irena Herrera (social media marketing analyst), Floridalma, activity therapy, and Radha SIMON, discussed and reviewed the chart. We reviewed the patients history, diagnoses, treatment prognosis at some length. Patients ladonna Moy attended the treatment team meeting. Apparently her dysarthria and mouth movements happened in the last few years and according to the history appeared to be initiated by treatment on Haldol, which is now listed as an allergy. We will go ahead and add Cogentin 0.5 mg daily to help with some of this and also have a Neurology consult with Dr. Davidson for clarification on this and speech consult as requested by the family. She did sleep poorly last night and frequently up and night. Received trazodone x2. Average sleep 5 hours. Appetite 75% to 100%. She attended two groups in the past week. I met with her in her room. Review of Systems: Ambulation impaired, with walker. No CV, , pulmonary, eye system symptoms on review. Mental Status Exam: The patient is oriented to herself and situation. She has difficulty with speech. Abstraction fair. Computation impaired. Language function intact. No suicidal or homicidal ideation. Laboratory Data: Reviewed. Impression: Schizoaffective disorder, bipolar type, with psychotic features. Anxiety disorder unspecified. Impulse control disorder unspecified. Plan: We will continue current psychotropics mentioned in my initial note. Reviewed drug interactions, risk-benefit ratio. Neurology consult with Dr. Davidson and speech consult as above. We will start the trazodone. Adjust further as clinically indicated. Valproic acid level is therapeutic at 81, Risperdal has been increased to 1 mg daily for now. Assessment: Vital Signs/I&O: Vital Signs Date Time Temp Pulse Resp B/P (MAP) Pulse Ox O2 Delivery O2 Flow Rate FiO2 08/14/21 06:02 97.9 53 16 116/49 (71) 92 08/13/21 05:53 Room Air I & O 0 08/13/21 08/13/21 08/14/21 15:00 23:00 07:00 Intake Total 240 ml 240 ml Output Total 1 ml Balance 240 ml 239 ml Current Medications: Meds: Current Medications Medications (Trade) Dose Ordered Sig/Dawit Route PRN Reason Start Time Stop Time Status Last Admin Dose Admin Benztropine Mesylate (Cogentin) 0.5 mg DAILY PO 08/14/21 09:00 08/14/21 08:04 I have reviewed the current psychotropics carefully including drug interactions. Risk benefit ratio favors no change other than as noted in my dictated progress note. Diagnosis: Problems: (1) Schizoaffective disorder, bipolar type (2) Impulse control disorder, unspecified (3) Mild cognitive impairment (4) Anxiety disorder, unspecified (5) Schizophrenia, paranoid, chronic with acute exacerbation (6) Bipolar disorder, current episode mixed, severe, with psychotic features PATRIC DAVIS MD Aug 14, 2021 12:07
[2021-08-14 15:44] VITALS: BP 136/59
[2021-08-14 16:42] LABS: CLARITY,URINE CLEAR; COLOR,URINE YELLOW; GLUCOSE,URINE NEG (NEG); NITRITE,URINE NEG (NEG); UROBILINOGEN,URINE 0.2 mg/dL (0.2 mg/dL)
[2021-08-14 16:43] LABS: BACTERIA,URINE 0 /HPF (0-FEW); RBC,URINE RARE /HPF (0-2); WBC,URINE OCC /HPF (0-4)
--- NOTE | 2021-08-14 16:51 | NUR ---
Pt remains in her room most of the shift. She's withdrawn, and believes she'll be leaving for home tonight and numerous times requested her coat brought to her. She refused to show her dressing on both hips to be assessed, but was compliant with meals and medications. Will continue to monitor for safety.
[2021-08-14] MEDS: DIVALPROEX ER 250 MG TAB.ER.24H. PO SCH (20:37)
[2021-08-14] MEDS: risperiDONE 1 MG TABLET. PO SCH (20:37)
[2021-08-14] MEDS: DIVALPROEX ER 500 MG TAB.ER.24H PO SCH (20:37)
[2021-08-14] MEDS: ALPRAZolam 0.5 MG TABLET PO SCH (20:38)
--- NOTE | 2021-08-14 21:21 | PDOC ---
Exam Note: Florencio Note: Please also refer to the separate dictated note~for this date of service dictated separately.~Patient seen individually. Discussed the patient with Nursing staff reviewed the chart.~Reviewed interim history and current functioning. Reviewed vital signs,~Labs/ Radiology~and current medications noted below. Continue current treatment with the changes noted in the dictated addendum note Assessment: Vital Signs/I&O: Vital Signs Date Time Temp Pulse Resp B/P (MAP) Pulse Ox O2 Delivery O2 Flow Rate FiO2 08/14/21 15:44 97.8 54 18 136/59 (84) 98 08/13/21 05:53 Room Air I & O 08/13/21 08/13/21 08/14/21 14:59 22:59 06:59 Intake Total 240 ml 240 ml Output Total 1 ml Balance 240 ml 239 ml Labs: Laboratory Tests Test 08/14/21 13:15 Urine Collection Type Clean catch Urine Color Yellow Urine Clarity Clear Urine pH 6.5 Urine Specific [place] 1.020 Urine Protein Neg (NEG-TRACE) Urine Glucose (UA) Neg mg/dL (NEG) Urine Ketones (Stick) Neg mg/dL (NEG) Urine Blood Trace (NEG) Urine Nitrite Neg (NEG) Urine Bilirubin Neg (NEG) Urine Urobilinogen Dipstick 0.2 mg/dL (0.2 mg/dL) Urine Leukocyte Esterase Trace (NEG) Urine RBC Rare /HPF (0-2) Urine WBC Occ /HPF (0-4) Urine Squamous Epithelial Cells None /LPF Urine Bacteria 0 /HPF (0-FEW) Current Medications: Meds: Laboratory Tests Test 08/14/21 13:15 Urine Collection Type Clean catch Urine Color Yellow Urine Clarity Clear Urine pH 6.5 Urine Specific [place] 1.020 Urine Protein Neg Urine Glucose (UA) Neg mg/dL Urine Ketones (Stick) Neg mg/dL Urine Blood Trace Urine Nitrite Neg Urine Bilirubin Neg Urine Urobilinogen Dipstick 0.2 mg/dL Urine Leukocyte Esterase Trace Urine RBC Rare /HPF Urine WBC Occ /HPF Urine Squamous Epithelial Cells None /LPF Urine Bacteria 0 /HPF Current Medications Medications (Trade) Dose Ordered Sig/Dawit Route PRN Reason Start Time Stop Time Status Last Admin Dose Admin Acetaminophen (Tylenol) 650 mg PRN Q6HRS PRN PO MILD PAIN / TEMP > 100.3'F 07/29/21 16:15 08/05/21 03:07 Multi-Ingredient Ointment (Analgesic [place]) 1 paulo PRN QID PRN TP MUSCLE PAIN 07/29/21 16:15 Al Hydroxide/Mg Hydroxide (Mylanta Plus Xs) 15 ml PRN AFTMEALHC PRN PO DYSPEPSIA 07/29/21 16:15 Magnesium Hydroxide (Milk Of Magnesia) 2,400 mg PRN QHS PRN PO CONSTIPATION 07/29/21 16:15 Aripiprazole (Abilify) 15 mg DAILY PO 07/30/21 09:00 08/03/21 18:42 DC 08/03/21 08:43 Nystatin (Nystop) 1 paulo PRN BID PRN TP RASH 07/29/21 16:15 08/03/21 10:30 Alprazolam (Xanax) 1 mg HS PO 07/29/21 21:00 08/14/21 20:38 Zinc Acetate/ Diphenhydramine (Benadryl Topical) 1 paulo PRN TID PRN TP ITCHY SKIN 07/29/21 16:30 Vitamin D (Vitamin D3) 50,000 unit WEEKLY PO 08/02/21 09:00 08/09/21 08:48 Multivitamins/ Calcium (Thera-M Plus) 1 tab DAILY PO 07/30/21 09:00 08/14/21 08:04 Olanzapine (ZyPREXA ZYDIS) 2.5 mg PRN Q2HR PRN PO PSYCHOSIS 07/30/21 11:15 08/13/21 21:05 Trazodone HCl (Desyrel) 50 mg PRN QHS PRN PO INSOMNIA, MAY REPEAT X1 07/30/21 11:15 08/01/21 12:48 DC 07/30/21 20:41 Divalproex Sodium (Depakote Er) 500 mg QHS PO 07/31/21 21:00 08/03/21 18:58 DC 08/02/21 20:01 Levofloxacin (Levaquin) 250 mg DAILY06 PO 08/02/21 06:00 08/06/21 23:00 DC 08/06/21 06:28 Lactobacillus Rhamnosus (Culturelle) 1 cap BID PO 08/03/21 09:00 08/14/21 20:37 Risperidone (RisperDAL) 0.5 mg QHS PO 08/03/21 21:00 08/12/21 17:27 DC 08/11/21 20:30 Divalproex Sodium (Depakote Er) 250 mg HS PO 08/03/21 21:00 08/14/21 20:37 Divalproex Sodium (Depakote Er) 500 mg HS PO 08/03/21 21:00 08/14/21 20:37 Risperidone (RisperDAL) 1 mg QHS PO 08/12/21 21:00 08/14/21 20:37 Trazodone HCl (Desyrel) 50 mg PRN QHS PRN PO INSOMNIA, MAY REPEAT X1 08/12/21 17:30 08/13/21 21:01 Benztropine Mesylate (Cogentin) 0.5 mg DAILY PO 08/14/21 09:00 08/14/21 08:04 Current Medications Medications (Trade) Dose Ordered Sig/Dawit Route PRN Reason Start Time Stop Time Status Last Admin Dose Admin Benztropine Mesylate (Cogentin) 0.5 mg DAILY PO 08/14/21 09:00 08/14/21 08:04 I have reviewed the current psychotropics carefully including drug interactions. Risk benefit ratio favors no change other than as noted in my dictated progress note. Diagnosis: Problems: (1) Schizoaffective disorder, bipolar type (2) Impulse control disorder, unspecified (3) Mild cognitive impairment (4) Anxiety disorder, unspecified (5) Schizophrenia, paranoid, chronic with acute exacerbation (6) Bipolar disorder, current episode mixed, severe, with psychotic features PATRIC DAVIS MD Aug 14, 2021 21:21
--- NOTE | 2021-08-14 23:35 | NUR ---
Patient is located in her room on assumption of care, sitting in her chair. She is disorganized, confused, garbled speech. She is compliant with assessments and medications whole. Cooperative with HS care. She has voiced no delusions so far this shift. Denies any pain or discomfort. Patient appears to be sleeping comfortably at present time. Will continue to monitor.
[2021-08-15] MEDS: traZODone 50 MG TABLET. PO PRN (01:36)
--- NOTE | 2021-08-15 06:23 | PDOC ---
Exam Note: Florencio Note: This note is a late entry for 08/14/2021 covers elements not covered in my initial note. Subjective: The patient was seen individually on 08/14/2021, discussed and reviewed the chart with Vlad SIMON. The patient slept 6-3/4 hours previous night. She spends much time in her room, withdrawn, still has mouth movements, difficulty with speech, somewhat obsessive. I met with her in her room. She was talking to the nursing staff about wanting to be discharged. Review of Systems: Ambulation impaired, with walker. No CV, , pulmonary, eye system symptoms on review. Mental Status Exam: The patient is oriented to herself and situation. She was otherwise pleasant, verbal, interactive, smiling at me difficult to understand. She has difficulty with speech. Abstraction fair. Computation impaired. Language function intact. No suicidal or homicidal ideation. Laboratory Data: Reviewed. Impression: Schizoaffective disorder, bipolar type, with psychotic features. Anxiety disorder unspecified. Impulse control disorder unspecified. Plan: We will continue current psychotropics mentioned in my initial note. Reviewed drug interactions, risk-benefit ratio. Assessment: Vital Signs/I&O: Vital Signs Date Time Temp Pulse Resp B/P (MAP) Pulse Ox O2 Delivery O2 Flow Rate FiO2 08/14/21 15:44 97.8 54 18 136/59 (84) 98 08/13/21 05:53 Room Air I & O 08/14/21 08/14/21 08/15/21 15:00 23:00 07:00 Intake Total 360 ml 840 ml Balance 360 ml 840 ml Labs: Laboratory Tests Test 08/14/21 13:15 Urine Collection Type Clean catch Urine Color Yellow Urine Clarity Clear Urine pH 6.5 Urine Specific [place] 1.020 Urine Protein Neg (NEG-TRACE) Urine Glucose (UA) Neg mg/dL (NEG) Urine Ketones (Stick) Neg mg/dL (NEG) Urine Blood Trace (NEG) Urine Nitrite Neg (NEG) Urine Bilirubin Neg (NEG) Urine Urobilinogen Dipstick 0.2 mg/dL (0.2 mg/dL) Urine Leukocyte Esterase Trace (NEG) Urine RBC Rare /HPF (0-2) Urine WBC Occ /HPF (0-4) Urine Squamous Epithelial Cells None /LPF Urine Bacteria 0 /HPF (0-FEW) Current Medications: Meds: Current Medications Medications (Trade) Dose Ordered Sig/Dawit Route PRN Reason Start Time Stop Time Status Last Admin Dose Admin Benztropine Mesylate (Cogentin) 0.5 mg DAILY PO 08/14/21 09:00 08/14/21 08:04 I have reviewed the current psychotropics carefully including drug interactions. Risk benefit ratio favors no change other than as noted in my dictated progress note. Diagnosis: Problems: (1) Schizoaffective disorder, bipolar type (2) Impulse control disorder, unspecified (3) Mild cognitive impairment (4) Anxiety disorder, unspecified (5) Schizophrenia, paranoid, chronic with acute exacerbation (6) Bipolar disorder, current episode mixed, severe, with psychotic features PATRIC DAVIS MD Aug 15, 2021 06:23
[2021-08-15 06:40] VITALS: BP 124/67
[2021-08-15] MEDS: BENZTROPINE MESYLATE 0.5 MG TABLET PO SCH (08:37)
[2021-08-15] MEDS: LACTOBACILLUS RHAMNOSUS GG 1 CAPSULE. PO SCH ×2 (08:37→19:57)
[2021-08-15] MEDS: MULTIVITAMIN with MINERAL TABLET. PO SCH (08:37)
[2021-08-15 15:57] VITALS: BP 94/62
--- NOTE | 2021-08-15 17:36 | NUR ---
nsg Note; Sanam has been calm, cooperative and med compliant, taking her meds whole. She amb indep w/ walker and self toilets. though her speech is garbled, we can generally understand her but sometimes has to repeat herself. She has made no statements which are delusional or implying hallucinations. She has denied pain today. She stated she was not hungry for dinner so stayed in her room and was given an Ensure which she likes.
[2021-08-15] MEDS: risperiDONE 1 MG TABLET. PO SCH (19:57)
[2021-08-15] MEDS: DIVALPROEX ER 250 MG TAB.ER.24H. PO SCH (19:57)
[2021-08-15] MEDS: ALPRAZolam 0.5 MG TABLET PO SCH (19:58)
[2021-08-15] MEDS: DIVALPROEX ER 500 MG TAB.ER.24H PO SCH (19:58)
--- NOTE | 2021-08-15 22:19 | PDOC ---
Exam Note: Florencio Note: Please also refer to the separate dictated note~for this date of service dictated separately.~Patient seen individually. Discussed the patient with Nursing staff reviewed the chart.~Reviewed interim history and current functioning. Reviewed vital signs,~Labs/ Radiology~and current medications noted below. Continue current treatment with the changes noted in the dictated addendum note Assessment: Vital Signs/I&O: Vital Signs Date Time Temp Pulse Resp B/P (MAP) Pulse Ox O2 Delivery O2 Flow Rate FiO2 08/15/21 15:57 96.9 74 16 94/62 (73) 95 08/15/21 06:40 Room Air I & O 08/14/21 08/14/21 08/15/21 15:00 23:00 07:00 Intake Total 360 ml 840 ml Balance 360 ml 840 ml Current Medications: Meds: Current Medications Medications (Trade) Dose Ordered Sig/Dawit Route PRN Reason Start Time Stop Time Status Last Admin Dose Admin Acetaminophen (Tylenol) 650 mg PRN Q6HRS PRN PO MILD PAIN / TEMP > 100.3'F 07/29/21 16:15 08/05/21 03:07 Multi-Ingredient Ointment (Analgesic [place]) 1 paulo PRN QID PRN TP MUSCLE PAIN 07/29/21 16:15 Al Hydroxide/Mg Hydroxide (Mylanta Plus Xs) 15 ml PRN AFTMEALHC PRN PO DYSPEPSIA 07/29/21 16:15 Magnesium Hydroxide (Milk Of Magnesia) 2,400 mg PRN QHS PRN PO CONSTIPATION 07/29/21 16:15 Aripiprazole (Abilify) 15 mg DAILY PO 07/30/21 09:00 08/03/21 18:42 DC 08/03/21 08:43 Nystatin (Nystop) 1 paulo PRN BID PRN TP RASH 07/29/21 16:15 08/03/21 10:30 Alprazolam (Xanax) 1 mg HS PO 07/29/21 21:00 08/15/21 19:58 Zinc Acetate/ Diphenhydramine (Benadryl Topical) 1 paulo PRN TID PRN TP ITCHY SKIN 07/29/21 16:30 Vitamin D (Vitamin D3) 50,000 unit WEEKLY PO 08/02/21 09:00 08/09/21 08:48 Multivitamins/ Calcium (Thera-M Plus) 1 tab DAILY PO 07/30/21 09:00 08/15/21 08:37 Olanzapine (ZyPREXA ZYDIS) 2.5 mg PRN Q2HR PRN PO PSYCHOSIS 07/30/21 11:15 08/13/21 21:05 Trazodone HCl (Desyrel) 50 mg PRN QHS PRN PO INSOMNIA, MAY REPEAT X1 07/30/21 11:15 08/01/21 12:48 DC 07/30/21 20:41 Divalproex Sodium (Depakote Er) 500 mg QHS PO 07/31/21 21:00 08/03/21 18:58 DC 08/02/21 20:01 Levofloxacin (Levaquin) 250 mg DAILY06 PO 08/02/21 06:00 08/06/21 23:00 DC 08/06/21 06:28 Lactobacillus Rhamnosus (Culturelle) 1 cap BID PO 08/03/21 09:00 08/15/21 19:57 Risperidone (RisperDAL) 0.5 mg QHS PO 08/03/21 21:00 08/12/21 17:27 DC 08/11/21 20:30 Divalproex Sodium (Depakote Er) 250 mg HS PO 08/03/21 21:00 08/15/21 19:57 Divalproex Sodium (Depakote Er) 500 mg HS PO 08/03/21 21:00 08/15/21 19:58 Risperidone (RisperDAL) 1 mg QHS PO 08/12/21 21:00 08/15/21 19:57 Trazodone HCl (Desyrel) 50 mg PRN QHS PRN PO INSOMNIA, MAY REPEAT X1 08/12/21 17:30 08/15/21 01:36 Benztropine Mesylate (Cogentin) 0.5 mg DAILY PO 08/14/21 09:00 08/15/21 08:37 I have reviewed the current psychotropics carefully including drug interactions. Risk benefit ratio favors no change other than as noted in my dictated progress note. Diagnosis: Problems: (1) Schizoaffective disorder, bipolar type (2) Impulse control disorder, unspecified (3) Mild cognitive impairment (4) Anxiety disorder, unspecified (5) Schizophrenia, paranoid, chronic with acute exacerbation (6) Bipolar disorder, current episode mixed, severe, with psychotic features PATRIC DAVIS MD Aug 15, 2021 22:19
[2021-08-16 06:09] VITALS: BP 126/66
[2021-08-16 08:14] LABS: BASO # 0.1 x10^3/uL (0.0-0.2); BASO % 1 % (0-3); EOS # 0.3 x10^3/uL (0.0-0.7); EOS % 6 % (0-3); HEMATOCRIT 37.7 % (36.0-47.0); HEMOGLOBIN 12.5 g/dL (12.0-15.5); LYMPH # 1.6 x10^3/uL (1.0-4.8); LYMPH % 31 % (24-48); MEAN CORPUSCULAR HEMOGLOBIN 30 pg (25-35); MEAN CORPUSCULAR HGB CONC 33 g/dL (31-37); MEAN CORPUSCULAR VOLUME 92 fL (79-100); MONO # 0.5 x10^3/uL (0.0-1.1); MONO % 9 % (0-9); NEUT # 2.8 x10^3uL (1.8-7.7); NEUT % 54 % (31-73); PLATELET COUNT 258 x10^3/uL (140-400); RED BLOOD COUNT 4.11 x10^6/uL (3.50-5.40); RED CELL DISTRIBUTION WIDTH 15.2 % (11.5-14.5); WHITE BLOOD COUNT 5.2 x10^3/uL (4.0-11.0)
[2021-08-16] MEDS: LACTOBACILLUS RHAMNOSUS GG 1 CAPSULE. PO SCH ×2 (08:24→20:39)
[2021-08-16] MEDS: BENZTROPINE MESYLATE 0.5 MG TABLET PO SCH (08:24)
[2021-08-16] MEDS: MULTIVITAMIN with MINERAL TABLET. PO SCH (08:24)
[2021-08-16] MEDS: CHOLECALCIFEROL (VITAMIN D3) 50,000 UNIT CAPSULE PO SCH (08:24)
[2021-08-16 08:26] LABS: ALBUMIN 2.8 g/dL (3.4-5.0); ALBUMIN/GLOBULIN RATIO 0.8 (1.0-1.7); CALCIUM 9.4 mg/dL (8.5-10.1); CREATININE 0.6 mg/dL (0.6-1.0); GFR 96.4; POTASSIUM 3.9 mmol/L (3.5-5.1); TOTAL BILIRUBIN 0.4 mg/dL (0.2-1.0); TOTAL PROTEIN 6.2 g/dL (6.4-8.2)
[2021-08-16 08:42] LABS: VAL ACID 74 mcg/mL (50-100)
--- NOTE | 2021-08-16 10:52 | NUR ---
Nursing note, PT in chair, sitting in day room for breakfast. Morning assessments done. PT was able to take medications whole and was complaint. PT verbalized no pain.
[2021-08-16 16:41] VITALS: BP 118/69
[2021-08-16] MEDS: risperiDONE 1 MG TABLET. PO SCH (20:38)
[2021-08-16] MEDS: DIVALPROEX ER 250 MG TAB.ER.24H. PO SCH (20:40)
[2021-08-16] MEDS: ALPRAZolam 0.5 MG TABLET PO SCH (20:41)
[2021-08-16] MEDS: DIVALPROEX ER 500 MG TAB.ER.24H PO SCH (20:41)
--- NOTE | 2021-08-16 21:45 | PDOC ---
Exam Note: Florencio Note: Please also refer to the separate dictated note~for this date of service dictated separately.~Patient seen individually. Discussed the patient with Nursing staff reviewed the chart.~Reviewed interim history and current functioning. Reviewed vital signs,~Labs/ Radiology~and current medications noted below. Continue current treatment with the changes noted in the dictated addendum note Assessment: Vital Signs/I&O: Vital Signs Date Time Temp Pulse Resp B/P (MAP) Pulse Ox O2 Delivery O2 Flow Rate FiO2 08/16/21 16:41 97.5 65 12 118/69 (85) 93 Room Air I & O 08/15/21 08/15/21 08/16/21 15:00 23:00 07:00 Intake Total 600 ml 360 ml Balance 600 ml 360 ml Labs: Laboratory Tests Test 08/16/21 07:50 White Blood Count 5.2 x10^3/uL (4.0-11.0) Red Blood Count 4.11 x10^6/uL (3.50-5.40) Hemoglobin 12.5 g/dL (12.0-15.5) Hematocrit 37.7 % (36.0-47.0) Mean Corpuscular Volume 92 fL (79-100) Mean Corpuscular Hemoglobin 30 pg (25-35) Mean Corpuscular Hemoglobin Concent 33 g/dL (31-37) Red Cell Distribution Width 15.2 % (11.5-14.5) H Platelet Count 258 x10^3/uL (140-400) Neutrophils (%) (Auto) 54 % (31-73) Lymphocytes (%) (Auto) 31 % (24-48) Monocytes (%) (Auto) 9 % (0-9) Eosinophils (%) (Auto) 6 % (0-3) H Basophils (%) (Auto) 1 % (0-3) Neutrophils # (Auto) 2.8 x10^3uL (1.8-7.7) Lymphocytes # (Auto) 1.6 x10^3/uL (1.0-4.8) Monocytes # (Auto) 0.5 x10^3/uL (0.0-1.1) Eosinophils # (Auto) 0.3 x10^3/uL (0.0-0.7) Basophils # (Auto) 0.1 x10^3/uL (0.0-0.2) Sodium Level 137 mmol/L (136-145) Potassium Level 3.9 mmol/L (3.5-5.1) Chloride Level 102 mmol/L (98-107) Carbon Dioxide Level 30 mmol/L (21-32) Anion Gap 5 (6-14) L Blood Urea Nitrogen 18 mg/dL (7-20) Creatinine 0.6 mg/dL (0.6-1.0) Estimated GFR (Cockcroft-Gault) 96.4 BUN/Creatinine Ratio 30 (6-20) H Glucose Level 80 mg/dL (70-99) Calcium Level 9.4 mg/dL (8.5-10.1) Total Bilirubin 0.4 mg/dL (0.2-1.0) Aspartate Amino Transferase (AST) 14 U/L (15-37) L Alanine Aminotransferase (ALT) 11 U/L (14-59) L Alkaline Phosphatase 65 U/L (46-116) Total Protein 6.2 g/dL (6.4-8.2) L Albumin 2.8 g/dL (3.4-5.0) L Albumin/Globulin Ratio 0.8 (1.0-1.7) L Valproic Acid Level 74 mcg/mL (50-100) Valproic Acid Last Dose Date 08/15/21 Valproic Acid Last Dose Time 2100 Current Medications: Meds: Laboratory Tests Test 08/16/21 07:50 White Blood Count 5.2 x10^3/uL Red Blood Count 4.11 x10^6/uL Hemoglobin 12.5 g/dL Hematocrit 37.7 % Mean Corpuscular Volume 92 fL Mean Corpuscular Hemoglobin 30 pg Mean Corpuscular Hemoglobin Concent 33 g/dL Red Cell Distribution Width 15.2 % Platelet Count 258 x10^3/uL Neutrophils (%) (Auto) 54 % Lymphocytes (%) (Auto) 31 % Monocytes (%) (Auto) 9 % Eosinophils (%) (Auto) 6 % Basophils (%) (Auto) 1 % Neutrophils # (Auto) 2.8 x10^3uL Lymphocytes # (Auto) 1.6 x10^3/uL Monocytes # (Auto) 0.5 x10^3/uL Eosinophils # (Auto) 0.3 x10^3/uL Basophils # (Auto) 0.1 x10^3/uL Sodium Level 137 mmol/L Potassium Level 3.9 mmol/L Chloride Level 102 mmol/L Carbon Dioxide Level 30 mmol/L Anion Gap 5 Blood Urea Nitrogen 18 mg/dL Creatinine 0.6 mg/dL Estimated GFR (Cockcroft-Gault) 96.4 BUN/Creatinine Ratio 30 Glucose Level 80 mg/dL Calcium Level 9.4 mg/dL Total Bilirubin 0.4 mg/dL Aspartate Amino Transf (AST/SGOT) 14 U/L Alanine Aminotransferase (ALT/SGPT) 11 U/L Alkaline Phosphatase 65 U/L Total Protein 6.2 g/dL Albumin 2.8 g/dL Albumin/Globulin Ratio 0.8 Valproic Acid (Depakene) Level 74 mcg/mL Valproic Acid Last Dose Date 08/15/21 Valproic Acid Last Dose Time 2100 Current Medications Medications (Trade) Dose Ordered Sig/Dawit Route PRN Reason Start Time Stop Time Status Last Admin Dose Admin Acetaminophen (Tylenol) 650 mg PRN Q6HRS PRN PO MILD PAIN / TEMP > 100.3'F 07/29/21 16:15 08/05/21 03:07 Multi-Ingredient Ointment (Analgesic [place]) 1 paulo PRN QID PRN TP MUSCLE PAIN 07/29/21 16:15 Al Hydroxide/Mg Hydroxide (Mylanta Plus Xs) 15 ml PRN AFTMEALHC PRN PO DYSPEPSIA 07/29/21 16:15 Magnesium Hydroxide (Milk Of Magnesia) 2,400 mg PRN QHS PRN PO CONSTIPATION 07/29/21 16:15 Aripiprazole (Abilify) 15 mg DAILY PO 07/30/21 09:00 08/03/21 18:42 DC 08/03/21 08:43 Nystatin (Nystop) 1 pualo PRN BID PRN TP RASH 07/29/21 16:15 08/03/21 10:30 Alprazolam (Xanax) 1 mg HS PO 07/29/21 21:00 08/16/21 20:41 Zinc Acetate/ Diphenhydramine (Benadryl Topical) 1 paulo PRN TID PRN TP ITCHY SKIN 07/29/21 16:30 Vitamin D (Vitamin D3) 50,000 unit WEEKLY PO 08/02/21 09:00 08/16/21 08:24 Multivitamins/ Calcium (Thera-M Plus) 1 tab DAILY PO 07/30/21 09:00 08/16/21 08:24 Olanzapine (ZyPREXA ZYDIS) 2.5 mg PRN Q2HR PRN PO PSYCHOSIS 07/30/21 11:15 08/13/21 21:05 Trazodone HCl (Desyrel) 50 mg PRN QHS PRN PO INSOMNIA, MAY REPEAT X1 07/30/21 11:15 08/01/21 12:48 DC 07/30/21 20:41 Divalproex Sodium (Depakote Er) 500 mg QHS PO 07/31/21 21:00 08/03/21 18:58 DC 08/02/21 20:01 Levofloxacin (Levaquin) 250 mg DAILY06 PO 08/02/21 06:00 08/06/21 23:00 DC 08/06/21 06:28 Lactobacillus Rhamnosus (Culturelle) 1 cap BID PO 08/03/21 09:00 08/16/21 20:39 Risperidone (RisperDAL) 0.5 mg QHS PO 08/03/21 21:00 08/12/21 17:27 DC 08/11/21 20:30 Divalproex Sodium (Depakote Er) 250 mg HS PO 08/03/21 21:00 08/16/21 20:40 Divalproex Sodium (Depakote Er) 500 mg HS PO 08/03/21 21:00 08/16/21 20:41 Risperidone (RisperDAL) 1 mg QHS PO 08/12/21 21:00 08/16/21 20:38 Trazodone HCl (Desyrel) 50 mg PRN QHS PRN PO INSOMNIA, MAY REPEAT X1 08/12/21 17:30 08/15/21 01:36 Benztropine Mesylate (Cogentin) 0.5 mg DAILY PO 08/14/21 09:00 08/16/21 08:24 I have reviewed the current psychotropics carefully including drug interactions. Risk benefit ratio favors no change other than as noted in my dictated progress note. Diagnosis: Problems: (1) Schizoaffective disorder, bipolar type (2) Impulse control disorder, unspecified (3) Mild cognitive impairment (4) Anxiety disorder, unspecified (5) Schizophrenia, paranoid, chronic with acute exacerbation (6) Bipolar disorder, current episode mixed, severe, with psychotic features PATRIC DAVIS MD Aug 16, 2021 21:45
[2021-08-17] MEDS: traZODone 50 MG TABLET. PO PRN (01:01)
--- NOTE | 2021-08-17 01:30 | CONS ---
DATE OF CONSULTATION: 08/13/2021 NEUROLOGY CONSULT REFERRING PHYSICIAN: Dr. Muñoz. REASON FOR CONSULTATION: Difficulty to speak. HISTORY OF PRESENT ILLNESS: This is a 70-year-old right-handed female who was admitted to [facility] on 07/29/2021 on account of exacerbation of her schizophrenia, depressions, anxiety, and intermittent psychosis. The patient was initially admitted after she was referred by her primary care physician due to being paranoid, schizophrenic with paranoid along with delusional behavior and thinking. Neuro consult was requested because the patient has had longstanding history of dysarthria and difficulty to speak. It was reported that the patient hearing voices and using sharpy to write on her cloth. Finally, she packed her clothes and wanted to leave the house, which she share herself with her . It was reported that the patient has been hiding knives. The etiology of her dysarthria is unknown. The patient denies having stroke. Initial nonenhanced head CT scan performed on 07/30/2021 revealed no evidence of acute intracranial process, but it shows to have small vessel ischemic changes. The patient denies headaches, visual disturbances, nausea, vomiting, chest pain, or shortness of breath. She has been seen by soap maker because of bradycardia. PAST MEDICAL HISTORY: Significant for dysarthria of unknown etiologies, frequent urinary tract infections, and vitamin D deficiency. PAST PSYCHIATRIC HISTORY: Positive for schizoaffective disorders, anxiety disorders, and intermittent psychosis. SOCIAL HISTORY: The patient lives with her at home. There is no history of smoking, alcohol drinking or illicit drug use. CURRENT MEDICATIONS: Cogentin 0.5 mg daily, risperidone 1 mg at bedtime, trazodone 50 mg p.r.n. for insomnia, Depakote 500 mg at bedtime and 250 mg at bedtime, vitamin D3 50,000 units weekly, olanzapine 2.5 mg p.r.n. for agitation and psychosis, multivitamins with calcium, alprazolam 1 mg at bedtime, and Tylenol p.r.n. ALLERGIES: HALOPERIDOL. PHYSICAL EXAMINATION: GENERAL: Well-developed, well-nourished female, in no acute distress. She weighs 65 kilos. VITAL SIGNS: Blood pressure 144/77, respiratory rate 20, pulse is 57, temperature 97.7, oxygen saturation is 98% on room air. HEENT: Normocephalic, atraumatic, otherwise unremarkable. NECK: Supple. Negative for carotid bruit, lymphadenopathy or thyromegaly. LUNGS: Clear to A and P. CARDIOVASCULAR: Regular rate and rhythm, normal S1, S2. There is no S3, S4 or murmur. ABDOMEN: Soft. Bowel sounds positive. No palpable mass, organomegaly, or tenderness. EXTREMITIES: Negative for cyanosis, clubbing, or pedal edema. NEUROLOGIC: Mental status: The patient is dysarthric and difficulty to articulate. SPEECH: There is no apparent language dysfunctions. Memory, judgment and abstracting thinking are fair. The patient denies hallucination or delusion. Cranial nerves: Visual oshea appeared to be intact. Pupils are reactive to light and accommodation. The extraocular movements are intact. There is no nystagmus. There is no facial motor or sensory deficit. Hearing appears to be slightly diminished bilaterally. The palate is elevated symmetrically. Sternocleidomastoid muscles are powerful bilaterally. The patient's shrugs and shoulders symmetrically protrudes. Her tongue in the midline without fasciculation or atrophy. Motor Exam: No focal muscle bulk wasting. The tone is normal. The strength is 4/5 throughout. Sensory examination revealed a normal pinprick and light touch senses throughout. Deep tendon reflexes were symmetric and hypoactive without pathologic responses. Gait: The patient uses a walker for ambulation; however, she was able to move a few steps without a walker in the room. LABORATORY DATA: From 08/09/2021 revealed white blood cells of 5000, , hemoglobin 12.3, hematocrit 36.9, platelet count is 225,000. Chemistry reveals sodium 135, potassium 3.8, chloride 100, CO2 of 25, BUN 14, creatinine 0.7, and glucose 92. Ammonia level is less than 10. Urinalysis, large urinary leukocyte esterase with elevated white blood cells and many bacteria. Valproic acid is 81 on 08/06/2021. Serologically, COVID PCR not detected. IMPRESSION: 1. Severe dysarthria of unknown etiology, probably due to some psychotropic medications. No evidence of acute or chronic stroke. The patient's head CT scan, however, shows small vessel ischemic changes. 2. Bradycardia. The patient was seen by soap maker, could be related to medications side effects as well. 3. Urinary tract infections. 4. Multiple psychiatric problems include schizophrenia and possible schizoaffective disorders, presented with visual hallucinations, depressions, possible early dementia, anxiety disorders, and intermittent psychosis. RECOMMENDATIONS: 1. We will add baby aspirin 81 mg p.o. daily. 2. Treat the underlying urinary tract infections. 3. Continue with current medical and psychiatric care. CORDELL/KIMO DR: Perico TID: [id number]
[2021-08-17 06:28] VITALS: BP 145/85
--- NOTE | 2021-08-17 08:02 | PDOC ---
Exam Note: Florencio Note: This note is a late entry for 08/15/2021 covers elements not covered in my initial note. Subjective: The patient was seen individually on 08/15/2021, discussed and reviewed the chart with Chris SIMON. The patient slept 6 hours previous night. She is withdrawn, still has mouth movements, difficulty with speech, somewhat obsessive. Speech is word salad. Dr. Davidson saw her in Neurology consult. UA has reflex to culture. We will defer to Dr. Bedoya to treat as indicated. No hallucinations. Review of Systems: Ambulation impaired, with walker. No CV, , pulmonary, eye system symptoms on review. Mental Status Exam: The patient is oriented to herself and situation. Speech somewhat difficult to understand, unchanged from before. I met with her in her room. Abstraction fair. Computation impaired. Language function intact. No suicidal or homicidal ideation. Laboratory Data: Reviewed. Impression: Schizoaffective disorder, bipolar type, with psychotic features. Anxiety disorder unspecified. Impulse control disorder unspecified. Plan: We will continue current psychotropics mentioned in my initial note. Reviewed drug interactions, risk-benefit ratio. We will treat the UTI, defer to Dr. Bedoya. Speech therapy consult has been requested. Assessment: Vital Signs/I&O: Vital Signs Date Time Temp Pulse Resp B/P (MAP) Pulse Ox O2 Delivery O2 Flow Rate FiO2 08/17/21 06:28 97.7 70 16 145/85 (105) 98 08/16/21 16:41 Room Air I & O 08/16/21 08/16/21 08/17/21 15:00 23:00 07:00 Intake Total 360 ml 120 ml Balance 360 ml 120 ml Current Medications: I have reviewed the current psychotropics carefully including drug interactions. Risk benefit ratio favors no change other than as noted in my dictated progress note. Diagnosis: Problems: (1) Schizoaffective disorder, bipolar type (2) Impulse control disorder, unspecified (3) Mild cognitive impairment (4) Anxiety disorder, unspecified (5) Schizophrenia, paranoid, chronic with acute exacerbation (6) Bipolar disorder, current episode mixed, severe, with psychotic features PATRIC DAVIS MD Aug 17, 2021 08:02
[2021-08-17] MEDS: BENZTROPINE MESYLATE 0.5 MG TABLET PO SCH (08:19)
[2021-08-17] MEDS: LACTOBACILLUS RHAMNOSUS GG 1 CAPSULE. PO SCH ×2 (08:19→20:17)
[2021-08-17] MEDS: MULTIVITAMIN with MINERAL TABLET. PO SCH (08:19)
--- NOTE | 2021-08-17 08:23 | PDOC ---
Exam Note: Florencio Note: This note is a late entry for 08/16/2021 covers elements not covered in my initial note. Subjective: The patient was seen individually on 08/16/2021, discussed and reviewed the chart with Chris SIMON. The patient slept 8-1/2 hours previous night. I met with her in her room. She is compliant with medications. She came out for breakfast. Appetite is fair. Speech remains garbled. Review of Systems: Ambulation impaired, with walker. No CV, , pulmonary, eye system symptoms on review. Mental Status Exam: The patient is oriented to herself and situation. She had a sense of humor. She had a water bottle, lying on the side of her bed, which was tipping over and when I pointed this out and assisted with it she became quite animated, very appreciative though she remains somewhat embarrassed due to her speech problems/dysarthria. Abstraction fair. Computation impaired. Language function intact. No suicidal or homicidal ideation. Laboratory Data: Reviewed. Impression: Schizoaffective disorder, bipolar type, with psychotic features. Anxiety disorder unspecified. Impulse control disorder unspecified. Plan: We will continue current psychotropics mentioned in my initial note. Rev iewed drug interactions, risk-benefit ratio. Assessment: Vital Signs/I&O: Vital Signs Date Time Temp Pulse Resp B/P (MAP) Pulse Ox O2 Delivery O2 Flow Rate FiO2 08/17/21 06:28 97.7 70 16 145/85 (105) 98 08/16/21 16:41 Room Air I & O 08/16/21 08/16/21 08/17/21 15:00 23:00 07:00 Intake Total 360 ml 120 ml Balance 360 ml 120 ml Current Medications: I have reviewed the current psychotropics carefully including drug interactions. Risk benefit ratio favors no change other than as noted in my dictated progress note. Diagnosis: Problems: (1) Schizoaffective disorder, bipolar type (2) Impulse control disorder, unspecified (3) Mild cognitive impairment (4) Anxiety disorder, unspecified (5) Schizophrenia, paranoid, chronic with acute exacerbation (6) Bipolar disorder, current episode mixed, severe, with psychotic features PATRIC DAVIS MD Aug 17, 2021 08:23
--- NOTE | 2021-08-17 14:35 | NUR ---
SW met with pt eddirMichelle and facility DON, Maura, to complete assessment on if they will be able to accept pt. Pt was very happy and talkative with Maura. Pt did note that she was ready to go and all parties informed her that she would be able to leave the hospital soon. Pt did tell her daughter that she threw up her lunch and had some of it on her shirt. Michelle noted that she spoke to the DISCHARGE PLANNER on Tuesday and explained that there wasn't anything overtly causing the episodes, but would like to see if pt would be better with more ground meat versus "chunks of food that she isn't processing as well". SW will follow up on this.
[2021-08-17 15:44] VITALS: BP 131/73
--- NOTE | 2021-08-17 15:50 | NUR ---
Nursing note: Patient in dinning room for assessment & medication. She is compliant with medications taken whole. She is A/O X3, unable to report situation. She denies pain/discomfort at this time. Patient is very garbled when she speaks making it hard to understand her. She is calm, withdrawn, & cooperative. She ambulates with walker, can be unsteady at times. She is currently resting in bed with eyes closed. Will continue to monitor.
[2021-08-17] MEDS: DIVALPROEX ER 250 MG TAB.ER.24H. PO SCH (20:16)
[2021-08-17] MEDS: DIVALPROEX ER 500 MG TAB.ER.24H PO SCH (20:16)
[2021-08-17] MEDS: risperiDONE 1 MG TABLET. PO SCH (20:17)
[2021-08-17] MEDS: ALPRAZolam 0.5 MG TABLET PO SCH (20:20)
--- NOTE | 2021-08-17 21:48 | PDOC ---
Exam Note: Florencio Note: Please also refer to the separate dictated note~for this date of service dictated separately.~Patient seen individually. Discussed the patient with Nursing staff reviewed the chart.~Reviewed interim history and current functioning. Reviewed vital signs,~Labs/ Radiology~and current medications noted below. Continue current treatment with the changes noted in the dictated addendum note Assessment: Vital Signs/I&O: Vital Signs Date Time Temp Pulse Resp B/P (MAP) Pulse Ox O2 Delivery O2 Flow Rate FiO2 08/17/21 15:44 97.5 54 16 131/73 (92) 98 08/16/21 16:41 Room Air I & O 08/16/21 08/16/21 08/17/21 15:00 23:00 07:00 Intake Total 360 ml 120 ml Balance 360 ml 120 ml Current Medications: Meds: Current Medications Medications (Trade) Dose Ordered Sig/Dawit Route PRN Reason Start Time Stop Time Status Last Admin Dose Admin Acetaminophen (Tylenol) 650 mg PRN Q6HRS PRN PO MILD PAIN / TEMP > 100.3'F 07/29/21 16:15 08/05/21 03:07 Multi-Ingredient Ointment (Analgesic [place]) 1 paulo PRN QID PRN TP MUSCLE PAIN 07/29/21 16:15 Al Hydroxide/Mg Hydroxide (Mylanta Plus Xs) 15 ml PRN AFTMEALHC PRN PO DYSPEPSIA 07/29/21 16:15 Magnesium Hydroxide (Milk Of Magnesia) 2,400 mg PRN QHS PRN PO CONSTIPATION 07/29/21 16:15 Aripiprazole (Abilify) 15 mg DAILY PO 07/30/21 09:00 08/03/21 18:42 DC 08/03/21 08:43 Nystatin (Nystop) 1 paulo PRN BID PRN TP RASH 07/29/21 16:15 08/03/21 10:30 Alprazolam (Xanax) 1 mg HS PO 07/29/21 21:00 08/17/21 20:20 Zinc Acetate/ Diphenhydramine (Benadryl Topical) 1 paulo PRN TID PRN TP ITCHY SKIN 07/29/21 16:30 Vitamin D (Vitamin D3) 50,000 unit WEEKLY PO 08/02/21 09:00 08/16/21 08:24 Multivitamins/ Calcium (Thera-M Plus) 1 tab DAILY PO 07/30/21 09:00 08/17/21 08:19 Olanzapine (ZyPREXA ZYDIS) 2.5 mg PRN Q2HR PRN PO PSYCHOSIS 07/30/21 11:15 08/13/21 21:05 Trazodone HCl (Desyrel) 50 mg PRN QHS PRN PO INSOMNIA, MAY REPEAT X1 07/30/21 11:15 08/01/21 12:48 DC 07/30/21 20:41 Divalproex Sodium (Depakote Er) 500 mg QHS PO 07/31/21 21:00 08/03/21 18:58 DC 08/02/21 20:01 Levofloxacin (Levaquin) 250 mg DAILY06 PO 08/02/21 06:00 08/06/21 23:00 DC 08/06/21 06:28 Lactobacillus Rhamnosus (Culturelle) 1 cap BID PO 08/03/21 09:00 08/17/21 20:17 Risperidone (RisperDAL) 0.5 mg QHS PO 08/03/21 21:00 08/12/21 17:27 DC 08/11/21 20:30 Divalproex Sodium (Depakote Er) 250 mg HS PO 08/03/21 21:00 08/17/21 20:16 Divalproex Sodium (Depakote Er) 500 mg HS PO 08/03/21 21:00 08/17/21 20:16 Risperidone (RisperDAL) 1 mg QHS PO 08/12/21 21:00 08/17/21 20:17 Trazodone HCl (Desyrel) 50 mg PRN QHS PRN PO INSOMNIA, MAY REPEAT X1 08/12/21 17:30 08/17/21 01:01 Benztropine Mesylate (Cogentin) 0.5 mg DAILY PO 08/14/21 09:00 08/17/21 08:19 I have reviewed the current psychotropics carefully including drug interactions. Risk benefit ratio favors no change other than as noted in my dictated progress note. Diagnosis: Problems: (1) Schizoaffective disorder, bipolar type (2) Impulse control disorder, unspecified (3) Mild cognitive impairment (4) Anxiety disorder, unspecified (5) Schizophrenia, paranoid, chronic with acute exacerbation (6) Bipolar disorder, current episode mixed, severe, with psychotic features PATRIC DAVIS MD Aug 17, 2021 21:48
--- NOTE | 2021-08-18 02:19 | PN ---
DATE: 08/15/2021 SUBJECTIVE: The patient denies any new medical or neurological complaints. OBJECTIVE: GENERAL: A well-developed, well-nourished female in no acute distress. VITAL SIGNS: Blood pressure 124/67, respiratory rate 16, pulse is 60 and regular; temperature 97.9, oxygen saturation 96% on room air. HEENT: Normocephalic, atraumatic. Otherwise unremarkable. NECK: Supple, negative for carotid bruit, lymphadenopathy or thyromegaly. LUNGS: Clear to A and P. CARDIOVASCULAR: Regular rhythm. Normal S1, S2. There is no S3, S4 or murmur. ABDOMEN: Soft. Bowel sounds positive. EXTREMITIES: Negative for cyanosis, clubbing or pedal edema. NEUROLOGIC: Mental status: The patient is alert and oriented x 3. The speech is dysarthric and has difficult to form sentences due to dysarthria. Memory, judgment and abstract thinking are fair. The patient denies hallucination or delusion. Cranial nerves are intact. No focal motor or sensory deficit. The strength is 4/5 throughout. Sensory examination revealed normal pinprick and light touch senses throughout. Deep tendon reflexes were symmetric and hypoactive without pathologic responses. Gait: The patient uses a walker for ambulation, but able to walk without it. IMPRESSION: 1. Severe dysarthria of unknown etiology, probably due to some psychotropic medication side effects. A head CT scan without contrast revealed no acute intracranial process, but the small vessel ischemic changes. 2. Urinary tract infections. 3. Bradycardia -- resolved. 4. Multiple psychiatric problems including schizophrenia, depressions, anxiety disorders, and possible early dementia. RECOMMENDATIONS: 1. Continue with current medical and psychiatric care. 2. Continue with current medications. CORDELL/JENNIFER/AGUILA DR: Perico TID: [id number]
--- NOTE | 2021-08-18 06:04 | NUR ---
Pt in bed at shift change. Took HS meds without difficulty. Rested quietly during night.
[2021-08-18 06:11] VITALS: BP 152/65
--- NOTE | 2021-08-18 08:21 | PDOC ---
Exam Note: Florencio Note: This note is a late entry for 08/17/2021 covers elements not covered in my initial note. Subjective: The patient was seen individually on 08/17/2021, discussed and reviewed the chart with Kira SIMON. The patient slept 3-1/2 hours previous night. I met with her in her room. Overall she is less delusional today. Few days back she was talking about having been and did not know her last name which she indicated was not Pfaffly but today she was not paranoid, admitting that her last name was Pfaffly and that she was . She had some dysphagia around lunch time. We will defer to Dr. Bedoya/Dr. Dale. Rest of the day she has done well. I met with her in her room in the evening after she had finished dinner. Review of Systems: Ambulation impaired, with walker. No CV, , pulmonary, eye system symptoms on review. Mental Status Exam: The patient is oriented to herself and situation. Speech garbled. Abstraction fair. Computation impaired. Language function intact. Mood and affect improved. No suicidal or homicidal ideation. Laboratory Data: Reviewed. Impression: Schizoaffective disorder, bipolar type, with psychotic features. Anxiety disorder unspecified. Impulse control disorder unspecified. Plan: We will continue current psychotropics mentioned in my initial note. Reviewed drug interactions, risk-benefit ratio. Assessment: Vital Signs/I&O: Vital Signs Date Time Temp Pulse Resp B/P (MAP) Pulse Ox O2 Delivery O2 Flow Rate FiO2 08/18/21 06:11 97.9 58 20 152/65 (94) 97 Room Air I & O 08/17/21 08/17/21 08/18/21 15:00 23:00 07:00 Intake Total 720 ml 120 ml Balance 720 ml 120 ml Current Medications: I have reviewed the current psychotropics carefully including drug interactions. Risk benefit ratio favors no change other than as noted in my dictated progress note. Diagnosis: Problems: (1) Schizoaffective disorder, bipolar type (2) Impulse control disorder, unspecified (3) Mild cognitive impairment (4) Anxiety disorder, unspecified (5) Schizophrenia, paranoid, chronic with acute exacerbation (6) Bipolar disorder, current episode mixed, severe, with psychotic features PATRIC DAVIS MD Aug 18, 2021 08:21
[2021-08-18] MEDS: LACTOBACILLUS RHAMNOSUS GG 1 CAPSULE. PO SCH ×2 (08:23→20:54)
[2021-08-18] MEDS: MULTIVITAMIN with MINERAL TABLET. PO SCH (08:23)
[2021-08-18] MEDS: BENZTROPINE MESYLATE 0.5 MG TABLET PO SCH (08:23)
--- NOTE | 2021-08-18 14:29 | NUR ---
Nursing note: Patient in dinning room for assessment & medication. She is compliant with medications taken whole. She is A/O X3, unable to report situation. She denies pain/discomfort at this time. Patient is very garbled when she speaks making it hard to understand her. She is calm, withdrawn, & cooperative. She ambulates independently with walker, can be unsteady at times. She is currently sitting in chair in her room. Will continue to monitor.
[2021-08-18 16:02] VITALS: BP 141/51
[2021-08-18] MEDS: DIVALPROEX ER 250 MG TAB.ER.24H. PO SCH (20:53)
[2021-08-18] MEDS: ALPRAZolam 0.5 MG TABLET PO SCH (20:53)
[2021-08-18] MEDS: traZODone 50 MG TABLET. PO PRN (20:54)
[2021-08-18] MEDS: risperiDONE 1 MG TABLET. PO SCH (20:54)
[2021-08-18] MEDS: DIVALPROEX ER 500 MG TAB.ER.24H PO SCH (20:54)
--- NOTE | 2021-08-18 21:29 | PDOC ---
Exam Note: Florencio Note: Please also refer to the separate dictated note~for this date of service dictated separately.~Patient seen individually. Discussed the patient with Nursing staff reviewed the chart.~Reviewed interim history and current functioning. Reviewed vital signs,~Labs/ Radiology~and current medications noted below. Continue current treatment with the changes noted in the dictated addendum note Assessment: Vital Signs/I&O: Vital Signs Date Time Temp Pulse Resp B/P (MAP) Pulse Ox O2 Delivery O2 Flow Rate FiO2 08/18/21 16:02 98.3 45 20 141/51 (81) 100 08/18/21 06:11 Room Air I & O 08/17/21 08/17/21 08/18/21 15:00 23:00 07:00 Intake Total 720 ml 120 ml Balance 720 ml 120 ml Labs: Laboratory Tests Test 08/18/21 07:42 POC SARS CoV-2 Antigen Negative (NEGATIVE) Current Medications: Meds: Laboratory Tests Test 08/18/21 07:42 POC SARS CoV-2 Antigen Negative Current Medications Medications (Trade) Dose Ordered Sig/Dawit Route PRN Reason Start Time Stop Time Status Last Admin Dose Admin Acetaminophen (Tylenol) 650 mg PRN Q6HRS PRN PO MILD PAIN / TEMP > 100.3'F 07/29/21 16:15 08/05/21 03:07 Multi-Ingredient Ointment (Analgesic [place]) 1 paulo PRN QID PRN TP MUSCLE PAIN 07/29/21 16:15 Al Hydroxide/Mg Hydroxide (Mylanta Plus Xs) 15 ml PRN AFTMEALHC PRN PO DYSPEPSIA 07/29/21 16:15 Magnesium Hydroxide (Milk Of Magnesia) 2,400 mg PRN QHS PRN PO CONSTIPATION 07/29/21 16:15 Aripiprazole (Abilify) 15 mg DAILY PO 07/30/21 09:00 08/03/21 18:42 DC 08/03/21 08:43 Nystatin (Nystop) 1 paulo PRN BID PRN TP RASH 07/29/21 16:15 08/03/21 10:30 Alprazolam (Xanax) 1 mg HS PO 07/29/21 21:00 08/18/21 20:53 Zinc Acetate/ Diphenhydramine (Benadryl Topical) 1 paulo PRN TID PRN TP ITCHY SKIN 07/29/21 16:30 Vitamin D (Vitamin D3) 50,000 unit WEEKLY PO 08/02/21 09:00 08/16/21 08:24 Multivitamins/ Calcium (Thera-M Plus) 1 tab DAILY PO 07/30/21 09:00 08/18/21 08:23 Olanzapine (ZyPREXA ZYDIS) 2.5 mg PRN Q2HR PRN PO PSYCHOSIS 07/30/21 11:15 08/13/21 21:05 Trazodone HCl (Desyrel) 50 mg PRN QHS PRN PO INSOMNIA, MAY REPEAT X1 07/30/21 11:15 08/01/21 12:48 DC 07/30/21 20:41 Divalproex Sodium (Depakote Er) 500 mg QHS PO 07/31/21 21:00 08/03/21 18:58 DC 08/02/21 20:01 Levofloxacin (Levaquin) 250 mg DAILY06 PO 08/02/21 06:00 08/06/21 23:00 DC 08/06/21 06:28 Lactobacillus Rhamnosus (Culturelle) 1 cap BID PO 08/03/21 09:00 08/18/21 20:54 Risperidone (RisperDAL) 0.5 mg QHS PO 08/03/21 21:00 08/12/21 17:27 DC 08/11/21 20:30 Divalproex Sodium (Depakote Er) 250 mg HS PO 08/03/21 21:00 08/18/21 20:53 Divalproex Sodium (Depakote Er) 500 mg HS PO 08/03/21 21:00 08/18/21 20:54 Risperidone (RisperDAL) 1 mg QHS PO 08/12/21 21:00 08/18/21 20:54 Trazodone HCl (Desyrel) 50 mg PRN QHS PRN PO INSOMNIA, MAY REPEAT X1 08/12/21 17:30 08/18/21 20:54 Benztropine Mesylate (Cogentin) 0.5 mg DAILY PO 08/14/21 09:00 08/18/21 08:23 I have reviewed the current psychotropics carefully including drug interactions. Risk benefit ratio favors no change other than as noted in my dictated progress note. Diagnosis: Problems: (1) Schizoaffective disorder, bipolar type (2) Impulse control disorder, unspecified (3) Mild cognitive impairment (4) Anxiety disorder, unspecified (5) Schizophrenia, paranoid, chronic with acute exacerbation (6) Bipolar disorder, current episode mixed, severe, with psychotic features PATRIC DAVIS MD Aug 18, 2021 21:29
--- NOTE | 2021-08-19 00:58 | NUR ---
Pt withdrawn to room, lying in bed when approached. Pt confused, disorganized, and delusional. Pt cooperative with assessment, initially resistive with medications. Pt stated "It's against my samaritan to take drugs. I've been taking them for you guys but I'm not going to now." I attempted to educate her on the importance of medication compliance but she continued to refuse citing her orthodox beliefs. I re-approached pt after approx. 30 minutes and she compliantly took her medications whole. No further adverse behaviors thus far this shift.
[2021-08-19 06:07] VITALS: BP 110/69
--- NOTE | 2021-08-19 08:34 | PDOC ---
Exam Note: Florencio Note: This note is a late entry for 08/18/2021 covers elements not covered in my initial note. Subjective: The patient was seen individually on 08/18/2021, discussed and reviewed the chart with Kira SIMON. The patient slept 7 hours previous night. Per nursing report, yesterday the patient was less delusional stating that her last name was Ashlyn but today she is referring to herself with her maiden name stating her is . I questioned her on this individually in her room at some length this evening but she was not committal about it. She remains withdrawn to her room a lot but partly because of her social discomfort consequent to her dysarthria. Review of Systems: Difficulty with her speech due to dysarthria. Ambulation impaired, with walker. No CV, , pulmonary, eye system symptoms on review. Mental Status Exam: The patient is oriented to herself and situation. Speech is difficult to understand but she was still able to express herself. There was a window washer cleaning her window from the outside and she was quite amused seeing this and attempted to communicate quite actively about this. Abstraction fair. Computation impaired. Language function intact. Short term memory is impaired. No suicidal or homicidal ideation generally less paranoid other than what is noted by nursing report. Laboratory Data: Reviewed. Impression: Schizoaffective disorder, bipolar type, with psychotic features. Anxiety disorder unspecified. Impulse control disorder unspecified. Plan: We will continue current psychotropics mentioned in my initial note. Rev iewed drug interactions, risk-benefit ratio. Patient is on adequate amount of Risperdal. We will maintain 1 mg a day, Xanax on current dosage, Depakote level is therapeutic, Cogentin along with trazodone. Assessment: Vital Signs/I&O: Vital Signs Date Time Temp Pulse Resp B/P (MAP) Pulse Ox O2 Delivery O2 Flow Rate FiO2 08/19/21 06:07 97.5 54 16 110/69 (83) 95 Room Air I & O 08/18/21 08/18/21 08/19/21 15:00 23:00 07:00 Intake Total 480 ml 580 ml Balance 480 ml 580 ml Current Medications: I have reviewed the current psychotropics carefully including drug interactions. Risk benefit ratio favors no change other than as noted in my dictated progress note. Diagnosis: Problems: (1) Schizoaffective disorder, bipolar type (2) Impulse control disorder, unspecified (3) Mild cognitive impairment (4) Anxiety disorder, unspecified (5) Schizophrenia, paranoid, chronic with acute exacerbation (6) Bipolar disorder, current episode mixed, severe, with psychotic features PATRIC DAVIS MD Aug 19, 2021 08:34
[2021-08-19] MEDS: LACTOBACILLUS RHAMNOSUS GG 1 CAPSULE. PO SCH ×2 (09:40→20:31)
[2021-08-19] MEDS: BENZTROPINE MESYLATE 0.5 MG TABLET PO SCH (09:40)
[2021-08-19] MEDS: MULTIVITAMIN with MINERAL TABLET. PO SCH (09:40)
--- NOTE | 2021-08-19 12:26 | NUR ---
RN Day Shift Note: Pt presents with calm affect. Pt is medication compliant. Pt is low-khan on the unit. Pt is noted to be spending time in her room sitting quietly. Pt's vitals are within normal limits. Pt slept 8.5 hours last night. Will continue to monitor.
[2021-08-19 16:10] VITALS: BP 150/65
[2021-08-19] MEDS: ALPRAZolam 0.5 MG TABLET PO SCH (20:31)
[2021-08-19] MEDS: risperiDONE 1 MG TABLET. PO SCH (20:32)
[2021-08-19] MEDS: DIVALPROEX ER 500 MG TAB.ER.24H PO SCH (20:32)
[2021-08-19] MEDS: DIVALPROEX ER 250 MG TAB.ER.24H. PO SCH (20:32)
--- NOTE | 2021-08-19 21:36 | PDOC ---
Exam Note: Florencio Note: Please also refer to the separate dictated note~for this date of service dictated separately.~Patient seen individually. Discussed the patient with Nursing staff reviewed the chart.~Reviewed interim history and current functioning. Reviewed vital signs,~Labs/ Radiology~and current medications noted below. Continue current treatment with the changes noted in the dictated addendum note Assessment: Vital Signs/I&O: Vital Signs Date Time Temp Pulse Resp B/P (MAP) Pulse Ox O2 Delivery O2 Flow Rate FiO2 08/19/21 16:10 98.6 60 18 150/65 (93) 95 08/19/21 06:07 Room Air I & O 08/18/21 08/18/21 08/19/21 15:00 23:00 07:00 Intake Total 480 ml 580 ml Balance 480 ml 580 ml Current Medications: Meds: Current Medications Medications (Trade) Dose Ordered Sig/Dawit Route PRN Reason Start Time Stop Time Status Last Admin Dose Admin Acetaminophen (Tylenol) 650 mg PRN Q6HRS PRN PO MILD PAIN / TEMP > 100.3'F 07/29/21 16:15 08/05/21 03:07 Multi-Ingredient Ointment (Analgesic [place]) 1 paulo PRN QID PRN TP MUSCLE PAIN 07/29/21 16:15 Al Hydroxide/Mg Hydroxide (Mylanta Plus Xs) 15 ml PRN AFTMEALHC PRN PO DYSPEPSIA 07/29/21 16:15 Magnesium Hydroxide (Milk Of Magnesia) 2,400 mg PRN QHS PRN PO CONSTIPATION 07/29/21 16:15 Aripiprazole (Abilify) 15 mg DAILY PO 07/30/21 09:00 08/03/21 18:42 DC 08/03/21 08:43 Nystatin (Nystop) 1 paulo PRN BID PRN TP RASH 07/29/21 16:15 08/03/21 10:30 Alprazolam (Xanax) 1 mg HS PO 07/29/21 21:00 08/19/21 20:31 Zinc Acetate/ Diphenhydramine (Benadryl Topical) 1 paulo PRN TID PRN TP ITCHY SKIN 07/29/21 16:30 Vitamin D (Vitamin D3) 50,000 unit WEEKLY PO 08/02/21 09:00 08/16/21 08:24 Multivitamins/ Calcium (Thera-M Plus) 1 tab DAILY PO 07/30/21 09:00 08/19/21 09:40 Olanzapine (ZyPREXA ZYDIS) 2.5 mg PRN Q2HR PRN PO PSYCHOSIS 07/30/21 11:15 08/13/21 21:05 Trazodone HCl (Desyrel) 50 mg PRN QHS PRN PO INSOMNIA, MAY REPEAT X1 07/30/21 11:15 08/01/21 12:48 DC 07/30/21 20:41 Divalproex Sodium (Depakote Er) 500 mg QHS PO 07/31/21 21:00 08/03/21 18:58 DC 08/02/21 20:01 Levofloxacin (Levaquin) 250 mg DAILY06 PO 08/02/21 06:00 08/06/21 23:00 DC 08/06/21 06:28 Lactobacillus Rhamnosus (Culturelle) 1 cap BID PO 08/03/21 09:00 08/19/21 20:31 Risperidone (RisperDAL) 0.5 mg QHS PO 08/03/21 21:00 08/12/21 17:27 DC 08/11/21 20:30 Divalproex Sodium (Depakote Er) 250 mg HS PO 08/03/21 21:00 08/19/21 20:32 Divalproex Sodium (Depakote Er) 500 mg HS PO 08/03/21 21:00 08/19/21 20:32 Risperidone (RisperDAL) 1 mg QHS PO 08/12/21 21:00 08/19/21 20:32 Trazodone HCl (Desyrel) 50 mg PRN QHS PRN PO INSOMNIA, MAY REPEAT X1 08/12/21 17:30 08/18/21 20:54 Benztropine Mesylate (Cogentin) 0.5 mg DAILY PO 08/14/21 09:00 08/19/21 09:40 I have reviewed the current psychotropics carefully including drug interactions. Risk benefit ratio favors no change other than as noted in my dictated progress note. Diagnosis: Problems: (1) Schizoaffective disorder, bipolar type (2) Impulse control disorder, unspecified (3) Mild cognitive impairment (4) Anxiety disorder, unspecified (5) Schizophrenia, paranoid, chronic with acute exacerbation (6) Bipolar disorder, current episode mixed, severe, with psychotic features PATRIC DAVIS MD Aug 19, 2021 21:36
--- NOTE | 2021-08-20 05:25 | NUR ---
Pt was resistive in shower last pm. Aftr wards she went to bed and has been sleeping. Meds were crushed in pudding. Addendum: 08/20/21 at 0535 by EMILY KAPOOR RN Above note meant for another chart.
--- NOTE | 2021-08-20 05:35 | NUR ---
Last evening pt was in hr room reading before going to bed. She has been pleasant and cooperative with staff and has had no behaviors. Meds were taken whole without difficulty. This morning she is sitting quietly in day room with peers.
[2021-08-20 06:05] VITALS: BP 142/56
[2021-08-20] MEDS: LACTOBACILLUS RHAMNOSUS GG 1 CAPSULE. PO SCH ×2 (08:06→20:38)
[2021-08-20] MEDS: BENZTROPINE MESYLATE 0.5 MG TABLET PO SCH (08:06)
[2021-08-20] MEDS: MULTIVITAMIN with MINERAL TABLET. PO SCH (08:06)
--- NOTE | 2021-08-20 08:22 | PDOC ---
Exam Note: Florencio Note: This note is a late entry for 08/19/2021 covers elements not covered in my initial note. Subjective: The patient was seen individually on 08/19/2021, discussed and reviewed the chart with Tristian SIMON. The patient slept 8-1/2 hours previous night. Overall she remains somewhat withdrawn, spends much time in her room but does come out to the dining room for her meals. I met with her right after she had had her supper. She has not been delusional. She is calling herself by her maiden name. She remains a little forgetful, confused at times, grabbing a spoon on the table but nothing aggressive. Review of Systems: Positive for garbled speech. Ambulation impaired. No CV, , pulmonary, eye system symptoms on review. Mental Status Exam: The patient is oriented to herself and situation. Speech as noted above. Abstraction fair. Computation impaired. Language function intact. Attention span fair. Mood and affect she is more affable, smiling, trying to express herself despite the speech deficits. No suicidal or homicidal ideation. No overt delusions today. No side effects from the Risperdal. Laboratory Data: Reviewed. Impression: Schizoaffective disorder, bipolar type, with psychotic features. Anxiety disorder unspecified. Impulse control disorder unspecified. Plan: We will continue current psychotropics mentioned in my initial note. Reviewed drug interactions, risk-benefit ratio. Assessment: Vital Signs/I&O: Vital Signs Date Time Temp Pulse Resp B/P (MAP) Pulse Ox O2 Delivery O2 Flow Rate FiO2 08/20/21 06:05 98.0 51 20 142/56 (84) 96 08/19/21 06:07 Room Air I & O 08/19/21 08/19/21 08/20/21 15:00 23:00 07:00 Intake Total 580 ml 340 ml Balance 580 ml 340 ml Current Medications: I have reviewed the current psychotropics carefully including drug interactions. Risk benefit ratio favors no change other than as noted in my dictated progress note. Diagnosis: Problems: (1) Schizoaffective disorder, bipolar type (2) Impulse control disorder, unspecified (3) Mild cognitive impairment (4) Anxiety disorder, unspecified (5) Schizophrenia, paranoid, chronic with acute exacerbation (6) Bipolar disorder, current episode mixed, severe, with psychotic features PATRIC DAVIS MD Aug 20, 2021 08:22
--- NOTE | 2021-08-20 11:20 | NUR ---
WEEKLY ACTIVITY THERAPY NOTE Date of Admission:07/29/21 Date of AT Assessment: 07/30 Precipitating behaviors that initiated intake and admission: paranoia, packing bags to leave home, delusional, thinks someone is trying to steal her stuff, hiding knives, writing her name all over her clothes with a sharpie, insomnia, periods of aggression Goal aimed: increase socialization and engagement Initial Goal: Pt will participate in at least three Activity Therapy sessions per week Weekly progress towards goal: did not achieve, zero Group participation level: none Weekly highlights: no participation Behaviors observed: withdrawn to room, limited interest in groups even with encouragement Plan: change goal to:Pt. will participate in at least five Activity Therapy sessions before discharge Beneficial adaptations:
--- NOTE | 2021-08-20 13:44 | NUR ---
Treatment team update: Pt is eating up to 75% of meals and sleeping on average 6.5 hours per night. Pt is A/O x 3 but has no physically or verbally aggressive behaviors noted. Pt does have periods of confusion and delusions but is easily redirected. Pt dtrs, Linda, participated in treatment via phone and questioned pt medications and their purpose. Pt dtrs expected pt to have less delusions by now and noted that the medications full effect would be 6-8 weeks. Pt has been accepted [facility] and SW will continue to aid in getting all final discharge plans are being made.
--- NOTE | 2021-08-20 14:00 | TX PLAN ---
Interdisciplinary Tx Plan Admission Information Jul 29, 2021 at 15:45 Legal Status (on Admission): Voluntary DPOA/Guardian Name: Michelle Scruggs Contact Other Contact Verified Code Status: Full Code Allergies: Coded Allergies: haloperidol (Verified Allergy, Intermediate, 07/29/21) Diagnoses Primary Diagnosis: Schiizophrenia with acute exacerbation Reasons for Admission: Delusions, Suspicious/paranoid, Poor impulse control, Other Problem in Patient's Words: Not consistently taking her medications and had a few medication changes that may not be appropriate for her at this time. Additional Admission Comments: According to the intake, pt took a sharpie and wrote names all over her clothing, hiding knives , packing various items around the house, delusional and thinks someone is stealing her stuff. Problems Active Problems: withdrawn delusional Inactive Problems: medication compliant Pt Strengths/Limitations Ability for [place]: Poor Cognitive Functioning/Ability: Fair Communication Skills/Ability: Fair Financial Resources: Fair Insight/Judgement: Poor Intellectual Ability: Fair Physical Health: Fair Social Skills: Fair Stability in Family: Excellent Stability in School/Work: Poor Verbal Skills: Fair Discharge Criteria Discharge Criteria: Adequate arrangements @DC, Improved behavior, Improved mood/thought Preliminary Discharge Plan Preliminary DC Plan: Current Living Arrange., Other Special Precautions Fall Risk: Low Initial D/C Plan Pt may discharge home. Identified Discharge Needs: considering possible referral for placement Currently Utilized Resources Currently Utilized Resources/P: PCP Identified Problems/Hx/Goals Objectives/Short-Term Goals Short Term Goals: Dec. Hallucination/Delus, Dec. Outbursts, Medication Stabilization, Prevent Deterioration, Promote Coping Skill Short Term Goals in Patient's: n/a Interventions/Frequency Staff Interventions/Frequency&: Psychiatrist to assess pt at least 3x per week for medication management. Social Work to assess pt at least 2x per week to identify barriers to care and discharge planning goals Nursing to assess behavior modification, medication effects and complete 15 minute checks daily. Encourage participation in group activities (if applicable) or 1:1 engagement based off activity dept goals. 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 (-) Education: Pt did graduate from high school (12th grade). Community Follow-up PCP follow-up Treatment Plan Explained Patient/Administration Manager had this treatment plan explained to him/her as indicated by the signature below and has been given the opportunity to ask questions and make suggestions: Date: Patient/Administration Manager Signature: Status Update Update Pt is eating up to 75% of meals and sleeping on average 6.5 hours per night. Pt is A/O x 3 but has no physically or verbally aggressive behaviors noted. Pt does have periods of confusion and delusions but is easily redirected. Pt dtrs, Linda, participated in treatment via phone and questioned pt medications and their purpose. Pt dtrs expected pt to have less delusions by now and noted that the medications full effect would be 6-8 weeks. Pt has been accepted to [facility] and SW will continue to aid in getting all final discharge plans are being made. BARBARA FRANCIS Aug 20, 2021 14:00
--- NOTE | 2021-08-20 14:05 | NUR ---
Wound Care Wound Type/Assessment: patient seen for a follow up of wound care consult. see wound assessment. patient has dry crusty red non granulated small round open areas with scratches to the right hip, the left hip has dry crusty red non granulated areas but no scratches, patient says they itch these areas were cleaned, measured, pictured and applied cream at this time. Treatment Recommendations/Plan: Recommendations of Cleansing the area then apply A &D ointment, BID and PRN and leave HEDIS REGISTERED NURSE RN Education provided: Educated patient about the POC with her wounds Offloading surface/device: N/A Recommended Referrals/Tests: N/A Discharge Recommendations for dressings: Wound care will continue to f/u. Notified RN about the POC
[2021-08-20 15:38] VITALS: BP 137/81
--- NOTE | 2021-08-20 16:21 | NUR ---
Nurse note: Patient is alert and oriented x 3; she is unable to report situation. She is calm and cooperative. Patient is compliant with taking medications whole and assessment. No disruptive behaviors. Will continue to monitor.
[2021-08-20] MEDS: DIVALPROEX ER 500 MG TAB.ER.24H PO SCH (20:38)
[2021-08-20] MEDS: DIVALPROEX ER 250 MG TAB.ER.24H. PO SCH (20:38)
[2021-08-20] MEDS: risperiDONE 1 MG TABLET. PO SCH (20:39)
[2021-08-20] MEDS: ALPRAZolam 0.5 MG TABLET PO SCH (20:40)
--- NOTE | 2021-08-20 21:21 | PDOC ---
Exam Note: Florencio Note: Please also refer to the separate dictated note~for this date of service dictated separately.~Patient seen individually. Discussed the patient with Nursing staff reviewed the chart.~Reviewed interim history and current functioning. Reviewed vital signs,~Labs/ Radiology~and current medications noted below. Continue current treatment with the changes noted in the dictated addendum note Assessment: Vital Signs/I&O: Vital Signs Date Time Temp Pulse Resp B/P (MAP) Pulse Ox O2 Delivery O2 Flow Rate FiO2 08/20/21 15:38 97.9 48 19 137/81 (99) 93 08/19/21 06:07 Room Air I & O 08/19/21 08/19/21 08/20/21 15:00 23:00 07:00 Intake Total 580 ml 340 ml Balance 580 ml 340 ml Current Medications: Meds: Current Medications Medications (Trade) Dose Ordered Sig/Dawit Route PRN Reason Start Time Stop Time Status Last Admin Dose Admin Acetaminophen (Tylenol) 650 mg PRN Q6HRS PRN PO MILD PAIN / TEMP > 100.3'F 07/29/21 16:15 08/05/21 03:07 Multi-Ingredient Ointment (Analgesic [place]) 1 paulo PRN QID PRN TP MUSCLE PAIN 07/29/21 16:15 Al Hydroxide/Mg Hydroxide (Mylanta Plus Xs) 15 ml PRN AFTMEALHC PRN PO DYSPEPSIA 07/29/21 16:15 Magnesium Hydroxide (Milk Of Magnesia) 2,400 mg PRN QHS PRN PO CONSTIPATION 07/29/21 16:15 Aripiprazole (Abilify) 15 mg DAILY PO 07/30/21 09:00 08/03/21 18:42 DC 08/03/21 08:43 Nystatin (Nystop) 1 paulo PRN BID PRN TP RASH 07/29/21 16:15 08/03/21 10:30 Alprazolam (Xanax) 1 mg HS PO 07/29/21 21:00 08/20/21 20:40 Zinc Acetate/ Diphenhydramine (Benadryl Topical) 1 paulo PRN TID PRN TP ITCHY SKIN 07/29/21 16:30 Vitamin D (Vitamin D3) 50,000 unit WEEKLY PO 08/02/21 09:00 08/16/21 08:24 Multivitamins/ Calcium (Thera-M Plus) 1 tab DAILY PO 07/30/21 09:00 08/20/21 08:06 Olanzapine (ZyPREXA ZYDIS) 2.5 mg PRN Q2HR PRN PO PSYCHOSIS 07/30/21 11:15 08/13/21 21:05 Trazodone HCl (Desyrel) 50 mg PRN QHS PRN PO INSOMNIA, MAY REPEAT X1 07/30/21 11:15 08/01/21 12:48 DC 07/30/21 20:41 Divalproex Sodium (Depakote Er) 500 mg QHS PO 07/31/21 21:00 08/03/21 18:58 DC 08/02/21 20:01 Levofloxacin (Levaquin) 250 mg DAILY06 PO 08/02/21 06:00 08/06/21 23:00 DC 08/06/21 06:28 Lactobacillus Rhamnosus (Culturelle) 1 cap BID PO 08/03/21 09:00 08/20/21 20:38 Risperidone (RisperDAL) 0.5 mg QHS PO 08/03/21 21:00 08/12/21 17:27 DC 08/11/21 20:30 Divalproex Sodium (Depakote Er) 250 mg HS PO 08/03/21 21:00 08/20/21 20:38 Divalproex Sodium (Depakote Er) 500 mg HS PO 08/03/21 21:00 08/20/21 20:38 Risperidone (RisperDAL) 1 mg QHS PO 08/12/21 21:00 08/20/21 20:39 Trazodone HCl (Desyrel) 50 mg PRN QHS PRN PO INSOMNIA, MAY REPEAT X1 08/12/21 17:30 08/18/21 20:54 Benztropine Mesylate (Cogentin) 0.5 mg DAILY PO 08/14/21 09:00 08/20/21 08:06 Olanzapine (ZyPREXA ZYDIS) 5 mg 1X PRN PO PSYCHOSIS 08/20/21 12:15 I have reviewed the current psychotropics carefully including drug interactions. Risk benefit ratio favors no change other than as noted in my dictated progress note. Diagnosis: Problems: (1) Schizoaffective disorder, bipolar type (2) Impulse control disorder, unspecified (3) Mild cognitive impairment (4) Anxiety disorder, unspecified (5) Schizophrenia, paranoid, chronic with acute exacerbation (6) Bipolar disorder, current episode mixed, severe, with psychotic features PATRIC DAVIS MD Aug 20, 2021 21:21
--- NOTE | 2021-08-21 00:49 | NUR ---
Nursing Note The patient was pleasant and cooperative this shift. The patient was alert to name only and at times is difficult to understand due to mildly garbled speech. The patient took her medication whole. The patient is currently sleeping in her room.
[2021-08-21 06:08] VITALS: BP 150/66
[2021-08-21] MEDS: BENZTROPINE MESYLATE 0.5 MG TABLET PO SCH (08:25)
[2021-08-21] MEDS: MULTIVITAMIN with MINERAL TABLET. PO SCH (08:25)
[2021-08-21] MEDS: LACTOBACILLUS RHAMNOSUS GG 1 CAPSULE. PO SCH ×2 (08:25→20:08)
--- NOTE | 2021-08-21 08:53 | PDOC ---
Exam Note: Florencio Note: This note is a late entry for 08/20/2021 covers elements not covered in my initial note. Subjective: The patient was reviewed at treatment team meeting individually in the morning on 08/20/2021 with Sofie Abdi, Laurie Light, and Irena Herrera (psychosocial rehabilitation counselor), Floridalma, activity therapy, and Antonia SIMON, discussed and reviewed the chart. The patient slept 5 hours previous night. Her daughters Michelle and Nancy attended the treatment team meeting as well. Appetite 70%. Average sleep 6-1/2 hours. Discussed the patients diagnoses, progress, current psychotropics, response to treatment at length and answered many questions asked by the daughters. I also met with the patient in her room in the evening. Review of Systems: Positive for garbled speech. Ambulation impaired. No CV, , pulmonary, eye system symptoms on review. Mental Status Exam: The patient is oriented to herself and situation. She is less paranoid, delusional, not referring to herself with her maiden name. Speech she does have dysarthria, gets embarrassed due to speech difficulty. She was having a snack pudding in her room in the evening but put it aside as I met with her at some length. Abstraction fair. Computation impaired. Language function intact. Attention span fair. Mood and affect anxious. Laboratory Data: Reviewed. Impression: Schizoaffective disorder, bipolar type, with psychotic features. Anxiety disorder unspecified. Impulse control disorder unspecified. Plan: We will continue current psychotropics mentioned in my initial note. Reviewed drug interactions, risk-benefit ratio. Adjust as clinically indicated. Assessment: Vital Signs/I&O: Vital Signs Date Time Temp Pulse Resp B/P (MAP) Pulse Ox O2 Delivery O2 Flow Rate FiO2 08/21/21 06:08 97.7 62 20 150/66 (94) 95 Room Air I & O 08/20/21 08/20/21 08/21/21 15:00 23:00 07:00 Intake Total 960 ml 420 ml Balance 960 ml 420 ml Current Medications: I have reviewed the current psychotropics carefully including drug interactions. Risk benefit ratio favors no change other than as noted in my dictated progress note. Diagnosis: Problems: (1) Schizoaffective disorder, bipolar type (2) Impulse control disorder, unspecified (3) Mild cognitive impairment (4) Anxiety disorder, unspecified (5) Schizophrenia, paranoid, chronic with acute exacerbation (6) Bipolar disorder, current episode mixed, severe, with psychotic features PATRIC DAVIS MD Aug 21, 2021 08:53
--- NOTE | 2021-08-21 10:42 | NUR ---
Nurse note: Patient is pleasant and cooperative. She is alert and oriented x 2. She is unable to state place or situation. She is difficult to understand at time due to garbled speech but she is able to make needs known. Patient is compliant with taking medications whole and assessment. She is quiet and withdrawn, spending most of her time in her room. She went to day room for a short time but did not engage with peers or staff. No delusions noted. Denies A/V hallucinations. Denies pain or discomfort. Denies SI/HI/self harm. No disruptive behaviors. Will continue to monitor.
[2021-08-21 15:17] VITALS: BP 157/71
[2021-08-21] MEDS: DIVALPROEX ER 500 MG TAB.ER.24H PO SCH (20:08)
[2021-08-21] MEDS: risperiDONE 1 MG TABLET. PO SCH (20:08)
[2021-08-21] MEDS: DIVALPROEX ER 250 MG TAB.ER.24H. PO SCH (20:08)
[2021-08-21] MEDS: ALPRAZolam 0.5 MG TABLET PO SCH (20:09)
--- NOTE | 2021-08-21 21:43 | PDOC ---
Exam Note: Florencio Note: Please also refer to the separate dictated note~for this date of service dictated separately.~Patient seen individually. Discussed the patient with Nursing staff reviewed the chart.~Reviewed interim history and current functioning. Reviewed vital signs,~Labs/ Radiology~and current medications noted below. Continue current treatment with the changes noted in the dictated addendum note Assessment: Vital Signs/I&O: Vital Signs Date Time Temp Pulse Resp B/P (MAP) Pulse Ox O2 Delivery O2 Flow Rate FiO2 08/21/21 15:17 98.2 81 17 157/71 (99) 97 Room Air I & O 08/20/21 08/20/21 08/21/21 15:00 23:00 07:00 Intake Total 960 ml 420 ml Balance 960 ml 420 ml Current Medications: Meds: Current Medications Medications (Trade) Dose Ordered Sig/Dawit Route PRN Reason Start Time Stop Time Status Last Admin Dose Admin Acetaminophen (Tylenol) 650 mg PRN Q6HRS PRN PO MILD PAIN / TEMP > 100.3'F 07/29/21 16:15 08/05/21 03:07 Multi-Ingredient Ointment (Analgesic [place]) 1 paulo PRN QID PRN TP MUSCLE PAIN 07/29/21 16:15 Al Hydroxide/Mg Hydroxide (Mylanta Plus Xs) 15 ml PRN AFTMEALHC PRN PO DYSPEPSIA 07/29/21 16:15 Magnesium Hydroxide (Milk Of Magnesia) 2,400 mg PRN QHS PRN PO CONSTIPATION 07/29/21 16:15 Aripiprazole (Abilify) 15 mg DAILY PO 07/30/21 09:00 08/03/21 18:42 DC 08/03/21 08:43 Nystatin (Nystop) 1 paulo PRN BID PRN TP RASH 07/29/21 16:15 08/03/21 10:30 Alprazolam (Xanax) 1 mg HS PO 07/29/21 21:00 08/21/21 20:09 Zinc Acetate/ Diphenhydramine (Benadryl Topical) 1 paulo PRN TID PRN TP ITCHY SKIN 07/29/21 16:30 Vitamin D (Vitamin D3) 50,000 unit WEEKLY PO 08/02/21 09:00 08/16/21 08:24 Multivitamins/ Calcium (Thera-M Plus) 1 tab DAILY PO 07/30/21 09:00 08/21/21 08:25 Olanzapine (ZyPREXA ZYDIS) 2.5 mg PRN Q2HR PRN PO PSYCHOSIS 07/30/21 11:15 08/13/21 21:05 Trazodone HCl (Desyrel) 50 mg PRN QHS PRN PO INSOMNIA, MAY REPEAT X1 07/30/21 11:15 08/01/21 12:48 DC 07/30/21 20:41 Divalproex Sodium (Depakote Er) 500 mg QHS PO 07/31/21 21:00 08/03/21 18:58 DC 08/02/21 20:01 Levofloxacin (Levaquin) 250 mg DAILY06 PO 08/02/21 06:00 08/06/21 23:00 DC 08/06/21 06:28 Lactobacillus Rhamnosus (Culturelle) 1 cap BID PO 08/03/21 09:00 08/21/21 20:08 Risperidone (RisperDAL) 0.5 mg QHS PO 08/03/21 21:00 08/12/21 17:27 DC 08/11/21 20:30 Divalproex Sodium (Depakote Er) 250 mg HS PO 08/03/21 21:00 08/21/21 20:08 Divalproex Sodium (Depakote Er) 500 mg HS PO 08/03/21 21:00 08/21/21 20:08 Risperidone (RisperDAL) 1 mg QHS PO 08/12/21 21:00 08/21/21 20:08 Trazodone HCl (Desyrel) 50 mg PRN QHS PRN PO INSOMNIA, MAY REPEAT X1 08/12/21 17:30 08/18/21 20:54 Benztropine Mesylate (Cogentin) 0.5 mg DAILY PO 08/14/21 09:00 08/21/21 08:25 Olanzapine (ZyPREXA ZYDIS) 5 mg 1X PRN PO PSYCHOSIS 08/20/21 12:15 08/21/21 07:44 DC Olanzapine (ZyPREXA ZYDIS) 5 mg PRN 1X PRN PO PSYCHOSIS 08/21/21 07:45 I have reviewed the current psychotropics carefully including drug interactions. Risk benefit ratio favors no change other than as noted in my dictated progress note. Diagnosis: Problems: (1) Schizoaffective disorder, bipolar type (2) Impulse control disorder, unspecified (3) Mild cognitive impairment (4) Anxiety disorder, unspecified (5) Schizophrenia, paranoid, chronic with acute exacerbation (6) Bipolar disorder, current episode mixed, severe, with psychotic features PATRIC DAVIS MD Aug 21, 2021 21:42
[2021-08-22 05:17] VITALS: BP 153/94
--- NOTE | 2021-08-22 08:18 | PDOC ---
Exam Note: Florencio Note: This note is a late entry for 08/21/2021 covers elements not covered in my initial note. Subjective: The patient was seen individually on 08/21/2021, discussed and reviewed the chart with Antonia SIMON. The patient slept 3-1/2 hours previous night. I met with her in her room. She has been fairly quiet, withdrawn, but not delusional, not talking about her being . I met with her in her room. Review of Systems: Ambulation impaired. No CV, , pulmonary, eye system symptoms on review. Mental Status Exam: The patient is oriented to herself and situation. She was pleasant, smiling, trying to communicate despite her dysarthria. I specifically questioned her about her delusions but none were evident. Abstraction fair. Computation impaired. Language function intact. Attention span fair. Mood and affect anxious. Laboratory Data: Reviewed. Impression: Schizoaffective disorder, bipolar type, with psychotic features. Anxiety disorder unspecified. Impulse control disorder unspecified. Plan: We will continue current psychotropics mentioned in my initial note. Reviewed drug interactions, risk-benefit ratio. Adjust as clinically indicated. Assessment: Vital Signs/I&O: Vital Signs Date Time Temp Pulse Resp B/P (MAP) Pulse Ox O2 Delivery O2 Flow Rate FiO2 08/22/21 05:17 97.9 64 18 153/94 (113) 99 08/21/21 15:17 Room Air I & O 08/21/21 08/21/21 08/22/21 15:00 23:00 07:00 Intake Total 600 ml 720 ml Balance 600 ml 720 ml Current Medications: I have reviewed the current psychotropics carefully including drug interactions. Risk benefit ratio favors no change other than as noted in my dictated progress note. Diagnosis: Problems: (1) Schizoaffective disorder, bipolar type (2) Impulse control disorder, unspecified (3) Mild cognitive impairment (4) Anxiety disorder, unspecified (5) Schizophrenia, paranoid, chronic with acute exacerbation (6) Bipolar disorder, current episode mixed, severe, with psychotic features PATRIC DAVIS MD Aug 22, 2021 08:18
[2021-08-22] MEDS: LACTOBACILLUS RHAMNOSUS GG 1 CAPSULE. PO SCH ×2 (08:30→21:03)
[2021-08-22] MEDS: BENZTROPINE MESYLATE 0.5 MG TABLET PO SCH (08:30)
[2021-08-22] MEDS: MULTIVITAMIN with MINERAL TABLET. PO SCH (08:30)
--- NOTE | 2021-08-22 11:38 | NUR ---
Nurse note: Patient is pleasant and cooperative. She is alert and oriented x 4. She is difficult to understand at time due to garbled speech but she is able to make needs known. Patient is compliant with assessment and taking medications whole. She is quiet and withdrawn, spending most of her time in her room. No delusions noted. Denies A/V hallucinations. Denies pain or discomfort. Denies SI/HI/self harm. No disruptive behaviors. Will continue to monitor.
[2021-08-22 15:55] VITALS: BP 137/56
[2021-08-22] MEDS: DIVALPROEX ER 500 MG TAB.ER.24H PO SCH (21:03)
[2021-08-22] MEDS: DIVALPROEX ER 250 MG TAB.ER.24H. PO SCH (21:03)
[2021-08-22] MEDS: risperiDONE 1 MG TABLET. PO SCH (21:03)
[2021-08-22] MEDS: ALPRAZolam 0.5 MG TABLET PO SCH (21:04)
--- NOTE | 2021-08-22 22:00 | PDOC ---
Exam Note: Florencio Note: Please also refer to the separate dictated note~for this date of service dictated separately.~Patient seen individually. Discussed the patient with Nursing staff reviewed the chart.~Reviewed interim history and current functioning. Reviewed vital signs,~Labs/ Radiology~and current medications noted below. Continue current treatment with the changes noted in the dictated addendum note Assessment: Vital Signs/I&O: Vital Signs Date Time Temp Pulse Resp B/P (MAP) Pulse Ox O2 Delivery O2 Flow Rate FiO2 08/22/21 15:55 97.6 67 18 137/56 (83) 95 08/21/21 15:17 Room Air I & O 08/21/21 08/21/21 08/22/21 15:00 23:00 07:00 Intake Total 600 ml 720 ml Balance 600 ml 720 ml Current Medications: Meds: Current Medications Medications (Trade) Dose Ordered Sig/Dawit Route PRN Reason Start Time Stop Time Status Last Admin Dose Admin Acetaminophen (Tylenol) 650 mg PRN Q6HRS PRN PO MILD PAIN / TEMP > 100.3'F 07/29/21 16:15 08/05/21 03:07 Multi-Ingredient Ointment (Analgesic [place]) 1 paulo PRN QID PRN TP MUSCLE PAIN 07/29/21 16:15 Al Hydroxide/Mg Hydroxide (Mylanta Plus Xs) 15 ml PRN AFTMEALHC PRN PO DYSPEPSIA 07/29/21 16:15 Magnesium Hydroxide (Milk Of Magnesia) 2,400 mg PRN QHS PRN PO CONSTIPATION 07/29/21 16:15 Aripiprazole (Abilify) 15 mg DAILY PO 07/30/21 09:00 08/03/21 18:42 DC 08/03/21 08:43 Nystatin (Nystop) 1 paulo PRN BID PRN TP RASH 07/29/21 16:15 08/03/21 10:30 Alprazolam (Xanax) 1 mg HS PO 07/29/21 21:00 08/22/21 21:04 Zinc Acetate/ Diphenhydramine (Benadryl Topical) 1 paulo PRN TID PRN TP ITCHY SKIN 07/29/21 16:30 Vitamin D (Vitamin D3) 50,000 unit WEEKLY PO 08/02/21 09:00 08/16/21 08:24 Multivitamins/ Calcium (Thera-M Plus) 1 tab DAILY PO 07/30/21 09:00 08/22/21 08:30 Olanzapine (ZyPREXA ZYDIS) 2.5 mg PRN Q2HR PRN PO PSYCHOSIS 07/30/21 11:15 08/13/21 21:05 Trazodone HCl (Desyrel) 50 mg PRN QHS PRN PO INSOMNIA, MAY REPEAT X1 07/30/21 11:15 08/01/21 12:48 DC 07/30/21 20:41 Divalproex Sodium (Depakote Er) 500 mg QHS PO 07/31/21 21:00 08/03/21 18:58 DC 08/02/21 20:01 Levofloxacin (Levaquin) 250 mg DAILY06 PO 08/02/21 06:00 08/06/21 23:00 DC 08/06/21 06:28 Lactobacillus Rhamnosus (Culturelle) 1 cap BID PO 08/03/21 09:00 08/22/21 21:03 Risperidone (RisperDAL) 0.5 mg QHS PO 08/03/21 21:00 08/12/21 17:27 DC 08/11/21 20:30 Divalproex Sodium (Depakote Er) 250 mg HS PO 08/03/21 21:00 08/22/21 21:03 Divalproex Sodium (Depakote Er) 500 mg HS PO 08/03/21 21:00 08/22/21 21:03 Risperidone (RisperDAL) 1 mg QHS PO 08/12/21 21:00 08/22/21 21:03 Trazodone HCl (Desyrel) 50 mg PRN QHS PRN PO INSOMNIA, MAY REPEAT X1 08/12/21 17:30 08/18/21 20:54 Benztropine Mesylate (Cogentin) 0.5 mg DAILY PO 08/14/21 09:00 08/22/21 08:30 Olanzapine (ZyPREXA ZYDIS) 5 mg 1X PRN PO PSYCHOSIS 08/20/21 12:15 08/21/21 07:44 DC Olanzapine (ZyPREXA ZYDIS) 5 mg PRN 1X PRN PO PSYCHOSIS 08/21/21 07:45 I have reviewed the current psychotropics carefully including drug interactions. Risk benefit ratio favors no change other than as noted in my dictated progress note. Diagnosis: Problems: (1) Schizoaffective disorder, bipolar type (2) Impulse control disorder, unspecified (3) Mild cognitive impairment (4) Anxiety disorder, unspecified (5) Schizophrenia, paranoid, chronic with acute exacerbation (6) Bipolar disorder, current episode mixed, severe, with psychotic features PATRIC DAVIS MD Aug 22, 2021 22:00
--- NOTE | 2021-08-22 23:52 | NUR ---
Pt located in her room all evening. Pt calm and cooperative. Compliant with whole medications.
[2021-08-23 06:29] VITALS: BP 136/94
--- NOTE | 2021-08-23 08:28 | PDOC ---
Exam Note: Florencio Note: This note is a late entry for 08/22/2021 covers elements not covered in my initial note. Subjective: The patient was seen individually on 08/22/2021, discussed and reviewed the chart with Yesy SIMON. The patient slept 2-3/4 hours previous night. She remains withdrawn. I met with her in her room. Otherwise she is appropriate, isolates because she gets embarrassed from her dysarthria. Review of Systems: Ambulation impaired. No CV, , pulmonary, eye system symptoms on review. Mental Status Exam: The patient is oriented to herself and situation. Speech as above. Abstraction fair. Computation impaired. Language function intact. Attention span fair. Mood and affect anxious. Laboratory Data: Reviewed. Impression: Schizoaffective disorder, bipolar type, with psychotic features. Anxiety disorder unspecified. Impulse control disorder unspecified. Plan: We will continue current psychotropics mentioned in my initial note. Rev iewed drug interactions, risk-benefit ratio. Adjust as clinically indicated. Assessment: Vital Signs/I&O: Vital Signs Date Time Temp Pulse Resp B/P (MAP) Pulse Ox O2 Delivery O2 Flow Rate FiO2 08/23/21 06:29 98.2 56 20 136/94 (108) 97 Room Air 0.0 I & O 08/22/21 08/22/21 08/23/21 15:00 23:00 07:00 Intake Total 200 ml 360 ml Balance 200 ml 360 ml Current Medications: I have reviewed the current psychotropics carefully including drug interactions. Risk benefit ratio favors no change other than as noted in my dictated progress note. Diagnosis: Problems: (1) Schizoaffective disorder, bipolar type (2) Impulse control disorder, unspecified (3) Mild cognitive impairment (4) Anxiety disorder, unspecified (5) Schizophrenia, paranoid, chronic with acute exacerbation (6) Bipolar disorder, current episode mixed, severe, with psychotic features PATRIC DAVIS MD Aug 23, 2021 08:28
[2021-08-23] MEDS: MULTIVITAMIN with MINERAL TABLET. PO SCH (09:01)
[2021-08-23] MEDS: BENZTROPINE MESYLATE 0.5 MG TABLET PO SCH (09:01)
[2021-08-23] MEDS: CHOLECALCIFEROL (VITAMIN D3) 50,000 UNIT CAPSULE PO SCH (09:02)
[2021-08-23] MEDS: LACTOBACILLUS RHAMNOSUS GG 1 CAPSULE. PO SCH ×2 (09:02→21:16)
--- NOTE | 2021-08-23 15:32 | NUR ---
Nursing note: Patient in bedroom for assessment & medication. She is compliant with medications taken whole. She is A/O X3, unable to report situation & states her maiden last name. She denies pain/discomfort at this time. Patient is very garbled when she speaks making it hard to understand her. She is calm, withdrawn, & cooperative. She ambulates independently with walker, can be unsteady at times. She is currently sitting in chair in her room. Will continue to monitor.
[2021-08-23 15:51] VITALS: BP 113/71
[2021-08-23] MEDS: DIVALPROEX ER 250 MG TAB.ER.24H. PO SCH (21:16)
[2021-08-23] MEDS: risperiDONE 1 MG TABLET. PO SCH (21:16)
[2021-08-23] MEDS: DIVALPROEX ER 500 MG TAB.ER.24H PO SCH (21:16)
[2021-08-23] MEDS: ALPRAZolam 0.5 MG TABLET PO SCH (21:17)
--- NOTE | 2021-08-23 21:54 | PDOC ---
Exam Note: Florencio Note: Please also refer to the separate dictated note~for this date of service dictated separately.~Patient seen individually. Discussed the patient with Nursing staff reviewed the chart.~Reviewed interim history and current functioning. Reviewed vital signs,~Labs/ Radiology~and current medications noted below. Continue current treatment with the changes noted in the dictated addendum note Assessment: Vital Signs/I&O: Vital Signs Date Time Temp Pulse Resp B/P (MAP) Pulse Ox O2 Delivery O2 Flow Rate FiO2 08/23/21 15:51 98.4 47 18 113/71 (85) 96 08/23/21 06:29 Room Air 0.0 I & O 08/22/21 08/22/21 08/23/21 14:59 22:59 06:59 Intake Total 200 ml 360 ml Balance 200 ml 360 ml Current Medications: Meds: Current Medications Medications (Trade) Dose Ordered Sig/Dawit Route PRN Reason Start Time Stop Time Status Last Admin Dose Admin Acetaminophen (Tylenol) 650 mg PRN Q6HRS PRN PO MILD PAIN / TEMP > 100.3'F 07/29/21 16:15 08/05/21 03:07 Multi-Ingredient Ointment (Analgesic [place]) 1 paulo PRN QID PRN TP MUSCLE PAIN 07/29/21 16:15 Al Hydroxide/Mg Hydroxide (Mylanta Plus Xs) 15 ml PRN AFTMEALHC PRN PO DYSPEPSIA 07/29/21 16:15 Magnesium Hydroxide (Milk Of Magnesia) 2,400 mg PRN QHS PRN PO CONSTIPATION 07/29/21 16:15 Aripiprazole (Abilify) 15 mg DAILY PO 07/30/21 09:00 08/03/21 18:42 DC 08/03/21 08:43 Nystatin (Nystop) 1 paulo PRN BID PRN TP RASH 07/29/21 16:15 08/03/21 10:30 Alprazolam (Xanax) 1 mg HS PO 07/29/21 21:00 08/23/21 21:17 Zinc Acetate/ Diphenhydramine (Benadryl Topical) 1 paulo PRN TID PRN TP ITCHY SKIN 07/29/21 16:30 Vitamin D (Vitamin D3) 50,000 unit WEEKLY PO 08/02/21 09:00 08/23/21 09:02 Multivitamins/ Calcium (Thera-M Plus) 1 tab DAILY PO 07/30/21 09:00 08/23/21 09:01 Olanzapine (ZyPREXA ZYDIS) 2.5 mg PRN Q2HR PRN PO PSYCHOSIS 07/30/21 11:15 08/13/21 21:05 Trazodone HCl (Desyrel) 50 mg PRN QHS PRN PO INSOMNIA, MAY REPEAT X1 07/30/21 11:15 08/01/21 12:48 DC 07/30/21 20:41 Divalproex Sodium (Depakote Er) 500 mg QHS PO 07/31/21 21:00 08/03/21 18:58 DC 08/02/21 20:01 Levofloxacin (Levaquin) 250 mg DAILY06 PO 08/02/21 06:00 08/06/21 23:00 DC 08/06/21 06:28 Lactobacillus Rhamnosus (Culturelle) 1 cap BID PO 08/03/21 09:00 08/23/21 21:16 Risperidone (RisperDAL) 0.5 mg QHS PO 08/03/21 21:00 08/12/21 17:27 DC 08/11/21 20:30 Divalproex Sodium (Depakote Er) 250 mg HS PO 08/03/21 21:00 08/23/21 21:16 Divalproex Sodium (Depakote Er) 500 mg HS PO 08/03/21 21:00 08/23/21 21:16 Risperidone (RisperDAL) 1 mg QHS PO 08/12/21 21:00 08/23/21 21:16 Trazodone HCl (Desyrel) 50 mg PRN QHS PRN PO INSOMNIA, MAY REPEAT X1 08/12/21 17:30 08/18/21 20:54 Benztropine Mesylate (Cogentin) 0.5 mg DAILY PO 08/14/21 09:00 08/23/21 09:01 Olanzapine (ZyPREXA ZYDIS) 5 mg 1X PRN PO PSYCHOSIS 08/20/21 12:15 08/21/21 07:44 DC Olanzapine (ZyPREXA ZYDIS) 5 mg PRN 1X PRN PO SEE LABEL COMMENT 08/21/21 07:45 I have reviewed the current psychotropics carefully including drug interactions. Risk benefit ratio favors no change other than as noted in my dictated progress note. Diagnosis: Problems: (1) Schizoaffective disorder, bipolar type (2) Impulse control disorder, unspecified (3) Mild cognitive impairment (4) Anxiety disorder, unspecified (5) Schizophrenia, paranoid, chronic with acute exacerbation (6) Bipolar disorder, current episode mixed, severe, with psychotic features PATRIC DAVIS MD Aug 23, 2021 21:54
--- NOTE | 2021-08-23 23:39 | NUR ---
Pt sitting calmly in her room this evening. Compliant with whole medications. Pleasant and cooperative.
[2021-08-24 06:32] VITALS: BP 177/69
[2021-08-24 07:27] LABS: BASO % 1 % (0-3); EOS # 0.4 x10^3/uL (0.0-0.7); EOS % 7 % (0-3); HEMATOCRIT 39.1 % (36.0-47.0); HEMOGLOBIN 12.9 g/dL (12.0-15.5); LYMPH # 1.8 x10^3/uL (1.0-4.8); LYMPH % 32 % (24-48); MEAN CORPUSCULAR HEMOGLOBIN 30 pg (25-35); MEAN CORPUSCULAR HGB CONC 33 g/dL (31-37); MEAN CORPUSCULAR VOLUME 92 fL (79-100); MONO # 0.6 x10^3/uL (0.0-1.1); MONO % 11 % (0-9); NEUT # 2.9 x10^3uL (1.8-7.7); NEUT % 50 % (31-73); PLATELET COUNT 258 x10^3/uL (140-400); RED BLOOD COUNT 4.25 x10^6/uL (3.50-5.40); RED CELL DISTRIBUTION WIDTH 15.5 % (11.5-14.5); WHITE BLOOD COUNT 5.7 x10^3/uL (4.0-11.0)
[2021-08-24] MEDS: LACTOBACILLUS RHAMNOSUS GG 1 CAPSULE. PO SCH ×3 (07:59→21:00)
[2021-08-24] MEDS: MULTIVITAMIN with MINERAL TABLET. PO SCH (07:59)
[2021-08-24] MEDS: BENZTROPINE MESYLATE 0.5 MG TABLET PO SCH (07:59)
[2021-08-24 08:04] LABS: ALBUMIN 2.9 g/dL (3.4-5.0); ALBUMIN/GLOBULIN RATIO 0.9 (1.0-1.7); CALCIUM 9.6 mg/dL (8.5-10.1); CREATININE 0.6 mg/dL (0.6-1.0); GFR 96.4; POTASSIUM 4.4 mmol/L (3.5-5.1); TOTAL BILIRUBIN 0.3 mg/dL (0.2-1.0); TOTAL PROTEIN 6.2 g/dL (6.4-8.2)
--- NOTE | 2021-08-24 09:19 | PDOC ---
Exam Note: Florencio Note: This note is a late entry for 08/23/2021 covers elements not covered in my initial note. Subjective: The patient was seen individually on 08/23/2021, discussed and reviewed the chart with Yesy SIMON. The patient slept 5-1/4 hours previous night. She has been withdrawn. I met with her in her room. She is compliant with medications. She refused p.r.n.s. Last evening she was more confused. She was leaving hospital at night. Review of Systems: Ambulation impaired. No CV, , pulmonary, eye system symptoms on review. Mental Status Exam: The patient is oriented to herself and situation. Speech garbled due to dysarthria. Abstraction fair. Computation impaired. Language function intact. Attention span fair. Mood and affect anxious. Laboratory Data: Reviewed. Impression: Schizoaffective disorder, bipolar type, with psychotic features. Anxiety disorder unspecified. Impulse control disorder unspecified. Plan: We will continue current psychotropics mentioned in my initial note. Reviewed drug interactions, risk-benefit ratio. Adjust as clinically indicated. Assessment: Vital Signs/I&O: Vital Signs Date Time Temp Pulse Resp B/P (MAP) Pulse Ox O2 Delivery O2 Flow Rate FiO2 08/24/21 06:32 97.9 78 18 177/69 (105) 94 08/23/21 06:29 Room Air 0.0 I & O 08/23/21 08/23/21 08/24/21 15:00 23:00 07:00 Intake Total 480 ml 720 ml Balance 480 ml 720 ml Labs: Laboratory Tests Test 08/24/21 06:45 White Blood Count 5.7 x10^3/uL (4.0-11.0) Red Blood Count 4.25 x10^6/uL (3.50-5.40) Hemoglobin 12.9 g/dL (12.0-15.5) Hematocrit 39.1 % (36.0-47.0) Mean Corpuscular Volume 92 fL (79-100) Mean Corpuscular Hemoglobin 30 pg (25-35) Mean Corpuscular Hemoglobin Concent 33 g/dL (31-37) Red Cell Distribution Width 15.5 % (11.5-14.5) H Platelet Count 258 x10^3/uL (140-400) Neutrophils (%) (Auto) 50 % (31-73) Lymphocytes (%) (Auto) 32 % (24-48) Monocytes (%) (Auto) 11 % (0-9) H Eosinophils (%) (Auto) 7 % (0-3) H Basophils (%) (Auto) 1 % (0-3) Neutrophils # (Auto) 2.9 x10^3uL (1.8-7.7) Lymphocytes # (Auto) 1.8 x10^3/uL (1.0-4.8) Monocytes # (Auto) 0.6 x10^3/uL (0.0-1.1) Eosinophils # (Auto) 0.4 x10^3/uL (0.0-0.7) Basophils # (Auto) 0.0 x10^3/uL (0.0-0.2) Sodium Level 141 mmol/L (136-145) Potassium Level 4.4 mmol/L (3.5-5.1) Chloride Level 106 mmol/L (98-107) Carbon Dioxide Level 29 mmol/L (21-32) Anion Gap 6 (6-14) Blood Urea Nitrogen 20 mg/dL (7-20) Creatinine 0.6 mg/dL (0.6-1.0) Estimated GFR (Cockcroft-Gault) 96.4 BUN/Creatinine Ratio 33 (6-20) H Glucose Level 80 mg/dL (70-99) Calcium Level 9.6 mg/dL (8.5-10.1) Total Bilirubin 0.3 mg/dL (0.2-1.0) Aspartate Amino Transferase (AST) 11 U/L (15-37) L Alanine Aminotransferase (ALT) 9 U/L (14-59) L Alkaline Phosphatase 63 U/L (46-116) Total Protein 6.2 g/dL (6.4-8.2) L Albumin 2.9 g/dL (3.4-5.0) L Albumin/Globulin Ratio 0.9 (1.0-1.7) L Current Medications: I have reviewed the current psychotropics carefully including drug interactions. Risk benefit ratio favors no change other than as noted in my dictated progress note. Diagnosis: Problems: (1) Schizoaffective disorder, bipolar type (2) Impulse control disorder, unspecified (3) Mild cognitive impairment (4) Anxiety disorder, unspecified (5) Schizophrenia, paranoid, chronic with acute exacerbation (6) Bipolar disorder, current episode mixed, severe, with psychotic features PATRIC DAVIS MD Aug 24, 2021 09:19
--- NOTE | 2021-08-24 15:32 | NUR ---
Nursing note: Patient in dinning room for assessment & medication. She is compliant with medications taken whole. She is A/O X3, unable to report situation & initially reported wrong . She denies pain/discomfort at this time. Patient is very garbled when she speaks making it hard to understand her. She is calm, withdrawn, & cooperative. She ambulates independently with walker, can be unsteady at times. She is currently in group room in a visit with family. Will continue to monitor.
[2021-08-24 15:57] VITALS: BP 144/60
[2021-08-24] MEDS: risperiDONE 1 MG TABLET. PO SCH ×2 (20:27→21:00)
[2021-08-24] MEDS: DIVALPROEX ER 250 MG TAB.ER.24H. PO SCH ×2 (20:27→21:00)
[2021-08-24] MEDS: DIVALPROEX ER 500 MG TAB.ER.24H PO SCH ×2 (20:27→21:00)
[2021-08-24] MEDS: ALPRAZolam 0.5 MG TABLET PO SCH ×2 (20:28→21:00)
--- NOTE | 2021-08-24 21:19 | PDOC ---
Exam Note: Florencio Note: Please also refer to the separate dictated note~for this date of service dictated separately.~Patient seen individually. Discussed the patient with Nursing staff reviewed the chart.~Reviewed interim history and current functioning. Reviewed vital signs,~Labs/ Radiology~and current medications noted below. Continue current treatment with the changes noted in the dictated addendum note Assessment: Vital Signs/I&O: Vital Signs Date Time Temp Pulse Resp B/P (MAP) Pulse Ox O2 Delivery O2 Flow Rate FiO2 08/24/21 15:57 97.7 61 16 144/60 (88) 93 08/23/21 06:29 Room Air 0.0 I & O 08/23/21 08/23/21 08/24/21 15:00 23:00 07:00 Intake Total 480 ml 720 ml Balance 480 ml 720 ml Labs: Laboratory Tests Test 08/24/21 06:45 White Blood Count 5.7 x10^3/uL (4.0-11.0) Red Blood Count 4.25 x10^6/uL (3.50-5.40) Hemoglobin 12.9 g/dL (12.0-15.5) Hematocrit 39.1 % (36.0-47.0) Mean Corpuscular Volume 92 fL (79-100) Mean Corpuscular Hemoglobin 30 pg (25-35) Mean Corpuscular Hemoglobin Concent 33 g/dL (31-37) Red Cell Distribution Width 15.5 % (11.5-14.5) H Platelet Count 258 x10^3/uL (140-400) Neutrophils (%) (Auto) 50 % (31-73) Lymphocytes (%) (Auto) 32 % (24-48) Monocytes (%) (Auto) 11 % (0-9) H Eosinophils (%) (Auto) 7 % (0-3) H Basophils (%) (Auto) 1 % (0-3) Neutrophils # (Auto) 2.9 x10^3uL (1.8-7.7) Lymphocytes # (Auto) 1.8 x10^3/uL (1.0-4.8) Monocytes # (Auto) 0.6 x10^3/uL (0.0-1.1) Eosinophils # (Auto) 0.4 x10^3/uL (0.0-0.7) Basophils # (Auto) 0.0 x10^3/uL (0.0-0.2) Sodium Level 141 mmol/L (136-145) Potassium Level 4.4 mmol/L (3.5-5.1) Chloride Level 106 mmol/L (98-107) Carbon Dioxide Level 29 mmol/L (21-32) Anion Gap 6 (6-14) Blood Urea Nitrogen 20 mg/dL (7-20) Creatinine 0.6 mg/dL (0.6-1.0) Estimated GFR (Cockcroft-Gault) 96.4 BUN/Creatinine Ratio 33 (6-20) H Glucose Level 80 mg/dL (70-99) Calcium Level 9.6 mg/dL (8.5-10.1) Total Bilirubin 0.3 mg/dL (0.2-1.0) Aspartate Amino Transferase (AST) 11 U/L (15-37) L Alanine Aminotransferase (ALT) 9 U/L (14-59) L Alkaline Phosphatase 63 U/L (46-116) Total Protein 6.2 g/dL (6.4-8.2) L Albumin 2.9 g/dL (3.4-5.0) L Albumin/Globulin Ratio 0.9 (1.0-1.7) L Current Medications: Meds: Laboratory Tests Test 08/24/21 06:45 White Blood Count 5.7 x10^3/uL Red Blood Count 4.25 x10^6/uL Hemoglobin 12.9 g/dL Hematocrit 39.1 % Mean Corpuscular Volume 92 fL Mean Corpuscular Hemoglobin 30 pg Mean Corpuscular Hemoglobin Concent 33 g/dL Red Cell Distribution Width 15.5 % Platelet Count 258 x10^3/uL Neutrophils (%) (Auto) 50 % Lymphocytes (%) (Auto) 32 % Monocytes (%) (Auto) 11 % Eosinophils (%) (Auto) 7 % Basophils (%) (Auto) 1 % Neutrophils # (Auto) 2.9 x10^3uL Lymphocytes # (Auto) 1.8 x10^3/uL Monocytes # (Auto) 0.6 x10^3/uL Eosinophils # (Auto) 0.4 x10^3/uL Basophils # (Auto) 0.0 x10^3/uL Sodium Level 141 mmol/L Potassium Level 4.4 mmol/L Chloride Level 106 mmol/L Carbon Dioxide Level 29 mmol/L Anion Gap 6 Blood Urea Nitrogen 20 mg/dL Creatinine 0.6 mg/dL Estimated GFR (Cockcroft-Gault) 96.4 BUN/Creatinine Ratio 33 Glucose Level 80 mg/dL Calcium Level 9.6 mg/dL Total Bilirubin 0.3 mg/dL Aspartate Amino Transf (AST/SGOT) 11 U/L Alanine Aminotransferase (ALT/SGPT) 9 U/L Alkaline Phosphatase 63 U/L Total Protein 6.2 g/dL Albumin 2.9 g/dL Albumin/Globulin Ratio 0.9 Current Medications Medications (Trade) Dose Ordered Sig/Dawit Route PRN Reason Start Time Stop Time Status Last Admin Dose Admin Acetaminophen (Tylenol) 650 mg PRN Q6HRS PRN PO MILD PAIN / TEMP > 100.3'F 07/29/21 16:15 08/05/21 03:07 Multi-Ingredient Ointment (Analgesic [place]) 1 paulo PRN QID PRN TP MUSCLE PAIN 07/29/21 16:15 Al Hydroxide/Mg Hydroxide (Mylanta Plus Xs) 15 ml PRN AFTMEALHC PRN PO DYSPEPSIA 07/29/21 16:15 Magnesium Hydroxide (Milk Of Magnesia) 2,400 mg PRN QHS PRN PO CONSTIPATION 07/29/21 16:15 Aripiprazole (Abilify) 15 mg DAILY PO 07/30/21 09:00 08/03/21 18:42 DC 08/03/21 08:43 Nystatin (Nystop) 1 paulo PRN BID PRN TP RASH 07/29/21 16:15 08/03/21 10:30 Alprazolam (Xanax) 1 mg HS PO 07/29/21 21:00 08/24/21 16:39 DC 08/23/21 21:17 Zinc Acetate/ Diphenhydramine (Benadryl Topical) 1 paulo PRN TID PRN TP ITCHY SKIN 07/29/21 16:30 Vitamin D (Vitamin D3) 50,000 unit WEEKLY PO 08/02/21 09:00 08/23/21 09:02 Multivitamins/ Calcium (Thera-M Plus) 1 tab DAILY PO 07/30/21 09:00 08/24/21 07:59 Olanzapine (ZyPREXA ZYDIS) 2.5 mg PRN Q2HR PRN PO PSYCHOSIS 07/30/21 11:15 08/13/21 21:05 Trazodone HCl (Desyrel) 50 mg PRN QHS PRN PO INSOMNIA, MAY REPEAT X1 07/30/21 11:15 08/01/21 12:48 DC 07/30/21 20:41 Divalproex Sodium (Depakote Er) 500 mg QHS PO 07/31/21 21:00 08/03/21 18:58 DC 08/02/21 20:01 Levofloxacin (Levaquin) 250 mg DAILY06 PO 08/02/21 06:00 08/06/21 23:00 DC 08/06/21 06:28 Lactobacillus Rhamnosus (Culturelle) 1 cap BID PO 08/03/21 09:00 08/24/21 20:27 Risperidone (RisperDAL) 0.5 mg QHS PO 08/03/21 21:00 08/12/21 17:27 DC 08/11/21 20:30 Divalproex Sodium (Depakote Er) 250 mg HS PO 08/03/21 21:00 08/24/21 20:27 Divalproex Sodium (Depakote Er) 500 mg HS PO 08/03/21 21:00 08/24/21 20:27 Risperidone (RisperDAL) 1 mg QHS PO 08/12/21 21:00 08/24/21 20:27 Trazodone HCl (Desyrel) 50 mg PRN QHS PRN PO INSOMNIA, MAY REPEAT X1 08/12/21 17:30 08/18/21 20:54 Benztropine Mesylate (Cogentin) 0.5 mg DAILY PO 08/14/21 09:00 08/24/21 07:59 Olanzapine (ZyPREXA ZYDIS) 5 mg 1X PRN PO PSYCHOSIS 08/20/21 12:15 08/21/21 07:44 DC Olanzapine (ZyPREXA ZYDIS) 5 mg PRN 1X PRN PO SEE LABEL COMMENT 08/21/21 07:45 Alprazolam (Xanax) 0.5 mg HS PO 08/24/21 21:00 08/24/21 20:28 Current Medications Medications (Trade) Dose Ordered Sig/Dawit Route PRN Reason Start Time Stop Time Status Last Admin Dose Admin Alprazolam (Xanax) 0.5 mg HS PO 08/24/21 21:00 08/24/21 20:28 I have reviewed the current psychotropics carefully including drug interactions. Risk benefit ratio favors no change other than as noted in my dictated progress note. Diagnosis: Problems: (1) Schizoaffective disorder, bipolar type (2) Impulse control disorder, unspecified (3) Mild cognitive impairment (4) Anxiety disorder, unspecified (5) Schizophrenia, paranoid, chronic with acute exacerbation (6) Bipolar disorder, current episode mixed, severe, with psychotic features PATRIC DAVIS MD Aug 24, 2021 21:19
--- NOTE | 2021-08-24 22:48 | PDOC ---
Exam Note: Florencio Note: This note is for 08/24/2021 covers elements not covered in my initial note. Subjective: The patient was seen individually on 08/24/2021, discussed and reviewed the chart with Kira SIMON. The patient slept 6-1/2 hours previous night. I met with her in her room. She is encouraged to come out of the dayroom. She tends to be obsessive, scratching on herself and if she is around others, she has a less of a tendency to do this. I met with her in her room after supper. She is lying in bed but came out promptly to sit on the chair interacting with me. Review of Systems: Ambulation impaired. No CV, , pulmonary, eye system symptoms on review. Mental Status Exam: The patient is oriented to herself and situation. She was pleasant, smiling. Speech garbled as before due to dysarthria. Abstraction fair. Computation impaired. Language function intact. Attention span fair. Mood and affect anxious. Laboratory Data: Reviewed. Impression: Schizoaffective disorder, bipolar type, with psychotic features. Anxiety disorder unspecified. Impulse control disorder unspecified. Plan: We will continue current psychotropics mentioned in my initial note. Reviewed drug interactions, risk-benefit ratio. We will reduce Xanax from 1 mg h.s. to 0.5 mg h.s. Rest unchanged. Adjust as clinically indicated. Assessment: Vital Signs/I&O: Vital Signs Date Time Temp Pulse Resp B/P (MAP) Pulse Ox O2 Delivery O2 Flow Rate FiO2 08/24/21 15:57 97.7 61 16 144/60 (88) 93 08/23/21 06:29 Room Air 0.0 I & O 08/23/21 08/23/21 08/24/21 15:00 23:00 07:00 Intake Total 480 ml 720 ml Balance 480 ml 720 ml Labs: Laboratory Tests Test 08/24/21 06:45 White Blood Count 5.7 x10^3/uL (4.0-11.0) Red Blood Count 4.25 x10^6/uL (3.50-5.40) Hemoglobin 12.9 g/dL (12.0-15.5) Hematocrit 39.1 % (36.0-47.0) Mean Corpuscular Volume 92 fL (79-100) Mean Corpuscular Hemoglobin 30 pg (25-35) Mean Corpuscular Hemoglobin Concent 33 g/dL (31-37) Red Cell Distribution Width 15.5 % (11.5-14.5) H Platelet Count 258 x10^3/uL (140-400) Neutrophils (%) (Auto) 50 % (31-73) Lymphocytes (%) (Auto) 32 % (24-48) Monocytes (%) (Auto) 11 % (0-9) H Eosinophils (%) (Auto) 7 % (0-3) H Basophils (%) (Auto) 1 % (0-3) Neutrophils # (Auto) 2.9 x10^3uL (1.8-7.7) Lymphocytes # (Auto) 1.8 x10^3/uL (1.0-4.8) Monocytes # (Auto) 0.6 x10^3/uL (0.0-1.1) Eosinophils # (Auto) 0.4 x10^3/uL (0.0-0.7) Basophils # (Auto) 0.0 x10^3/uL (0.0-0.2) Sodium Level 141 mmol/L (136-145) Potassium Level 4.4 mmol/L (3.5-5.1) Chloride Level 106 mmol/L (98-107) Carbon Dioxide Level 29 mmol/L (21-32) Anion Gap 6 (6-14) Blood Urea Nitrogen 20 mg/dL (7-20) Creatinine 0.6 mg/dL (0.6-1.0) Estimated GFR (Cockcroft-Gault) 96.4 BUN/Creatinine Ratio 33 (6-20) H Glucose Level 80 mg/dL (70-99) Calcium Level 9.6 mg/dL (8.5-10.1) Total Bilirubin 0.3 mg/dL (0.2-1.0) Aspartate Amino Transferase (AST) 11 U/L (15-37) L Alanine Aminotransferase (ALT) 9 U/L (14-59) L Alkaline Phosphatase 63 U/L (46-116) Total Protein 6.2 g/dL (6.4-8.2) L Albumin 2.9 g/dL (3.4-5.0) L Albumin/Globulin Ratio 0.9 (1.0-1.7) L Current Medications: Meds: Current Medications Medications (Trade) Dose Ordered Sig/Dawit Route PRN Reason Start Time Stop Time Status Last Admin Dose Admin Alprazolam (Xanax) 0.5 mg HS PO 08/24/21 21:00 08/24/21 20:28 I have reviewed the current psychotropics carefully including drug interactions. Risk benefit ratio favors no change other than as noted in my dictated progress note. Diagnosis: Problems: (1) Schizoaffective disorder, bipolar type (2) Impulse control disorder, unspecified (3) Mild cognitive impairment (4) Anxiety disorder, unspecified (5) Schizophrenia, paranoid, chronic with acute exacerbation (6) Bipolar disorder, current episode mixed, severe, with psychotic features PATRIC DAVIS MD Aug 24, 2021 22:48
--- NOTE | 2021-08-24 23:05 | NUR ---
Pt withdrawn to her room all night. Pt irritable when approached and adamantly refused her HS medications. Pt stated that she is and can't take the medication. Pt approached several times to attempt to administer. Pt also stated that the heavenly father does not want her to take the medication. Pt currently sitting awake in her room.
[2021-08-25 03:42] LABS: CLARITY,URINE CLEAR; COLOR,URINE YELLOW; GLUCOSE,URINE NEG (NEG); UROBILINOGEN,URINE 0.2 mg/dL (0.2 mg/dL)
[2021-08-25 03:43] LABS: BACTERIA,URINE 0 /HPF (0-FEW); NITRITE,URINE NEG (NEG); RBC,URINE 0 /HPF (0-2); SQUAMOUS EPITHELIAL CELL,UR FEW /LPF
[2021-08-25 05:58] VITALS: BP 162/67
--- NOTE | 2021-08-25 06:04 | NUR ---
Pt awake all night sitting calmly in her chair. Continues to be delusional; refusing all medications. UA collected and sent to lab. Negative results.
[2021-08-25] MEDS: MULTIVITAMIN with MINERAL TABLET. PO SCH (08:35)
[2021-08-25] MEDS: LACTOBACILLUS RHAMNOSUS GG 1 CAPSULE. PO SCH ×2 (08:36→20:15)
[2021-08-25] MEDS: BENZTROPINE MESYLATE 0.5 MG TABLET PO SCH (08:36)
--- NOTE | 2021-08-25 14:48 | NUR ---
Nursing note: Patient in dinning room for assessment & medication. She is compliant with medications taken whole with encouragement. She is A/O X3, unable to report situation & initially reported wrong year of . She denies pain/discomfort at this time. She made no statements about being . Patient is very garbled when she speaks making it hard to understand her. She is calm, & cooperative. She joined the day room & groups through the day. She ambulates independently with walker, can be unsteady at times. She is currently in day room. Will continue to monitor.
[2021-08-25 15:43] VITALS: BP 134/86
[2021-08-25] MEDS: DIVALPROEX ER 250 MG TAB.ER.24H. PO SCH (20:14)
[2021-08-25] MEDS: DIVALPROEX ER 500 MG TAB.ER.24H PO SCH (20:15)
[2021-08-25] MEDS: risperiDONE 1 MG TABLET. PO SCH (20:15)
[2021-08-25] MEDS: ALPRAZolam 0.5 MG TABLET PO SCH (20:17)
[2021-08-25] MEDS: MIRTAZAPINE 7.5 MG TABLET. PO SCH (20:17)
--- NOTE | 2021-08-25 21:16 | PDOC ---
Exam Note: Florencio Note: Please also refer to the separate dictated note~for this date of service dictated separately.~Patient seen individually. Discussed the patient with Nursing staff reviewed the chart.~Reviewed interim history and current functioning. Reviewed vital signs,~Labs/ Radiology~and current medications noted below. Continue current treatment with the changes noted in the dictated addendum note Assessment: Vital Signs/I&O: Vital Signs Date Time Temp Pulse Resp B/P (MAP) Pulse Ox O2 Delivery O2 Flow Rate FiO2 08/25/21 15:43 98.4 50 18 134/86 (102) 97 08/23/21 06:29 Room Air 0.0 I & O 08/24/21 08/24/21 08/25/21 15:00 23:00 07:00 Intake Total 580 ml 340 ml Balance 580 ml 340 ml Labs: Laboratory Tests Test 08/25/21 00:05 08/25/21 07:32 Urine Collection Type Unknown Urine Color Yellow Urine Clarity Clear Urine pH 7.0 Urine Specific [place] 1.025 Urine Protein Neg (NEG-TRACE) Urine Glucose (UA) Neg mg/dL (NEG) Urine Ketones (Stick) Neg mg/dL (NEG) Urine Blood Neg (NEG) Urine Nitrite Neg (NEG) Urine Bilirubin Neg (NEG) Urine Urobilinogen Dipstick 0.2 mg/dL (0.2 mg/dL) Urine Leukocyte Esterase Neg (NEG) Urine RBC 0 /HPF (0-2) Urine WBC 1-4 /HPF (0-4) Urine Squamous Epithelial Cells Few /LPF Urine Bacteria 0 /HPF (0-FEW) POC SARS CoV-2 Antigen Negative (NEGATIVE) Current Medications: Meds: Laboratory Tests Test 08/25/21 00:05 08/25/21 07:32 Urine Collection Type Unknown Urine Color Yellow Urine Clarity Clear Urine pH 7.0 Urine Specific [place] 1.025 Urine Protein Neg Urine Glucose (UA) Neg mg/dL Urine Ketones (Stick) Neg mg/dL Urine Blood Neg Urine Nitrite Neg Urine Bilirubin Neg Urine Urobilinogen Dipstick 0.2 mg/dL Urine Leukocyte Esterase Neg Urine RBC 0 /HPF Urine WBC 1-4 /HPF Urine Squamous Epithelial Cells Few /LPF Urine Bacteria 0 /HPF POC SARS CoV-2 Antigen Negative Current Medications Medications (Trade) Dose Ordered Sig/Dawit Route PRN Reason Start Time Stop Time Status Last Admin Dose Admin Acetaminophen (Tylenol) 650 mg PRN Q6HRS PRN PO MILD PAIN / TEMP > 100.3'F 07/29/21 16:15 08/05/21 03:07 Multi-Ingredient Ointment (Analgesic [place]) 1 paulo PRN QID PRN TP MUSCLE PAIN 07/29/21 16:15 Al Hydroxide/Mg Hydroxide (Mylanta Plus Xs) 15 ml PRN AFTMEALHC PRN PO DYSPEPSIA 07/29/21 16:15 Magnesium Hydroxide (Milk Of Magnesia) 2,400 mg PRN QHS PRN PO CONSTIPATION 07/29/21 16:15 Aripiprazole (Abilify) 15 mg DAILY PO 07/30/21 09:00 08/03/21 18:42 DC 08/03/21 08:43 Nystatin (Nystop) 1 paulo PRN BID PRN TP RASH 07/29/21 16:15 08/03/21 10:30 Alprazolam (Xanax) 1 mg HS PO 07/29/21 21:00 08/24/21 16:39 DC 08/23/21 21:17 Zinc Acetate/ Diphenhydramine (Benadryl Topical) 1 paulo PRN TID PRN TP ITCHY SKIN 07/29/21 16:30 Vitamin D (Vitamin D3) 50,000 unit WEEKLY PO 08/02/21 09:00 08/23/21 09:02 Multivitamins/ Calcium (Thera-M Plus) 1 tab DAILY PO 07/30/21 09:00 08/25/21 08:35 Olanzapine (ZyPREXA ZYDIS) 2.5 mg PRN Q2HR PRN PO PSYCHOSIS 07/30/21 11:15 08/13/21 21:05 Trazodone HCl (Desyrel) 50 mg PRN QHS PRN PO INSOMNIA, MAY REPEAT X1 07/30/21 11:15 08/01/21 12:48 DC 07/30/21 20:41 Divalproex Sodium (Depakote Er) 500 mg QHS PO 07/31/21 21:00 08/03/21 18:58 DC 08/02/21 20:01 Levofloxacin (Levaquin) 250 mg DAILY06 PO 08/02/21 06:00 08/06/21 23:00 DC 08/06/21 06:28 Lactobacillus Rhamnosus (Culturelle) 1 cap BID PO 08/03/21 09:00 08/25/21 20:15 Risperidone (RisperDAL) 0.5 mg QHS PO 08/03/21 21:00 08/12/21 17:27 DC 08/11/21 20:30 Divalproex Sodium (Depakote Er) 250 mg HS PO 08/03/21 21:00 08/25/21 20:14 Divalproex Sodium (Depakote Er) 500 mg HS PO 08/03/21 21:00 08/25/21 20:15 Risperidone (RisperDAL) 1 mg QHS PO 08/12/21 21:00 08/25/21 20:15 Trazodone HCl (Desyrel) 50 mg PRN QHS PRN PO INSOMNIA, MAY REPEAT X1 08/12/21 17:30 08/18/21 20:54 Benztropine Mesylate (Cogentin) 0.5 mg DAILY PO 08/14/21 09:00 08/25/21 08:36 Olanzapine (ZyPREXA ZYDIS) 5 mg 1X PRN PO PSYCHOSIS 08/20/21 12:15 08/21/21 07:44 DC Olanzapine (ZyPREXA ZYDIS) 5 mg PRN 1X PRN PO SEE LABEL COMMENT 08/21/21 07:45 Alprazolam (Xanax) 0.5 mg HS PO 08/24/21 21:00 08/25/21 20:17 Mirtazapine (Remeron) 7.5 mg QHS PO 08/25/21 21:00 08/25/21 20:17 Current Medications Medications (Trade) Dose Ordered Sig/Dawit Route PRN Reason Start Time Stop Time Status Last Admin Dose Admin Mirtazapine (Remeron) 7.5 mg QHS PO 08/25/21 21:00 08/25/21 20:17 I have reviewed the current psychotropics carefully including drug interactions. Risk benefit ratio favors no change other than as noted in my dictated progress note. Diagnosis: Problems: (1) Schizoaffective disorder, bipolar type (2) Impulse control disorder, unspecified (3) Mild cognitive impairment (4) Anxiety disorder, unspecified (5) Schizophrenia, paranoid, chronic with acute exacerbation (6) Bipolar disorder, current episode mixed, severe, with psychotic features SUSAN,MAN M MD Aug 25, 2021 21:16
--- NOTE | 2021-08-25 23:03 | NUR ---
Pt compliant with whole medications and shower this evening. No delusions noted. Calm and withdrawn.
[2021-08-26 05:53] VITALS: BP 120/69
--- NOTE | 2021-08-26 06:08 | PDOC ---
Exam Note: Florencio Note: This note is for 08/25/2021 covers elements not covered in my initial note. Subjective: The patient was seen individually on 08/25/2021, discussed and reviewed the chart with Kira SIMON. The patient did not sleep at all last night. Reportedly last night she told the nursing staff that she was , refused her medications because of this. She has not repeated it today but has been little resistive with medications but took it later. Review of Systems: Ambulation impaired. No CV, , pulmonary, eye system symptoms on review. She complains of some pedal edema. Mental Status Exam: The patient is oriented to herself and situation. I met with her at the dining room after her supper. Speech garbled due to dysarthria. Abstraction fair. Computation impaired. Language function intact. Attention span fair. Mood and affect anxious. Laboratory Data: Reviewed. Impression: Schizoaffective disorder, bipolar type, with psychotic features. Anxiety disorder unspecified. Impulse control disorder unspecified. Plan: We will continue current psychotropics mentioned in my initial note. Reviewed drug interactions, risk-benefit ratio. Given her marked insomnia despite trazodone we will add Remeron 7.5 mg p.o. h.s. We may need to increase this gradually. Assessment: Vital Signs/I&O: Vital Signs Date Time Temp Pulse Resp B/P (MAP) Pulse Ox O2 Delivery O2 Flow Rate FiO2 08/26/21 05:53 97.8 50 16 120/69 (86) 100 08/23/21 06:29 Room Air 0.0 I & O 08/25/21 08/25/21 08/26/21 15:00 23:00 07:00 Intake Total 580 ml 480 ml Balance 580 ml 480 ml Labs: Laboratory Tests Test 08/25/21 07:32 POC SARS CoV-2 Antigen Negative (NEGATIVE) Current Medications: Meds: Current Medications Medications (Trade) Dose Ordered Sig/Dawit Route PRN Reason Start Time Stop Time Status Last Admin Dose Admin Mirtazapine (Remeron) 7.5 mg QHS PO 08/25/21 21:00 08/25/21 20:17 I have reviewed the current psychotropics carefully including drug interactions. Risk benefit ratio favors no change other than as noted in my dictated progress note. Diagnosis: Problems: (1) Schizoaffective disorder, bipolar type (2) Impulse control disorder, unspecified (3) Mild cognitive impairment (4) Anxiety disorder, unspecified (5) Schizophrenia, paranoid, chronic with acute exacerbation (6) Bipolar disorder, current episode mixed, severe, with psychotic features PATRIC DAVIS MD Aug 26, 2021 06:07
[2021-08-26] MEDS: LACTOBACILLUS RHAMNOSUS GG 1 CAPSULE. PO SCH ×2 (08:57→20:23)
[2021-08-26] MEDS: MULTIVITAMIN with MINERAL TABLET. PO SCH (08:57)
[2021-08-26] MEDS: BENZTROPINE MESYLATE 0.5 MG TABLET PO SCH (08:57)
[2021-08-26] MEDS ORDERED: hydrOXYzine HCL 10 MG TABLET PO PRN (12:00)
--- NOTE | 2021-08-26 13:47 | NUR ---
Nsg Note; Sanam has been calm and cooperative. She eats her meals and takes her meds whole. she amb indep with walker. she is currently in the dayroom participating in group
[2021-08-26 15:40] VITALS: BP 102/54
[2021-08-26] MEDS: DIVALPROEX ER 250 MG TAB.ER.24H. PO SCH (20:22)
[2021-08-26] MEDS: DIVALPROEX ER 500 MG TAB.ER.24H PO SCH (20:23)
[2021-08-26] MEDS: risperiDONE 1 MG TABLET. PO SCH (20:23)
[2021-08-26] MEDS: MIRTAZAPINE 7.5 MG TABLET. PO SCH (20:23)
[2021-08-26] MEDS: ALPRAZolam 0.5 MG TABLET PO SCH (20:29)
--- NOTE | 2021-08-26 21:24 | PDOC ---
Exam Note: Florencio Note: Please also refer to the separate dictated note~for this date of service dictated separately.~Patient seen individually. Discussed the patient with Nursing staff reviewed the chart.~Reviewed interim history and current functioning. Reviewed vital signs,~Labs/ Radiology~and current medications noted below. Continue current treatment with the changes noted in the dictated addendum note Assessment: Vital Signs/I&O: Vital Signs Date Time Temp Pulse Resp B/P (MAP) Pulse Ox O2 Delivery O2 Flow Rate FiO2 08/26/21 15:40 98.8 62 16 102/54 (70) 96 Room Air 08/23/21 06:29 0.0 I & O 08/25/21 08/25/21 08/26/21 15:00 23:00 07:00 Intake Total 580 ml 480 ml Balance 580 ml 480 ml Current Medications: Meds: Current Medications Medications (Trade) Dose Ordered Sig/Dawit Route PRN Reason Start Time Stop Time Status Last Admin Dose Admin Acetaminophen (Tylenol) 650 mg PRN Q6HRS PRN PO MILD PAIN / TEMP > 100.3'F 07/29/21 16:15 08/05/21 03:07 Multi-Ingredient Ointment (Analgesic [place]) 1 paulo PRN QID PRN TP MUSCLE PAIN 07/29/21 16:15 Al Hydroxide/Mg Hydroxide (Mylanta Plus Xs) 15 ml PRN AFTMEALHC PRN PO DYSPEPSIA 07/29/21 16:15 Magnesium Hydroxide (Milk Of Magnesia) 2,400 mg PRN QHS PRN PO CONSTIPATION 07/29/21 16:15 Aripiprazole (Abilify) 15 mg DAILY PO 07/30/21 09:00 08/03/21 18:42 DC 08/03/21 08:43 Nystatin (Nystop) 1 paulo PRN BID PRN TP RASH 07/29/21 16:15 08/03/21 10:30 Alprazolam (Xanax) 1 mg HS PO 07/29/21 21:00 08/24/21 16:39 DC 08/23/21 21:17 Zinc Acetate/ Diphenhydramine (Benadryl Topical) 1 paulo PRN TID PRN TP ITCHY SKIN 07/29/21 16:30 Vitamin D (Vitamin D3) 50,000 unit WEEKLY PO 08/02/21 09:00 08/23/21 09:02 Multivitamins/ Calcium (Thera-M Plus) 1 tab DAILY PO 07/30/21 09:00 08/26/21 08:57 Olanzapine (ZyPREXA ZYDIS) 2.5 mg PRN Q2HR PRN PO PSYCHOSIS 07/30/21 11:15 08/13/21 21:05 Trazodone HCl (Desyrel) 50 mg PRN QHS PRN PO INSOMNIA, MAY REPEAT X1 07/30/21 11:15 08/01/21 12:48 DC 07/30/21 20:41 Divalproex Sodium (Depakote Er) 500 mg QHS PO 07/31/21 21:00 08/03/21 18:58 DC 08/02/21 20:01 Levofloxacin (Levaquin) 250 mg DAILY06 PO 08/02/21 06:00 08/06/21 23:00 DC 08/06/21 06:28 Lactobacillus Rhamnosus (Culturelle) 1 cap BID PO 08/03/21 09:00 08/26/21 20:23 Risperidone (RisperDAL) 0.5 mg QHS PO 08/03/21 21:00 08/12/21 17:27 DC 08/11/21 20:30 Divalproex Sodium (Depakote Er) 250 mg HS PO 08/03/21 21:00 08/26/21 20:22 Divalproex Sodium (Depakote Er) 500 mg HS PO 08/03/21 21:00 08/26/21 20:23 Risperidone (RisperDAL) 1 mg QHS PO 08/12/21 21:00 08/26/21 20:23 Trazodone HCl (Desyrel) 50 mg PRN QHS PRN PO INSOMNIA, MAY REPEAT X1 08/12/21 17:30 08/18/21 20:54 Benztropine Mesylate (Cogentin) 0.5 mg DAILY PO 08/14/21 09:00 08/26/21 08:57 Olanzapine (ZyPREXA ZYDIS) 5 mg 1X PRN PO PSYCHOSIS 08/20/21 12:15 08/21/21 07:44 DC Olanzapine (ZyPREXA ZYDIS) 5 mg PRN 1X PRN PO SEE LABEL COMMENT 08/21/21 07:45 Alprazolam (Xanax) 0.5 mg HS PO 08/24/21 21:00 08/26/21 20:29 Mirtazapine (Remeron) 7.5 mg QHS PO 08/25/21 21:00 08/26/21 20:23 Hydroxyzine HCl (Atarax) 10 mg PRN Q6HRS PRN PO ITCHING 08/26/21 12:00 I have reviewed the current psychotropics carefully including drug interactions. Risk benefit ratio favors no change other than as noted in my dictated progress note. Diagnosis: Problems: (1) Schizoaffective disorder, bipolar type (2) Impulse control disorder, unspecified (3) Mild cognitive impairment (4) Anxiety disorder, unspecified (5) Schizophrenia, paranoid, chronic with acute exacerbation (6) Bipolar disorder, current episode mixed, severe, with psychotic features PATRIC DAVIS MD Aug 26, 2021 21:24
--- NOTE | 2021-08-27 00:17 | NUR ---
Nursing Note The patient was located in her room for her assessment and medication pass. The patient was alert to name, date and location. The patient was compliant with her medications and took them whole. The patient is currently sleeping in her room.
[2021-08-27 06:18] VITALS: BP 137/95
[2021-08-27] MEDS: MULTIVITAMIN with MINERAL TABLET. PO SCH (08:21)
[2021-08-27] MEDS: LACTOBACILLUS RHAMNOSUS GG 1 CAPSULE. PO SCH ×2 (08:21→20:20)
[2021-08-27] MEDS: BENZTROPINE MESYLATE 0.5 MG TABLET PO SCH (08:21)
--- NOTE | 2021-08-27 08:39 | PDOC ---
Exam Note: Florencio Note: This note is for 08/26/2021 covers elements not covered in my initial note. Subjective: The patient was seen individually on 08/26/2021, discussed and reviewed the chart with Radha SIMON. The patient slept 6-1/4 previous night. I met with her in her room. Overall she has done better. She is less paranoid, delusional. She states she is keeping her lower extremities raised on account of pedal edema, somewhat isolative. Review of Systems: Ambulation impaired. No CV, , pulmonary, eye system symptoms on review. Mental Status Exam: The patient is oriented to herself and situation. Speech garbled due to dysarthria. Abstraction fair. Computation impaired. Language function intact. Attention span fair. Mood and affect anxious. Laboratory Data: Reviewed. Impression: Schizoaffective disorder, bipolar type, with psychotic features. Anxiety disorder unspecified. Impulse control disorder unspecified. Plan: We will continue current psychotropics mentioned in my initial note. Reviewed drug interactions, risk-benefit ratio. Assessment: Vital Signs/I&O: Vital Signs Date Time Temp Pulse Resp B/P (MAP) Pulse Ox O2 Delivery O2 Flow Rate FiO2 08/27/21 06:18 98.1 64 20 137/95 (109) 95 Room Air 08/23/21 06:29 0.0 I & O 08/26/21 08/26/21 08/27/21 15:00 23:00 07:00 Intake Total 840 ml 600 ml Balance 840 ml 600 ml Current Medications: I have reviewed the current psychotropics carefully including drug interactions. Risk benefit ratio favors no change other than as noted in my dictated progress note. Diagnosis: Problems: (1) Schizoaffective disorder, bipolar type (2) Impulse control disorder, unspecified (3) Mild cognitive impairment (4) Anxiety disorder, unspecified (5) Schizophrenia, paranoid, chronic with acute exacerbation (6) Bipolar disorder, current episode mixed, severe, with psychotic features PATRIC DAVIS MD Aug 27, 2021 08:39
--- NOTE | 2021-08-27 11:25 | NUR ---
WEEKLY ACTIVITY THERAPY NOTE Date of Admission:07/29/21 Date of AT Assessment: 07/30 Precipitating behaviors that initiated intake and admission: paranoia, packing bags to leave home, delusional, thinks someone is trying to steal her stuff, hiding knives, writing her name all over her clothes with a sharpie, insomnia, periods of aggression Goal aimed: increase socialization and engagement Initial Goal: Pt will participate in at least three Activity Therapy sessions per week Goal changed 08/20:Pt. will participate in at least five Activity Therapy sessions before discharge Weekly progress towards goal: achieve, 5/ Group participation level: 2 min, 1 mod, 1 full Weekly highlights: guessed tribonds and participated in exercises Tuesday, participated in Name 5 activity Tuesday, sang along to one [employer] [employer] song Tuesday, guessed picture man puzzle and listened to music Tuesday, participated in memory game and smiled often during Tuesday group Behaviors observed: direct prompting needed at times Plan: no change to goal-pending discharge 08/02 Beneficial adaptations: direct prompting
--- NOTE | 2021-08-27 12:54 | NUR ---
Nsg Note; Sanam has been calm, pleasant and cooperative today. She feeds herself and takes her meds whole. she amb indep and remembers to take her walker with her.
--- NOTE | 2021-08-27 13:45 | NUR ---
Wound Care Wound Type/Assessment: patient seen for a follow up of wound care consult. see wound assessment. patient has dry crusty red non granulated small round open areas with scratches to the right hip, the left hip has dry crusty red non granulated areas but no scratches, patient says they itch these areas were cleaned, measured, and applied cream at this time. Treatment Recommendations/Plan: Recommendations of Cleansing the area then apply A &D ointment, BID and PRN and leave BUSINESS SYSTEMS ADMINISTRATOR Education provided: Educated patient about the POC with her wounds Offloading surface/device: N/A Recommended Referrals/Tests: Took a culture of the right hip wounds- as wounds have not changed. Notified RN to speak with PCP regarding the recommendations of a culture. Discharge Recommendations for dressings: Wound care will continue to f/u. Notified RN about the POC
--- NOTE | 2021-08-27 14:15 | NUR ---
Pascual Note; Wound culture obtained by WC of right hip wound and sent to lab
--- NOTE | 2021-08-27 14:26 | NUR ---
SW received an email from the family making sure they have everything needed in order to have pt discharged. Instead of Tuesday, pt will be discharging on Tuesday for transportation purposes. SW sent a follow up email to address their concerns. The email went as follows: "I wanted to let you know that the discharge date for my mother has changed to Tuesday, September 01. We are arranging transport for her to [facility] and will let you know the time cheyanne. Let's wait until next Tuesday to tell her she is going to a new facility where they will continue her care at a doctor's recommendation. That way she only has 1 day to fret it. Let me know if you have any difficulties ordering her walker and shower seat. We would also like to have the revised papers (bladder vs bowel incontinence) in hand by her discharge date as well". HAY response: I do have the correction for the letter and can get that correction emailed. Tuesday is just fine. Please just let me know the time so I can make sure nursing have everything completed that they will need. I will let you know that they typically request any time after 10AM. This gives them the ability to get through shift change, breakfast and morning med pass. I can definitely get the walker ordered; they will deliver it here no later than Tuesday. However, they will not allow the shower chair. Things have changed in DME world since I worked it and they no longer cover them. Most places like [employer], [email or web address], [employer] etc. will have them. Some [employer] will accept gently used ones (tung I know), but its an option if we want to not go too crazy with money.
[2021-08-27 15:35] VITALS: BP 117/78
--- NOTE | 2021-08-27 16:56 | NUR ---
Treatment team update: Pt is eating 75% of meals and sleeping on average 5 hours per night. Pt is cooperative with cares and compliant with medications; but does continue to have delusions, such as her being and no longer a Pfaffly and noted to be playing a piano or conducting an orchestra. Pt attended five groups with minimal to moderate participation at times need prompting. Pt was accepted to [facility] and will discharge on Sunday 07/02; pt family to schedule transportation. SW will finalize all discharge plans.
--- NOTE | 2021-08-27 17:19 | TX PLAN ---
Interdisciplinary Tx Plan Admission Information Jul 29, 2021 at 15:45 Legal Status (on Admission): Voluntary DPOA/Guardian Name: Michelle Scruggs Contact Other Contact Verified Code Status: Full Code Allergies: Coded Allergies: haloperidol (Verified Allergy, Intermediate, 07/29/21) Diagnoses Primary Diagnosis: Schiizophrenia with acute exacerbation Reasons for Admission: Delusions, Suspicious/paranoid, Poor impulse control, Other Problem in Patient's Words: Not consistently taking her medications and had a few medication changes that may not be appropriate for her at this time. Additional Admission Comments: According to the intake, pt took a sharpie and wrote names all over her clothing, hiding knives , packing various items around the house, delusional and thinks someone is stealing her stuff. Problems Active Problems: withdrawn delusional Inactive Problems: medication compliant Pt Strengths/Limitations Ability for [place]: Poor Cognitive Functioning/Ability: Fair Communication Skills/Ability: Fair Financial Resources: Fair Insight/Judgement: Poor Intellectual Ability: Fair Physical Health: Fair Social Skills: Fair Stability in Family: Excellent Stability in School/Work: Poor Verbal Skills: Fair Discharge Criteria Discharge Criteria: Adequate arrangements @DC, Improved behavior, Improved mood/thought Preliminary Discharge Plan Preliminary DC Plan: Current Living Arrange., Other Special Precautions Fall Risk: Low Initial D/C Plan Pt may discharge home. Identified Discharge Needs: considering possible referral for placement Currently Utilized Resources Currently Utilized Resources/P: PCP Identified Problems/Hx/Goals Objectives/Short-Term Goals Short Term Goals: Dec. Hallucination/Delus, Dec. Outbursts, Medication Stabilization, Prevent Deterioration, Promote Coping Skill Short Term Goals in Patient's: n/a Interventions/Frequency Staff Interventions/Frequency&: Psychiatrist to assess pt at least 3x per week for medication management. Social Work to assess pt at least 2x per week to identify barriers to care and discharge planning goals Nursing to assess behavior modification, medication effects and complete 15 minute checks daily. Encourage participation in group activities (if applicable) or 1:1 engagement based off activity dept goals. 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 (-) Education: Pt did graduate from high school (12th grade). Community Follow-up PCP follow-up Treatment Plan Explained Patient/Admiralty Lawyer had this treatment plan explained to him/her as indicated by the signature below and has been given the opportunity to ask questions and make suggestions: Date: Patient/Admiralty Lawyer Signature: Status Update Update Pt is eating 75% of meals and sleeping on average 5 hours per night. Pt is cooperative with cares and compliant with medications; but does continue to have delusions, such as her being and no longer a Pfaffly and noted to be playing a piano or conducting an orchestra. Pt attended five groups with minimal to moderate participation at times need prompting. Pt was accepted to [facility] and will discharge on Sunday 07/02; pt family to schedule transportation. SW will finalize all discharge plans. BARBARA FRANCIS Aug 27, 2021 17:19
[2021-08-27] MEDS: DIVALPROEX ER 250 MG TAB.ER.24H. PO SCH (20:20)
[2021-08-27] MEDS: DIVALPROEX ER 500 MG TAB.ER.24H PO SCH (20:21)
[2021-08-27] MEDS: MIRTAZAPINE 7.5 MG TABLET. PO SCH (20:21)
[2021-08-27] MEDS: risperiDONE 1 MG TABLET. PO SCH (20:21)
[2021-08-27] MEDS: ALPRAZolam 0.5 MG TABLET PO SCH (20:23)
--- NOTE | 2021-08-27 22:01 | PDOC ---
Exam Note: Florencio Note: Please also refer to the separate dictated note~for this date of service dictated separately.~Patient seen individually. Discussed the patient with Nursing staff reviewed the chart.~Reviewed interim history and current functioning. Reviewed vital signs,~Labs/ Radiology~and current medications noted below. Continue current treatment with the changes noted in the dictated addendum note Assessment: Vital Signs/I&O: Vital Signs Date Time Temp Pulse Resp B/P (MAP) Pulse Ox O2 Delivery O2 Flow Rate FiO2 08/27/21 15:35 97.9 75 18 117/78 (91) 95 08/27/21 06:18 Room Air 08/23/21 06:29 0.0 I & O 0 08/26/21 08/26/21 08/27/21 15:00 23:00 07:00 Intake Total 840 ml 600 ml Balance 840 ml 600 ml Current Medications: Meds: Current Medications Medications (Trade) Dose Ordered Sig/Dawit Route PRN Reason Start Time Stop Time Status Last Admin Dose Admin Acetaminophen (Tylenol) 650 mg PRN Q6HRS PRN PO MILD PAIN / TEMP > 100.3'F 07/29/21 16:15 08/05/21 03:07 Multi-Ingredient Ointment (Analgesic [place]) 1 paulo PRN QID PRN TP MUSCLE PAIN 07/29/21 16:15 Al Hydroxide/Mg Hydroxide (Mylanta Plus Xs) 15 ml PRN AFTMEALHC PRN PO DYSPEPSIA 07/29/21 16:15 Magnesium Hydroxide (Milk Of Magnesia) 2,400 mg PRN QHS PRN PO CONSTIPATION 07/29/21 16:15 Aripiprazole (Abilify) 15 mg DAILY PO 07/30/21 09:00 08/03/21 18:42 DC 08/03/21 08:43 Nystatin (Nystop) 1 paulo PRN BID PRN TP RASH 07/29/21 16:15 08/03/21 10:30 Alprazolam (Xanax) 1 mg HS PO 07/29/21 21:00 08/24/21 16:39 DC 08/23/21 21:17 Zinc Acetate/ Diphenhydramine (Benadryl Topical) 1 paulo PRN TID PRN TP ITCHY SKIN 07/29/21 16:30 Vitamin D (Vitamin D3) 50,000 unit WEEKLY PO 08/02/21 09:00 08/23/21 09:02 Multivitamins/ Calcium (Thera-M Plus) 1 tab DAILY PO 07/30/21 09:00 08/27/21 08:21 Olanzapine (ZyPREXA ZYDIS) 2.5 mg PRN Q2HR PRN PO PSYCHOSIS 07/30/21 11:15 08/13/21 21:05 Trazodone HCl (Desyrel) 50 mg PRN QHS PRN PO INSOMNIA, MAY REPEAT X1 07/30/21 11:15 08/01/21 12:48 DC 07/30/21 20:41 Divalproex Sodium (Depakote Er) 500 mg QHS PO 07/31/21 21:00 08/03/21 18:58 DC 08/02/21 20:01 Levofloxacin (Levaquin) 250 mg DAILY06 PO 08/02/21 06:00 08/06/21 23:00 DC 08/06/21 06:28 Lactobacillus Rhamnosus (Culturelle) 1 cap BID PO 08/03/21 09:00 08/27/21 20:20 Risperidone (RisperDAL) 0.5 mg QHS PO 08/03/21 21:00 08/12/21 17:27 DC 08/11/21 20:30 Divalproex Sodium (Depakote Er) 250 mg HS PO 08/03/21 21:00 08/27/21 20:20 Divalproex Sodium (Depakote Er) 500 mg HS PO 08/03/21 21:00 08/27/21 20:21 Risperidone (RisperDAL) 1 mg QHS PO 08/12/21 21:00 08/27/21 20:21 Trazodone HCl (Desyrel) 50 mg PRN QHS PRN PO INSOMNIA, MAY REPEAT X1 08/12/21 17:30 08/18/21 20:54 Benztropine Mesylate (Cogentin) 0.5 mg DAILY PO 08/14/21 09:00 08/27/21 08:21 Olanzapine (ZyPREXA ZYDIS) 5 mg 1X PRN PO PSYCHOSIS 08/20/21 12:15 08/21/21 07:44 DC Olanzapine (ZyPREXA ZYDIS) 5 mg PRN 1X PRN PO SEE LABEL COMMENT 08/21/21 07:45 Alprazolam (Xanax) 0.5 mg HS PO 08/24/21 21:00 08/27/21 20:23 Mirtazapine (Remeron) 7.5 mg QHS PO 08/25/21 21:00 08/27/21 20:21 Hydroxyzine HCl (Atarax) 10 mg PRN Q6HRS PRN PO ITCHING 08/26/21 12:00 I have reviewed the current psychotropics carefully including drug interactions. Risk benefit ratio favors no change other than as noted in my dictated progress note. Diagnosis: Problems: (1) Schizoaffective disorder, bipolar type (2) Impulse control disorder, unspecified (3) Mild cognitive impairment (4) Anxiety disorder, unspecified (5) Schizophrenia, paranoid, chronic with acute exacerbation (6) Bipolar disorder, current episode mixed, severe, with psychotic features PATRIC DAVIS MD Aug 27, 2021 22:01
--- NOTE | 2021-08-28 00:50 | NUR ---
Nursing Note The patient was located in her room for her assessment and medication pass. The patients speech remains difficult to decipher at times due to garbled speech. The patient was alert to name, date and location. The patient was pleasant during interactions with this nurse and other nursing staff. The patient remained in her room for majority of shift. The patient took her medications whole. The patient is currently sleeping in her room.
[2021-08-28 06:24] VITALS: BP_SYST 126; BP_SYST 153; BP_DIAS 64; BP_DIAS 69
--- NOTE | 2021-08-28 08:46 | PDOC ---
Exam Note: Florencio Note: This note is a late entry for 08/27/2021 covers elements not covered in my initial note. Subjective: The patient was reviewed at treatment team meeting individually in the morning on 08/27/2021 with Sofie Abdi, Laurie Light, and Irena Herrera (social director), Floridalma, activity therapy, and Radha SIMON, discussed and reviewed the chart. The patient slept 8 previous night. Discussed with Usman SIMON in the evening. Overall the patient remains isolative in her room, very pleasant, cooperative, still somewhat delusional about her last name and being but less fixated on this as I addressed this with her in the evening. At one point she was noted for extended period of time putting her arms up as if she is playing the piano. Average sleep about 8 hours. Appetite 75%. She attended 5 groups in the past one week and does very well with the Regroup Therapy group. I met with the patient again in the evening in her room. She was lying in bed, legs raised. Pedal edema is better. Review of Systems: Ambulation impaired. No CV, , pulmonary, eye system symp toms on review. Mental Status Exam: The patient is oriented to herself and situation. Speech unchanged, consequent to dysarthria. Abstraction fair. Computation impaired. Language function intact. Attention span fair. Mood and affect anxious. Laboratory Data: Reviewed. Impression: Schizoaffective disorder, bipolar type, with psychotic features. Anxiety disorder unspecified. Impulse control disorder unspecified. Plan: We will continue current psychotropics mentioned in my initial note. Reviewed drug interactions, risk-benefit ratio. Transition her to [facility] next Tuesday. Assessment: Vital Signs/I&O: Vital Signs Date Time Temp Pulse Resp B/P (MAP) Pulse Ox O2 Delivery O2 Flow Rate FiO2 08/28/21 06:24 97.9 69 19 126/69 (88) 95 08/27/21 06:18 Room Air 08/23/21 06:29 0.0 I & O 08/27/21 08/27/21 08/28/21 14:59 22:59 06:59 Intake Total 720 ml 480 ml Balance 720 ml 480 ml Current Medications: I have reviewed the current psychotropics carefully including drug interactions. Risk benefit ratio favors no change other than as noted in my dictated progress note. Diagnosis: Problems: (1) Schizoaffective disorder, bipolar type (2) Impulse control disorder, unspecified (3) Mild cognitive impairment (4) Anxiety disorder, unspecified (5) Schizophrenia, paranoid, chronic with acute exacerbation (6) Bipolar disorder, current episode mixed, severe, with psychotic features PATRIC DAVIS MD Aug 28, 2021 08:46
[2021-08-28] MEDS: MULTIVITAMIN with MINERAL TABLET. PO SCH (09:00)
[2021-08-28] MEDS: LACTOBACILLUS RHAMNOSUS GG 1 CAPSULE. PO SCH ×2 (09:00→19:44)
[2021-08-28] MEDS: BENZTROPINE MESYLATE 0.5 MG TABLET PO SCH (09:50)
--- NOTE | 2021-08-28 11:14 | RAD ---
Plain film abdominal examination consisting of 1 view(s) of the abdomen. History: Nausea and vomiting Comparison: None. There is no bowel dilation. There is a moderate amount of fecal material throughout the colon. Gas is seen in the rectum, and the bowel gas pattern is non-obstructive. No organomegaly or abnormal calci fications are seen. Mild scoliosis of the lumbar spine. Impression: 1. Moderate amount of fecal material throughout the colon. Electronically signed by: Jose Miles MD (08/28/2021 11:12 AM) [id number]
[2021-08-28 17:16] VITALS: BP 123/50
--- NOTE | 2021-08-28 18:05 | NUR ---
Pt observed in her room and in the dining room during the morning. She was throwing up and nauseated. Vitals were taken and notified, pt c/o stomach upset and received Mylanta 15 ml po prn. Within an hour, pt stated she was feeling better. As the day progressed, pt ate about 50% of dinner and stated, she was feeling better. Pt was encouraged to drink and iced water was offered . Will continue to monitor for safety.
[2021-08-28] MEDS: DIVALPROEX ER 500 MG TAB.ER.24H PO SCH (19:44)
[2021-08-28] MEDS: risperiDONE 1 MG TABLET. PO SCH (19:44)
[2021-08-28] MEDS: MIRTAZAPINE 7.5 MG TABLET. PO SCH (19:44)
[2021-08-28] MEDS: DIVALPROEX ER 250 MG TAB.ER.24H. PO SCH (19:44)
[2021-08-28] MEDS: ALPRAZolam 0.5 MG TABLET PO SCH (19:49)
--- NOTE | 2021-08-28 21:32 | PDOC ---
Exam Note: Florencio Note: Please also refer to the separate dictated note~for this date of service dictated separately.~Patient seen individually. Discussed the patient with Nursing staff reviewed the chart.~Reviewed interim history and current functioning. Reviewed vital signs,~Labs/ Radiology~and current medications noted below. Continue current treatment with the changes noted in the dictated addendum note Assessment: Vital Signs/I&O: Vital Signs Date Time Temp Pulse Resp B/P (MAP) Pulse Ox O2 Delivery O2 Flow Rate FiO2 08/28/21 17:16 98.9 45 18 123/50 (74) 98 08/27/21 06:18 Room Air 08/23/21 06:29 0.0 I & O 0 08/27/21 08/27/21 08/28/21 15:00 23:00 07:00 Intake Total 720 ml 480 ml Balance 720 ml 480 ml Current Medications: Meds: Current Medications Medications (Trade) Dose Ordered Sig/Dawit Route PRN Reason Start Time Stop Time Status Last Admin Dose Admin Acetaminophen (Tylenol) 650 mg PRN Q6HRS PRN PO MILD PAIN / TEMP > 100.3'F 07/29/21 16:15 08/05/21 03:07 Multi-Ingredient Ointment (Analgesic [place]) 1 paulo PRN QID PRN TP MUSCLE PAIN 07/29/21 16:15 Al Hydroxide/Mg Hydroxide (Mylanta Plus Xs) 15 ml PRN AFTMEALHC PRN PO DYSPEPSIA 07/29/21 16:15 08/28/21 09:48 Magnesium Hydroxide (Milk Of Magnesia) 2,400 mg PRN QHS PRN PO CONSTIPATION 07/29/21 16:15 08/28/21 19:49 Aripiprazole (Abilify) 15 mg DAILY PO 07/30/21 09:00 08/03/21 18:42 DC 08/03/21 08:43 Nystatin (Nystop) 1 paulo PRN BID PRN TP RASH 07/29/21 16:15 08/03/21 10:30 Alprazolam (Xanax) 1 mg HS PO 07/29/21 21:00 08/24/21 16:39 DC 08/23/21 21:17 Zinc Acetate/ Diphenhydramine (Benadryl Topical) 1 paulo PRN TID PRN TP ITCHY SKIN 07/29/21 16:30 Vitamin D (Vitamin D3) 50,000 unit WEEKLY PO 08/02/21 09:00 08/23/21 09:02 Multivitamins/ Calcium (Thera-M Plus) 1 tab DAILY PO 07/30/21 09:00 08/27/21 08:21 Olanzapine (ZyPREXA ZYDIS) 2.5 mg PRN Q2HR PRN PO PSYCHOSIS 07/30/21 11:15 08/13/21 21:05 Trazodone HCl (Desyrel) 50 mg PRN QHS PRN PO INSOMNIA, MAY REPEAT X1 07/30/21 11:15 08/01/21 12:48 DC 07/30/21 20:41 Divalproex Sodium (Depakote Er) 500 mg QHS PO 07/31/21 21:00 08/03/21 18:58 DC 08/02/21 20:01 Levofloxacin (Levaquin) 250 mg DAILY06 PO 08/02/21 06:00 08/06/21 23:00 DC 08/06/21 06:28 Lactobacillus Rhamnosus (Culturelle) 1 cap BID PO 08/03/21 09:00 08/28/21 19:44 Risperidone (RisperDAL) 0.5 mg QHS PO 08/03/21 21:00 08/12/21 17:27 DC 08/11/21 20:30 Divalproex Sodium (Depakote Er) 250 mg HS PO 08/03/21 21:00 08/28/21 19:44 Divalproex Sodium (Depakote Er) 500 mg HS PO 08/03/21 21:00 08/28/21 19:44 Risperidone (RisperDAL) 1 mg QHS PO 08/12/21 21:00 08/28/21 19:44 Trazodone HCl (Desyrel) 50 mg PRN QHS PRN PO INSOMNIA, MAY REPEAT X1 08/12/21 17:30 08/18/21 20:54 Benztropine Mesylate (Cogentin) 0.5 mg DAILY PO 08/14/21 09:00 08/28/21 09:50 Olanzapine (ZyPREXA ZYDIS) 5 mg 1X PRN PO PSYCHOSIS 08/20/21 12:15 08/21/21 07:44 DC Olanzapine (ZyPREXA ZYDIS) 5 mg PRN 1X PRN PO SEE LABEL COMMENT 08/21/21 07:45 Alprazolam (Xanax) 0.5 mg HS PO 08/24/21 21:00 08/28/21 19:49 Mirtazapine (Remeron) 7.5 mg QHS PO 08/25/21 21:00 08/28/21 19:44 Hydroxyzine HCl (Atarax) 10 mg PRN Q6HRS PRN PO ITCHING 08/26/21 12:00 I have reviewed the current psychotropics carefully including drug interactions. Risk benefit ratio favors no change other than as noted in my dictated progress note. Diagnosis: Problems: (1) Schizoaffective disorder, bipolar type (2) Impulse control disorder, unspecified (3) Mild cognitive impairment (4) Anxiety disorder, unspecified (5) Schizophrenia, paranoid, chronic with acute exacerbation (6) Bipolar disorder, current episode mixed, severe, with psychotic features PATRIC DAVIS MD Aug 28, 2021 21:32
[2021-08-29 06:13] VITALS: BP 119/50
[2021-08-29] MEDS: LACTOBACILLUS RHAMNOSUS GG 1 CAPSULE. PO SCH ×2 (08:27→20:19)
[2021-08-29] MEDS: BENZTROPINE MESYLATE 0.5 MG TABLET PO SCH (08:27)
[2021-08-29] MEDS: MULTIVITAMIN with MINERAL TABLET. PO SCH (08:27)
--- NOTE | 2021-08-29 08:57 | PDOC ---
Exam Note: Florencio Note: This note is a late entry for 08/28/2021 covers elements not covered in my initial note. Subjective: The patient was seen individually on 08/28/2021, discussed and reviewed the chart with Vlad SIMON. The patient slept 4-3/4 previous night. Yesterday the patient had some nausea and vomiting, but today she is better. Per Dr. Bedoya she was constipated and this is being treated symptomatically. The patient was in her room, did not know that supper was being served and was happy to be told that nursing staff assisted her there. Review of Systems: Ambulation impaired. No CV, , pulmonary, eye system symptoms on review. Mental Status Exam: The patient is oriented to herself and situation. Speech unchanged, consequent to dysarthria. Abstraction fair. Computation impaired. Language function intact. Attention span fair. Mood and affect anxious. Laboratory Data: Reviewed. Impression: Schizoaffective disorder, bipolar type, with psychotic features. Anxiety disorder unspecified. Impulse control disorder unspecified. Plan: We will continue current psychotropics mentioned in my initial note. Reviewed drug interactions, risk-benefit ratio. We will treat the constipation symptomatically. Assessment: Vital Signs/I&O: Vital Signs Date Time Temp Pulse Resp B/P (MAP) Pulse Ox O2 Delivery O2 Flow Rate FiO2 08/29/21 06:13 97.8 45 16 119/50 (73) 96 08/27/21 06:18 Room Air I & O 08/28/21 08/28/21 08/29/21 15:00 23:00 07:00 Intake Total 730 ml 600 ml Balance 730 ml 600 ml Current Medications: I have reviewed the current psychotropics carefully including drug interactions. Risk benefit ratio favors no change other than as noted in my dictated progress note. Diagnosis: Problems: (1) Schizoaffective disorder, bipolar type (2) Impulse control disorder, unspecified (3) Mild cognitive impairment (4) Anxiety disorder, unspecified (5) Schizophrenia, paranoid, chronic with acute exacerbation (6) Bipolar disorder, current episode mixed, severe, with psychotic features PATRIC DAVIS MD Aug 29, 2021 08:57
[2021-08-29] MEDS ORDERED: MAGNESIUM CITRATE 296 ML SOLUTION. PO ONE (09:45)
[2021-08-29 15:44] VITALS: BP 110/68
--- NOTE | 2021-08-29 17:24 | NUR ---
pt was up for breakfast and lunch and ate well. pt was in bed for lunch as she did not want to eat anyhting. orders for mag citrate given and pt compliant with all meds. no behaviors noted this shift. will continue to monitor
[2021-08-29] MEDS: MIRTAZAPINE 7.5 MG TABLET. PO SCH (20:19)
[2021-08-29] MEDS: DIVALPROEX ER 250 MG TAB.ER.24H. PO SCH (20:19)
[2021-08-29] MEDS: DIVALPROEX ER 500 MG TAB.ER.24H PO SCH (20:19)
[2021-08-29] MEDS: risperiDONE 1 MG TABLET. PO SCH (20:19)
[2021-08-29] MEDS: ALPRAZolam 0.5 MG TABLET PO SCH (20:21)
--- NOTE | 2021-08-29 21:49 | PDOC ---
Exam Note: Florencio Note: Please also refer to the separate dictated note~for this date of service dictated separately.~Patient seen individually. Discussed the patient with Nursing staff reviewed the chart.~Reviewed interim history and current functioning. Reviewed vital signs,~Labs/ Radiology~and current medications noted below. Continue current treatment with the changes noted in the dictated addendum note Assessment: Vital Signs/I&O: Vital Signs Date Time Temp Pulse Resp B/P (MAP) Pulse Ox O2 Delivery O2 Flow Rate FiO2 08/29/21 15:44 98.2 45 18 110/68 (82) 96 08/27/21 06:18 Room Air I & O 08/28/21 08/28/21 08/29/21 15:00 23:00 07:00 Intake Total 730 ml 600 ml Balance 730 ml 600 ml Current Medications: Meds: Current Medications Medications (Trade) Dose Ordered Sig/Dawit Route PRN Reason Start Time Stop Time Status Last Admin Dose Admin Acetaminophen (Tylenol) 650 mg PRN Q6HRS PRN PO MILD PAIN / TEMP > 100.3'F 07/29/21 16:15 08/05/21 03:07 Multi-Ingredient Ointment (Analgesic [place]) 1 paulo PRN QID PRN TP MUSCLE PAIN 07/29/21 16:15 Al Hydroxide/Mg Hydroxide (Mylanta Plus Xs) 15 ml PRN AFTMEALHC PRN PO DYSPEPSIA 07/29/21 16:15 08/28/21 09:48 Magnesium Hydroxide (Milk Of Magnesia) 2,400 mg PRN QHS PRN PO CONSTIPATION 07/29/21 16:15 08/28/21 19:49 Aripiprazole (Abilify) 15 mg DAILY PO 07/30/21 09:00 08/03/21 18:42 DC 08/03/21 08:43 Nystatin (Nystop) 1 paulo PRN BID PRN TP RASH 07/29/21 16:15 08/03/21 10:30 Alprazolam (Xanax) 1 mg HS PO 07/29/21 21:00 08/24/21 16:39 DC 08/23/21 21:17 Zinc Acetate/ Diphenhydramine (Benadryl Topical) 1 paulo PRN TID PRN TP ITCHY SKIN 07/29/21 16:30 Vitamin D (Vitamin D3) 50,000 unit WEEKLY PO 08/02/21 09:00 08/23/21 09:02 Multivitamins/ Calcium (Thera-M Plus) 1 tab DAILY PO 07/30/21 09:00 08/29/21 08:27 Olanzapine (ZyPREXA ZYDIS) 2.5 mg PRN Q2HR PRN PO PSYCHOSIS 07/30/21 11:15 08/13/21 21:05 Trazodone HCl (Desyrel) 50 mg PRN QHS PRN PO INSOMNIA, MAY REPEAT X1 07/30/21 11:15 08/01/21 12:48 DC 07/30/21 20:41 Divalproex Sodium (Depakote Er) 500 mg QHS PO 07/31/21 21:00 08/03/21 18:58 DC 08/02/21 20:01 Levofloxacin (Levaquin) 250 mg DAILY06 PO 08/02/21 06:00 08/06/21 23:00 DC 08/06/21 06:28 Lactobacillus Rhamnosus (Culturelle) 1 cap BID PO 08/03/21 09:00 08/29/21 20:19 Risperidone (RisperDAL) 0.5 mg QHS PO 08/03/21 21:00 08/12/21 17:27 DC 08/11/21 20:30 Divalproex Sodium (Depakote Er) 250 mg HS PO 08/03/21 21:00 08/29/21 20:19 Divalproex Sodium (Depakote Er) 500 mg HS PO 08/03/21 21:00 08/29/21 20:19 Risperidone (RisperDAL) 1 mg QHS PO 08/12/21 21:00 08/29/21 20:19 Trazodone HCl (Desyrel) 50 mg PRN QHS PRN PO INSOMNIA, MAY REPEAT X1 08/12/21 17:30 08/18/21 20:54 Benztropine Mesylate (Cogentin) 0.5 mg DAILY PO 08/14/21 09:00 08/29/21 08:27 Olanzapine (ZyPREXA ZYDIS) 5 mg 1X PRN PO PSYCHOSIS 08/20/21 12:15 08/21/21 07:44 DC Olanzapine (ZyPREXA ZYDIS) 5 mg PRN 1X PRN PO SEE LABEL COMMENT 08/21/21 07:45 Alprazolam (Xanax) 0.5 mg HS PO 08/24/21 21:00 08/29/21 20:21 Mirtazapine (Remeron) 7.5 mg QHS PO 08/25/21 21:00 08/29/21 20:19 Hydroxyzine HCl (Atarax) 10 mg PRN Q6HRS PRN PO ITCHING 08/26/21 12:00 Magnesium Citrate (Citroma) 296 ml 1X ONCE PO 08/29/21 09:45 08/29/21 09:54 DC 08/29/21 11:43 Current Medications Medications (Trade) Dose Ordered Sig/Dawit Route PRN Reason Start Time Stop Time Status Last Admin Dose Admin Magnesium Citrate (Citroma) 296 ml 1X ONCE PO 08/29/21 09:45 08/29/21 09:54 DC 08/29/21 11:43 I have reviewed the current psychotropics carefully including drug interactions. Risk benefit ratio favors no change other than as noted in my dictated progress note. Diagnosis: Problems: (1) Schizoaffective disorder, bipolar type (2) Impulse control disorder, unspecified (3) Mild cognitive impairment (4) Anxiety disorder, unspecified (5) Bipolar disorder, current episode mixed, severe, with psychotic features PATRIC DAVIS MD Aug 29, 2021 21:49
--- NOTE | 2021-08-29 23:27 | NUR ---
Pt withdrawn to her room this evening. Calm and cooperative. Compliant with whole medications. Multiple loose bowel movements this evening following Mag Citrate earlier in the day.
[2021-08-30 06:17] VITALS: BP 118/61
[2021-08-30] MEDS: MULTIVITAMIN with MINERAL TABLET. PO SCH (09:06)
[2021-08-30] MEDS: BENZTROPINE MESYLATE 0.5 MG TABLET PO SCH (09:06)
[2021-08-30] MEDS: CHOLECALCIFEROL (VITAMIN D3) 50,000 UNIT CAPSULE PO SCH (09:06)
[2021-08-30] MEDS: LACTOBACILLUS RHAMNOSUS GG 1 CAPSULE. PO SCH ×2 (09:06→20:29)
--- NOTE | 2021-08-30 15:03 | NUR ---
Nursing note: Patient in bedroom for assessment & medication. She is compliant with medications taken whole. She is A/O X3, unable to report situation & reported wrong year of . She denies pain/discomfort at this time. Patient is very garbled when she speaks making it hard to understand her. She is calm, & cooperative. She was highly encouraged to join the day room, but continuously refused. She ambulates independently with walker, can be unsteady at times. She is currently in her room resting with eyes closed. Will continue to monitor.
[2021-08-30 15:36] VITALS: BP 147/68
[2021-08-30] MEDS: DIVALPROEX ER 500 MG TAB.ER.24H PO SCH (20:29)
[2021-08-30] MEDS: risperiDONE 1 MG TABLET. PO SCH (20:29)
[2021-08-30] MEDS: MIRTAZAPINE 7.5 MG TABLET. PO SCH (20:29)
[2021-08-30] MEDS: DIVALPROEX ER 250 MG TAB.ER.24H. PO SCH (20:29)
[2021-08-30] MEDS: ALPRAZolam 0.5 MG TABLET PO SCH (20:30)
--- NOTE | 2021-08-30 21:29 | PDOC ---
Exam Note: Florencio Note: Please also refer to the separate dictated note~for this date of service dictated separately.~Patient seen individually. Discussed the patient with Nursing staff reviewed the chart.~Reviewed interim history and current functioning. Reviewed vital signs,~Labs/ Radiology~and current medications noted below. Continue current treatment with the changes noted in the dictated addendum note Assessment: Vital Signs/I&O: Vital Signs Date Time Temp Pulse Resp B/P (MAP) Pulse Ox O2 Delivery O2 Flow Rate FiO2 08/30/21 15:36 98.3 48 16 147/68 (94) 96 Room Air I & O 08/29/21 08/29/21 08/30/21 15:00 23:00 07:00 Intake Total 840 ml 560 ml Balance 840 ml 560 ml Current Medications: Meds: Current Medications Medications (Trade) Dose Ordered Sig/Dawit Route PRN Reason Start Time Stop Time Status Last Admin Dose Admin Acetaminophen (Tylenol) 650 mg PRN Q6HRS PRN PO MILD PAIN / TEMP > 100.3'F 07/29/21 16:15 08/05/21 03:07 Multi-Ingredient Ointment (Analgesic [place]) 1 paulo PRN QID PRN TP MUSCLE PAIN 07/29/21 16:15 Al Hydroxide/Mg Hydroxide (Mylanta Plus Xs) 15 ml PRN AFTMEALHC PRN PO DYSPEPSIA 07/29/21 16:15 08/28/21 09:48 Magnesium Hydroxide (Milk Of Magnesia) 2,400 mg PRN QHS PRN PO CONSTIPATION 07/29/21 16:15 08/28/21 19:49 Aripiprazole (Abilify) 15 mg DAILY PO 07/30/21 09:00 08/03/21 18:42 DC 08/03/21 08:43 Nystatin (Nystop) 1 paulo PRN BID PRN TP RASH 07/29/21 16:15 08/03/21 10:30 Alprazolam (Xanax) 1 mg HS PO 07/29/21 21:00 08/24/21 16:39 DC 08/23/21 21:17 Zinc Acetate/ Diphenhydramine (Benadryl Topical) 1 paulo PRN TID PRN TP ITCHY SKIN 07/29/21 16:30 Vitamin D (Vitamin D3) 50,000 unit WEEKLY PO 08/02/21 09:00 08/30/21 09:06 Multivitamins/ Calcium (Thera-M Plus) 1 tab DAILY PO 07/30/21 09:00 08/30/21 09:06 Olanzapine (ZyPREXA ZYDIS) 2.5 mg PRN Q2HR PRN PO PSYCHOSIS 07/30/21 11:15 08/13/21 21:05 Trazodone HCl (Desyrel) 50 mg PRN QHS PRN PO INSOMNIA, MAY REPEAT X1 07/30/21 11:15 08/01/21 12:48 DC 07/30/21 20:41 Divalproex Sodium (Depakote Er) 500 mg QHS PO 07/31/21 21:00 08/03/21 18:58 DC 08/02/21 20:01 Levofloxacin (Levaquin) 250 mg DAILY06 PO 08/02/21 06:00 08/06/21 23:00 DC 08/06/21 06:28 Lactobacillus Rhamnosus (Culturelle) 1 cap BID PO 08/03/21 09:00 08/30/21 20:29 Risperidone (RisperDAL) 0.5 mg QHS PO 08/03/21 21:00 08/12/21 17:27 DC 08/11/21 20:30 Divalproex Sodium (Depakote Er) 250 mg HS PO 08/03/21 21:00 08/30/21 20:29 Divalproex Sodium (Depakote Er) 500 mg HS PO 08/03/21 21:00 08/30/21 20:29 Risperidone (RisperDAL) 1 mg QHS PO 08/12/21 21:00 08/30/21 20:29 Trazodone HCl (Desyrel) 50 mg PRN QHS PRN PO INSOMNIA, MAY REPEAT X1 08/12/21 17:30 08/18/21 20:54 Benztropine Mesylate (Cogentin) 0.5 mg DAILY PO 08/14/21 09:00 08/30/21 09:06 Olanzapine (ZyPREXA ZYDIS) 5 mg 1X PRN PO PSYCHOSIS 08/20/21 12:15 08/21/21 07:44 DC Olanzapine (ZyPREXA ZYDIS) 5 mg PRN 1X PRN PO SEE LABEL COMMENT 08/21/21 07:45 Alprazolam (Xanax) 0.5 mg HS PO 08/24/21 21:00 08/30/21 20:30 Mirtazapine (Remeron) 7.5 mg QHS PO 08/25/21 21:00 08/30/21 20:29 Hydroxyzine HCl (Atarax) 10 mg PRN Q6HRS PRN PO ITCHING 08/26/21 12:00 Magnesium Citrate (Citroma) 296 ml 1X ONCE PO 08/29/21 09:45 08/29/21 09:54 DC 08/29/21 11:43 I have reviewed the current psychotropics carefully including drug interactions. Risk benefit ratio favors no change other than as noted in my dictated progress note. Diagnosis: Problems: (1) Schizoaffective disorder, bipolar type (2) Impulse control disorder, unspecified (3) Mild cognitive impairment (4) Anxiety disorder, unspecified (5) Bipolar disorder, current episode mixed, severe, with psychotic features PATRIC DAVIS MD August 30, 2021 21:29
--- NOTE | 2021-08-30 23:56 | NUR ---
Pt laying in bed awake this evening. Pleasant when approached. Compliant with whole medications. No behaviors this evening.
[2021-08-31] MEDS ORDERED: ACET325T9 PO (03:16)
[2021-08-31] MEDS ORDERED: BENZ0.5T32 PO (03:17)
[2021-08-31] MEDS ORDERED: CHOL500021 PO (03:19)
[2021-08-31] MEDS ORDERED: DIVA500T17 PO (03:20)
[2021-08-31] MEDS ORDERED: LACT1CAP21 PO (03:20)
[2021-08-31] MEDS ORDERED: MAG-124 PO (03:21)
[2021-08-31] MEDS ORDERED: MAGN24003 PO (03:22)
[2021-08-31] MEDS ORDERED: METH85CR30 TP (03:24)
[2021-08-31] MEDS ORDERED: MIRT-37 PO (03:25)
[2021-08-31] MEDS ORDERED: OLAN5TAB99 PO (03:27)
[2021-08-31] MEDS ORDERED: RISP1TAB43 PO (03:28)
[2021-08-31] MEDS ORDERED: HYDR10SY16 PO (03:28)
[2021-08-31] MEDS ORDERED: TRAZ-120 PO (03:29)
[2021-08-31 06:05] VITALS: BP 119/54
--- NOTE | 2021-08-31 06:38 | PDOC ---
Exam Note: Florencio Note: This note is a late entry for 08/29/2021 covers elements not covered in my initial note. Subjective: The patient was seen individually on 08/29/2021, discussed and reviewed the chart with Yesy SIMON. The patient slept 7 previous night. She has had some constipation. KUB x-ray has been done and she received magnesium citrate which was quite effective. She is compliant with her medications, ate nothing for lunch. I met with her in her room. Review of Systems: Ambulation impaired. No CV, , pulmonary, eye system symptoms on review. Mental Status Exam: The patient is oriented to herself and situation. Speech unchanged, consequent to dysarthria. Abstraction fair. Computation impaired. Language function intact. Attention span fair. Mood and affect anxious. Laboratory Data: Reviewed. Impression: Schizoaffective disorder, bipolar type, with psychotic features. Anxiety disorder unspecified. Impulse control disorder unspecified. Plan: We will continue current psychotropics mentioned in my initial note. Reviewed drug interactions, risk-benefit ratio. Treat the constipation symptomatically. Assessment: Vital Signs/I&O: Vital Signs Date Time Temp Pulse Resp B/P (MAP) Pulse Ox O2 Delivery O2 Flow Rate FiO2 08/31/21 06:05 97.1 56 18 119/54 (75) 93 08/30/21 15:36 Room Air I & O 08/30/21 08/30/21 08/31/21 15:00 23:00 07:00 Intake Total 240 ml 720 ml Balance 240 ml 720 ml Current Medications: I have reviewed the current psychotropics carefully including drug interactions. Risk benefit ratio favors no change other than as noted in my dictated progress note. Diagnosis: Problems: (1) Schizoaffective disorder, bipolar type (2) Impulse control disorder, unspecified (3) Mild cognitive impairment (4) Anxiety disorder, unspecified (5) Bipolar disorder, current episode mixed, severe, with psychotic features PATRIC DAVIS MD August 31, 2021 06:38
--- NOTE | 2021-08-31 06:53 | PDOC ---
Exam Note: Florencio Note: This note is a late entry for 08/30/2021 covers elements not covered in my initial note. Subjective: The patient was seen individually on 08/30/2021, discussed and reviewed the chart with Yesy SIMON. The patient slept 7-1/2 hours overall. She slept just 2 hours previous night secondary to some diarrhea consequent to magnesium citrate. Today she was encouraged to come out of her room and is little resistive to this. Wound culture is done but no antibiotics per Dr. Bedoya. Review of Systems: Ambulation impaired. No CV, , pulmonary, eye system symptoms on review. Mental Status Exam: The patient is oriented to herself and situation. I met with her in her room. Speech unchanged, consequent to dysarthria. Abstraction fair. Computation impaired. Language function intact. Attention span fair. Mood and affect anxious. Laboratory Data: Reviewed. Impression: Schizoaffective disorder, bipolar type, with psychotic features. Anxiety disorder unspecified. Impulse control disorder unspecified. Plan: We will continue current psychotropics mentioned in my initial note. Reviewed drug interactions, risk-benefit ratio. Assessment: Vital Signs/I&O: Vital Signs Date Time Temp Pulse Resp B/P (MAP) Pulse Ox O2 Delivery O2 Flow Rate FiO2 08/31/21 06:05 97.1 56 18 119/54 (75) 93 08/30/21 15:36 Room Air I & O 08/30/21 08/30/21 08/31/21 15:00 23:00 07:00 Intake Total 240 ml 720 ml Balance 240 ml 720 ml Current Medications: I have reviewed the current psychotropics carefully including drug interactions. Risk benefit ratio favors no change other than as noted in my dictated progress note. Diagnosis: Problems: (1) Schizoaffective disorder, bipolar type (2) Impulse control disorder, unspecified (3) Mild cognitive impairment (4) Anxiety disorder, unspecified (5) Bipolar disorder, current episode mixed, severe, with psychotic features PATRIC DAVIS MD August 31, 2021 06:53
[2021-08-31] MEDS: BENZTROPINE MESYLATE 0.5 MG TABLET PO SCH (08:17)
[2021-08-31] MEDS: MULTIVITAMIN with MINERAL TABLET. PO SCH (08:17)
[2021-08-31] MEDS: LACTOBACILLUS RHAMNOSUS GG 1 CAPSULE. PO SCH ×2 (08:17→20:19)
[2021-08-31 11:39] LABS: BASO % 1 % (0-3); EOS # 0.4 x10^3/uL (0.0-0.7); EOS % 6 % (0-3); HEMATOCRIT 36.7 % (36.0-47.0); HEMOGLOBIN 12.2 g/dL (12.0-15.5); LYMPH # 1.2 x10^3/uL (1.0-4.8); LYMPH % 20 % (24-48); MEAN CORPUSCULAR HEMOGLOBIN 31 pg (25-35); MEAN CORPUSCULAR HGB CONC 33 g/dL (31-37); MEAN CORPUSCULAR VOLUME 92 fL (79-100); MONO # 0.9 x10^3/uL (0.0-1.1); MONO % 15 % (0-9); NEUT # 3.4 x10^3uL (1.8-7.7); NEUT % 58 % (31-73); PLATELET COUNT 219 x10^3/uL (140-400); RED BLOOD COUNT 3.98 x10^6/uL (3.50-5.40); RED CELL DISTRIBUTION WIDTH 15.4 % (11.5-14.5)
[2021-08-31 11:53] LABS: ALBUMIN 2.5 g/dL (3.4-5.0); ALBUMIN/GLOBULIN RATIO 0.7 (1.0-1.7); CREATININE 0.8 mg/dL (0.6-1.0); GFR 69.2; POTASSIUM 4.4 mmol/L (3.5-5.1); TOTAL BILIRUBIN 0.3 mg/dL (0.2-1.0)
--- NOTE | 2021-08-31 13:33 | NUR ---
HAY returned call to pt dtr/DPOA, Michelle, to discuss pt discharge for tomorrow. Michelle requested that HAY set up the transport and inquired about Medicaid paying for it. HAY noted that Medicare does not pay for transport in the capacity that she does not have any overt needs (e.g. high fall risk, oxygen, IV care). HAY will set up a transport van and get back to Michelle with the cost of the transport. HAY to arrange the time for 1300.
--- NOTE | 2021-08-31 13:54 | NUR ---
Nursing note: Patient in dinning room for assessment & medication. She is compliant with medications taken whole. She is A/O X3, unable to report situation or . She denies pain/discomfort at this time. Patient is very garbled when she speaks making it hard to understand her. She is calm, & cooperative. She was highly encouraged to join the day room, but continuously refused. She ambulates independently with walker, can be unsteady at times. She is currently in her room resting with eyes closed. Will continue to monitor.
--- NOTE | 2021-08-31 15:19 | NUR ---
[facility] Social Work Discharge Planning Form Patient Name SARAHI ARGUETA Admit Date: 29 July 2021 DISCHARGE PLAN Discharge Destination: Pt to discharge to [facility] Care Assessment: N/A Level II Assessment: N/A Transportation: [facility] to pick pt up around 1300. Special Instructions/Notes: Please fax discharge orders, discharge medications and discharge summary to the fax number listed below. DISCHARGE TO FACILITY Facility: [facility] Address: [address] [place] [address] Contact Name: Nidhi Riojas, Physical Security Engineer: Contact Name: Please ask for the nurse caring for pt upon admission to the facility PCP: Dr. Joy Recommend follow-up with neurologist and psychiatrist if available.
[2021-08-31 15:38] VITALS: BP 128/81
[2021-08-31] MEDS: DIVALPROEX ER 250 MG TAB.ER.24H. PO SCH (20:19)
[2021-08-31] MEDS: risperiDONE 1 MG TABLET. PO SCH (20:19)
[2021-08-31] MEDS: DIVALPROEX ER 500 MG TAB.ER.24H PO SCH (20:19)
[2021-08-31] MEDS: MIRTAZAPINE 7.5 MG TABLET. PO SCH (20:19)
[2021-08-31] MEDS: ALPRAZolam 0.5 MG TABLET PO SCH (20:20)
--- NOTE | 2021-08-31 21:32 | PDOC ---
Exam Note: Florencio Note: Please also refer to the separate dictated note~for this date of service dictated separately.~Patient seen individually. Discussed the patient with Nursing staff reviewed the chart.~Reviewed interim history and current functioning. Reviewed vital signs,~Labs/ Radiology~and current medications noted below. Continue current treatment with the changes noted in the dictated addendum note Assessment: Vital Signs/I&O: Vital Signs Date Time Temp Pulse Resp B/P (MAP) Pulse Ox O2 Delivery O2 Flow Rate FiO2 08/31/21 15:38 98.0 61 20 128/81 (97) 94 08/30/21 15:36 Room Air I & O 08/30/21 08/30/21 08/31/21 15:00 23:00 07:00 Intake Total 240 ml 720 ml Balance 240 ml 720 ml Labs: Laboratory Tests Test 08/31/21 11:20 White Blood Count 6.0 x10^3/uL (4.0-11.0) Red Blood Count 3.98 x10^6/uL (3.50-5.40) Hemoglobin 12.2 g/dL (12.0-15.5) Hematocrit 36.7 % (36.0-47.0) Mean Corpuscular Volume 92 fL (79-100) Mean Corpuscular Hemoglobin 31 pg (25-35) Mean Corpuscular Hemoglobin Concent 33 g/dL (31-37) Red Cell Distribution Width 15.4 % (11.5-14.5) H Platelet Count 219 x10^3/uL (140-400) Neutrophils (%) (Auto) 58 % (31-73) Lymphocytes (%) (Auto) 20 % (24-48) L Monocytes (%) (Auto) 15 % (0-9) H Eosinophils (%) (Auto) 6 % (0-3) H Basophils (%) (Auto) 1 % (0-3) Neutrophils # (Auto) 3.4 x10^3uL (1.8-7.7) Lymphocytes # (Auto) 1.2 x10^3/uL (1.0-4.8) Monocytes # (Auto) 0.9 x10^3/uL (0.0-1.1) Eosinophils # (Auto) 0.4 x10^3/uL (0.0-0.7) Basophils # (Auto) 0.0 x10^3/uL (0.0-0.2) Sodium Level 138 mmol/L (136-145) Potassium Level 4.4 mmol/L (3.5-5.1) Chloride Level 104 mmol/L (98-107) Carbon Dioxide Level 28 mmol/L (21-32) Anion Gap 6 (6-14) Blood Urea Nitrogen 19 mg/dL (7-20) Creatinine 0.8 mg/dL (0.6-1.0) Estimated GFR (Cockcroft-Gault) 69.2 BUN/Creatinine Ratio 24 (6-20) H Glucose Level 87 mg/dL (70-99) Calcium Level 9.0 mg/dL (8.5-10.1) Total Bilirubin 0.3 mg/dL (0.2-1.0) Aspartate Amino Transferase (AST) 15 U/L (15-37) Alanine Aminotransferase (ALT) 14 U/L (14-59) Alkaline Phosphatase 66 U/L (46-116) Total Protein 6.0 g/dL (6.4-8.2) L Albumin 2.5 g/dL (3.4-5.0) L Albumin/Globulin Ratio 0.7 (1.0-1.7) L Current Medications: Meds: Laboratory Tests Test 08/31/21 11:20 White Blood Count 6.0 x10^3/uL Red Blood Count 3.98 x10^6/uL Hemoglobin 12.2 g/dL Hematocrit 36.7 % Mean Corpuscular Volume 92 fL Mean Corpuscular Hemoglobin 31 pg Mean Corpuscular Hemoglobin Concent 33 g/dL Red Cell Distribution Width 15.4 % Platelet Count 219 x10^3/uL Neutrophils (%) (Auto) 58 % Lymphocytes (%) (Auto) 20 % Monocytes (%) (Auto) 15 % Eosinophils (%) (Auto) 6 % Basophils (%) (Auto) 1 % Neutrophils # (Auto) 3.4 x10^3uL Lymphocytes # (Auto) 1.2 x10^3/uL Monocytes # (Auto) 0.9 x10^3/uL Eosinophils # (Auto) 0.4 x10^3/uL Basophils # (Auto) 0.0 x10^3/uL Sodium Level 138 mmol/L Potassium Level 4.4 mmol/L Chloride Level 104 mmol/L Carbon Dioxide Level 28 mmol/L Anion Gap 6 Blood Urea Nitrogen 19 mg/dL Creatinine 0.8 mg/dL Estimated GFR (Cockcroft-Gault) 69.2 BUN/Creatinine Ratio 24 Glucose Level 87 mg/dL Calcium Level 9.0 mg/dL Total Bilirubin 0.3 mg/dL Aspartate Amino Transf (AST/SGOT) 15 U/L Alanine Aminotransferase (ALT/SGPT) 14 U/L Alkaline Phosphatase 66 U/L Total Protein 6.0 g/dL Albumin 2.5 g/dL Albumin/Globulin Ratio 0.7 Current Medications Medications (Trade) Dose Ordered Sig/Dawit Route PRN Reason Start Time Stop Time Status Last Admin Dose Admin Acetaminophen (Tylenol) 650 mg PRN Q6HRS PRN PO MILD PAIN / TEMP > 100.3'F 07/29/21 16:15 08/05/21 03:07 Multi-Ingredient Ointment (Analgesic [place]) 1 paulo PRN QID PRN TP MUSCLE PAIN 07/29/21 16:15 Al Hydroxide/Mg Hydroxide (Mylanta Plus Xs) 15 ml PRN AFTMEALHC PRN PO DYSPEPSIA 07/29/21 16:15 08/28/21 09:48 Magnesium Hydroxide (Milk Of Magnesia) 2,400 mg PRN QHS PRN PO CONSTIPATION 07/29/21 16:15 08/28/21 19:49 Aripiprazole (Abilify) 15 mg DAILY PO 07/30/21 09:00 08/03/21 18:42 DC 08/03/21 08:43 Nystatin (Nystop) 1 paulo PRN BID PRN TP RASH 07/29/21 16:15 08/03/21 10:30 Alprazolam (Xanax) 1 mg HS PO 07/29/21 21:00 08/24/21 16:39 DC 08/23/21 21:17 Zinc Acetate/ Diphenhydramine (Benadryl Topical) 1 paulo PRN TID PRN TP ITCHY SKIN 07/29/21 16:30 Vitamin D (Vitamin D3) 50,000 unit WEEKLY PO 08/02/21 09:00 08/30/21 09:06 Multivitamins/ Calcium (Thera-M Plus) 1 tab DAILY PO 07/30/21 09:00 08/31/21 08:17 Olanzapine (ZyPREXA ZYDIS) 2.5 mg PRN Q2HR PRN PO PSYCHOSIS 07/30/21 11:15 08/13/21 21:05 Trazodone HCl (Desyrel) 50 mg PRN QHS PRN PO INSOMNIA, MAY REPEAT X1 07/30/21 11:15 08/01/21 12:48 DC 07/30/21 20:41 Divalproex Sodium (Depakote Er) 500 mg QHS PO 07/31/21 21:00 08/03/21 18:58 DC 08/02/21 20:01 Levofloxacin (Levaquin) 250 mg DAILY06 PO 08/02/21 06:00 08/06/21 23:00 DC 08/06/21 06:28 Lactobacillus Rhamnosus (Culturelle) 1 cap BID PO 08/03/21 09:00 08/31/21 20:19 Risperidone (RisperDAL) 0.5 mg QHS PO 08/03/21 21:00 08/12/21 17:27 DC 08/11/21 20:30 Divalproex Sodium (Depakote Er) 250 mg HS PO 08/03/21 21:00 08/31/21 20:19 Divalproex Sodium (Depakote Er) 500 mg HS PO 08/03/21 21:00 08/31/21 20:19 Risperidone (RisperDAL) 1 mg QHS PO 08/12/21 21:00 08/31/21 20:19 Trazodone HCl (Desyrel) 50 mg PRN QHS PRN PO INSOMNIA, MAY REPEAT X1 08/12/21 17:30 08/18/21 20:54 Benztropine Mesylate (Cogentin) 0.5 mg DAILY PO 08/14/21 09:00 08/31/21 08:17 Olanzapine (ZyPREXA ZYDIS) 5 mg 1X PRN PO PSYCHOSIS 08/20/21 12:15 08/21/21 07:44 DC Olanzapine (ZyPREXA ZYDIS) 5 mg PRN 1X PRN PO SEE LABEL COMMENT 08/21/21 07:45 Alprazolam (Xanax) 0.5 mg HS PO 08/24/21 21:00 08/31/21 20:20 Mirtazapine (Remeron) 7.5 mg QHS PO 08/25/21 21:00 08/31/21 20:19 Hydroxyzine HCl (Atarax) 10 mg PRN Q6HRS PRN PO ITCHING 08/26/21 12:00 Magnesium Citrate (Citroma) 296 ml 1X ONCE PO 08/29/21 09:45 08/29/21 09:54 DC 08/29/21 11:43 I have reviewed the current psychotropics carefully including drug interactions. Risk benefit ratio favors no change other than as noted in my dictated progress note. Diagnosis: Problems: (1) Schizoaffective disorder, bipolar type (2) Impulse control disorder, unspecified (3) Mild cognitive impairment (4) Anxiety disorder, unspecified (5) Bipolar disorder, current episode mixed, severe, with psychotic features PATRIC DAVIS MD August 31, 2021 21:32
--- NOTE | 2021-08-31 23:13 | NUR ---
Patient was in her room, sitting in bed reading a magazine. She is oriented to name, year and place. She has a moist non-productive cough, lungs are diminished, vital signs are WNL. Patient is compliant with medication taken whole. She has not had any delusions this shift.
[2021-09-01 06:06] VITALS: BP 116/58
[2021-09-01] MEDS: BENZTROPINE MESYLATE 0.5 MG TABLET PO SCH (08:20)
[2021-09-01] MEDS: LACTOBACILLUS RHAMNOSUS GG 1 CAPSULE. PO SCH (08:20)
[2021-09-01] MEDS: MULTIVITAMIN with MINERAL TABLET. PO SCH (08:20)
--- NOTE | 2021-09-01 10:00 | PDOC ---
Exam Note: Florencio Note: This note is a late entry for 08/31/2021 covers elements not covered in my initial note. Subjective: The patient was seen individually on 08/31/2021, discussed and reviewed the chart with Kira SIMON. The patient slept 3-3/4 previous night. Reportedly per nursing report, the patient was acting somewhat odd after lunch. She wanted water reportedly from the police shift commander and said that drugs were being put in the water. She has been obsessive, anxious, picking at scabs. I met with her in her room. Review of Systems: Ambulation impaired. No CV, , pulmonary, eye system symptoms on review. Mental Status Exam: The patient is oriented to herself and situation. She is verbal, pleasant, interactive. Speech impaired due to dysarthria. Abstraction fair. Computation impaired. Language function intact. Attention span fair. Mood and affect anxious. Laboratory Data: Reviewed. Impression: Schizoaffective disorder, bipolar type, with psychotic features. Anxiety disorder unspecified. Impulse control disorder unspecified. Plan: We will continue current psychotropics mentioned in my initial note. Reviewed drug interactions, risk-benefit ratio. Continue to monitor the patient but for now we will not increase Risperdal beyond 1 mg h.s. that she is taking. Assessment: Vital Signs/I&O: Vital Signs Date Time Temp Pulse Resp B/P (MAP) Pulse Ox O2 Delivery O2 Flow Rate FiO2 09/01/21 06:06 98.6 55 20 116/58 (77) 93 Room Air I & O 08/31/21 08/31/21 09/01/21 15:00 23:00 07:00 Intake Total 600 ml 240 ml 260 ml Balance 600 ml 240 ml 260 ml Labs: Laboratory Tests Test 08/31/21 11:20 White Blood Count 6.0 x10^3/uL (4.0-11.0) Red Blood Count 3.98 x10^6/uL (3.50-5.40) Hemoglobin 12.2 g/dL (12.0-15.5) Hematocrit 36.7 % (36.0-47.0) Mean Corpuscular Volume 92 fL (79-100) Mean Corpuscular Hemoglobin 31 pg (25-35) Mean Corpuscular Hemoglobin Concent 33 g/dL (31-37) Red Cell Distribution Width 15.4 % (11.5-14.5) H Platelet Count 219 x10^3/uL (140-400) Neutrophils (%) (Auto) 58 % (31-73) Lymphocytes (%) (Auto) 20 % (24-48) L Monocytes (%) (Auto) 15 % (0-9) H Eosinophils (%) (Auto) 6 % (0-3) H Basophils (%) (Auto) 1 % (0-3) Neutrophils # (Auto) 3.4 x10^3uL (1.8-7.7) Lymphocytes # (Auto) 1.2 x10^3/uL (1.0-4.8) Monocytes # (Auto) 0.9 x10^3/uL (0.0-1.1) Eosinophils # (Auto) 0.4 x10^3/uL (0.0-0.7) Basophils # (Auto) 0.0 x10^3/uL (0.0-0.2) Sodium Level 138 mmol/L (136-145) Potassium Level 4.4 mmol/L (3.5-5.1) Chloride Level 104 mmol/L (98-107) Carbon Dioxide Level 28 mmol/L (21-32) Anion Gap 6 (6-14) Blood Urea Nitrogen 19 mg/dL (7-20) Creatinine 0.8 mg/dL (0.6-1.0) Estimated GFR (Cockcroft-Gault) 69.2 BUN/Creatinine Ratio 24 (6-20) H Glucose Level 87 mg/dL (70-99) Calcium Level 9.0 mg/dL (8.5-10.1) Total Bilirubin 0.3 mg/dL (0.2-1.0) Aspartate Amino Transferase (AST) 15 U/L (15-37) Alanine Aminotransferase (ALT) 14 U/L (14-59) Alkaline Phosphatase 66 U/L (46-116) Total Protein 6.0 g/dL (6.4-8.2) L Albumin 2.5 g/dL (3.4-5.0) L Albumin/Globulin Ratio 0.7 (1.0-1.7) L Current Medications: I have reviewed the current psychotropics carefully including drug interactions. Risk benefit ratio favors no change other than as noted in my dictated progress note. Diagnosis: Problems: (1) Schizoaffective disorder, bipolar type (2) Impulse control disorder, unspecified (3) Mild cognitive impairment (4) Anxiety disorder, unspecified (5) Bipolar disorder, current episode mixed, severe, with psychotic features PATRIC DAVIS MD September 01, 2021 10:00
--- NOTE | 2021-09-01 11:46 | NUR ---
Transition Record was faxed to follow-up provider with the following elements: Reason for admission, procedures, tests, principal diagnosis, pending studies, patient instructions, 22/11 contact information for unit, phone number to obtain pending test results, plan for follow-up care, physician follow-up, advanced directive information, and medication list with dose, duration and instructions. This information was included in the following documents: History and physical, lab results, study results, progress notes, social work planning form, DC instruction form, patient visit summary, and medication reconciliation form. Date & time record faxed: 09/01/21 @ 1024 Record faxed to: Alec Perez @ [phone] Record discussed with/ report given to: Nidhi @ [phone]
--- NOTE | 2021-09-01 21:50 | PDOC ---
Exam Note: Florencio Note: Please also refer to the separate dictated note~for this date of service dictated separately.~Patient seen individually. Discussed the patient with Nursing staff reviewed the chart.~Reviewed interim history and current functioning. Reviewed vital signs,~Labs/ Radiology~and current medications noted below. Continue current treatment with the changes noted in the dictated addendum note Assessment: Vital Signs/I&O: Vital Signs Date Time Temp Pulse Resp B/P (MAP) Pulse Ox O2 Delivery O2 Flow Rate FiO2 09/01/21 06:06 98.6 55 20 116/58 (77) 93 Room Air I & O 08/31/21 08/31/21 09/01/21 15:00 23:00 07:00 Intake Total 600 ml 240 ml 260 ml Balance 600 ml 240 ml 260 ml Current Medications: Meds: Current Medications Medications (Trade) Dose Ordered Sig/Dawit Route PRN Reason Start Time Stop Time Status Last Admin Dose Admin Acetaminophen (Tylenol) 650 mg PRN Q6HRS PRN PO MILD PAIN / TEMP > 100.3'F 07/29/21 16:15 09/01/21 13:01 DC 08/05/21 03:07 Multi-Ingredient Ointment (Analgesic Imperial) 1 paulo PRN QID PRN TP MUSCLE PAIN 07/29/21 16:15 09/01/21 13:01 DC Al Hydroxide/Mg Hydroxide (Mylanta Plus Xs) 15 ml PRN AFTMEALHC PRN PO DYSPEPSIA 07/29/21 16:15 09/01/21 13:01 DC 08/28/21 09:48 Magnesium Hydroxide (Milk Of Magnesia) 2,400 mg PRN QHS PRN PO CONSTIPATION 07/29/21 16:15 09/01/21 13:01 DC 08/28/21 19:49 Aripiprazole (Abilify) 15 mg DAILY PO 07/30/21 09:00 08/03/21 18:42 DC 08/03/21 08:43 Nystatin (Nystop) 1 paulo PRN BID PRN TP RASH 07/29/21 16:15 09/01/21 13:01 DC 08/03/21 10:30 Alprazolam (Xanax) 1 mg HS PO 07/29/21 21:00 08/24/21 16:39 DC 08/23/21 21:17 Zinc Acetate/ Diphenhydramine (Benadryl Topical) 1 paulo PRN TID PRN TP 1ST CHOICE ITCHY SKIN 07/29/21 16:30 09/01/21 13:01 DC Vitamin D (Vitamin D3) 50,000 unit WEEKLY PO 08/02/21 09:00 09/01/21 13:01 DC 08/30/21 09:06 Multivitamins/ Calcium (Thera-M Plus) 1 tab DAILY PO 07/30/21 09:00 09/01/21 13:01 DC 09/01/21 08:20 Olanzapine (ZyPREXA ZYDIS) 2.5 mg PRN Q2HR PRN PO PSYCHOSIS 07/30/21 11:15 09/01/21 13:01 DC 08/13/21 21:05 Trazodone HCl (Desyrel) 50 mg PRN QHS PRN PO INSOMNIA, MAY REPEAT X1 07/30/21 11:15 08/01/21 12:48 DC 07/30/21 20:41 Divalproex Sodium (Depakote Er) 500 mg QHS PO 07/31/21 21:00 08/03/21 18:58 DC 08/02/21 20:01 Levofloxacin (Levaquin) 250 mg DAILY06 PO 08/02/21 06:00 08/06/21 23:00 DC 08/06/21 06:28 Lactobacillus Rhamnosus (Culturelle) 1 cap BID PO 08/03/21 09:00 09/01/21 13:01 DC 09/01/21 08:20 Risperidone (RisperDAL) 0.5 mg QHS PO 08/03/21 21:00 08/12/21 17:27 DC 08/11/21 20:30 Divalproex Sodium (Depakote Er) 250 mg HS PO 08/03/21 21:00 09/01/21 13:01 DC 08/31/21 20:19 Divalproex Sodium (Depakote Er) 500 mg HS PO 08/03/21 21:00 09/01/21 13:01 DC 08/31/21 20:19 Risperidone (RisperDAL) 1 mg QHS PO 08/12/21 21:00 09/01/21 13:01 DC 08/31/21 20:19 Trazodone HCl (Desyrel) 50 mg PRN QHS PRN PO INSOMNIA, MAY REPEAT X1 08/12/21 17:30 09/01/21 13:01 DC 08/18/21 20:54 Benztropine Mesylate (Cogentin) 0.5 mg DAILY PO 08/14/21 09:00 09/01/21 13:01 DC 09/01/21 08:20 Olanzapine (ZyPREXA ZYDIS) 5 mg 1X PRN PO PSYCHOSIS 08/20/21 12:15 08/21/21 07:44 DC Olanzapine (ZyPREXA ZYDIS) 5 mg PRN 1X PRN PO SEE LABEL COMMENT 08/21/21 07:45 09/01/21 13:01 DC 09/01/21 12:15 Alprazolam (Xanax) 0.5 mg HS PO 08/24/21 21:00 09/01/21 13:01 DC 08/31/21 20:20 Mirtazapine (Remeron) 7.5 mg QHS PO 08/25/21 21:00 09/01/21 13:01 DC 08/31/21 20:19 Hydroxyzine HCl (Atarax) 10 mg PRN Q6HRS PRN PO 2ND CHOICE ITCHING 08/26/21 12:00 09/01/21 13:01 DC Magnesium Citrate (Citroma) 296 ml 1X ONCE PO 08/29/21 09:45 08/29/21 09:54 DC 08/29/21 11:43 I have reviewed the current psychotropics carefully including drug interactions. Risk benefit ratio favors no change other than as noted in my dictated progress note. Diagnosis: Problems: (1) Schizoaffective disorder, bipolar type (2) Impulse control disorder, unspecified (3) Mild cognitive impairment (4) Anxiety disorder, unspecified (5) Bipolar disorder, current episode mixed, severe, with psychotic features PATRIC DAVIS MD September 01, 2021 21:50
--- NOTE | 2021-09-02 09:55 | DS ---
DATE OF DISCHARGE: 09/01/2021 DISCHARGE SUMMARY/PSYCHIATRIC PROGRESS NOTE This note covers the elements not covered in my initial note, 09/01. REASON FOR ADMISSION: Please refer to the admission history for details. Briefly, the patient is a 80-year-old female referred to us from home where she was residing with her . She has been increasingly paranoid, delusional, hiding knives, delusional, thinking someone was stealing her things. She was packing her bags to leave the house and was writing things all over her clothing with a Sharpie pencil. She was having imaginary friends. She has a history of schizophrenia, appeared to be having an acute exacerbation with psychotic features and had failed outpatient psychiatric intervention resulting in this hospitalization and stabilization. SIGNIFICANT FINDINGS AND CLINICAL COURSE: Following admission, the patient was seen daily individually by myself from a psychiatric standpoint, medical followup, Dr. Dale/Dr. Bedoya. She would isolate herself frequently because of a marked dysarthria and social anxiety surrounding this, but she did go to the dining room for meals. Gradually, her psychotropics were adjusted and she seemed to respond to a combination of Risperdal 1 mg at bedtime, Remeron 7.5 mg at bedtime, Xanax 0.5 mg at bedtime, Zyprexa p.r.n., Depakote ER 750 mg at bedtime with a therapeutic blood level at 74, Cogentin 0.5 mg daily, trazodone 50 mg at bedtime p.r.n., may repeat x 1. Atarax p.r.n. REVIEW OF SYSTEMS: Prior to discharge on 09/01, ambulation impaired. No CV, , pulmonary, eye system symptoms on review. MENTAL STATUS EXAMINATION: Oriented to herself, situation. Speech difficult to understand due to ____. Abstraction fair. Computation impaired. Language function intact. Attention span somewhat poor. Mood and affect improved. 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 Rest unchanged from admission. DISCHARGE MEDICATIONS: Please refer to the [facility]. DISCHARGE INSTRUCTIONS: Outpatient psychiatric and medical followup as arranged prior to discharge. Time for discharge day management greater than 30 minutes. MARILY/JENNIFER/DANIA DR: Maldonado TID: [id number]
== END 2021-09-01 13:01 | DRG 885 ==
LOC: EDBD → GEROPSY 15:45
PROVIDERS: ADMIT Psychiatry & Neurology Psychiatry; ATTEND Psychiatry & Neurology Psychiatry
DX: F25.0 Schizoaffective disorder, bipolar type (principal); N39.0 Urinary tract infection, site not specified; F02.81 Dementia in other diseases classified elsewhere, unspecified severity, with behavioral disturbance; E03.9 Hypothyroidism, unspecified; F40.10 Social phobia, unspecified; Z79.899 Other long term (current) drug therapy; F63.9 Impulse disorder, unspecified; G30.9 Alzheimer's disease, unspecified; G47.00 Insomnia, unspecified; K59.00 Constipation, unspecified; R13.10 Dysphagia, unspecified; Z87.440 Personal history of urinary (tract) infections; Z20.822 Contact with and (suspected) exposure to COVID-19; Z88.8 Allergy status to other drugs, medicaments and biological substances
CPT/HCPCS: 36415; 70450; 74018; 80053; 80061; 80164; 81001; 82140; 82306; 82947; 83036; 83540; 83550; 83735; 84436; 84443; 84480; 85025; 85610; 86592; 86705; 86709; 86803; 87075; 87077; 87086; 87186; 87340; 93005; U0003; 97116; 97535